=== PATIENT | male | born 1940 | race Caucasian/White ===

== ENCOUNTER → 2016-11-25 | Outpatient (CLI) | payer OTHER ==
[~2016-11-25] MED LIST: ATRINSX NEB; BETH50TA2 PO; BIMA0.01 OPB; CHOL100010 PO; CHOL2000 PO; FLM4 PO; IPRA1AER2 INH; LEVO500T19 PO; LPR100 PO; MISCTAB88 PO; MOME200A INH; NRN600 PO; PRED10TA PO; SNG10 PO; TRAZ50TA35 PO; TYLER650 PO; WARF4TAB43 PO
[2016-11-25 12:13] LABS: HEMATOCRIT 47.3 % (42-52); MEAN CELL VOLUME 94.8 fL (80-100); MEAN CORPUSCULAR HEMOGLOBIN 30.9 pg (25-34); MEAN CORPUSCULAR HGB CONC 32.6 g/dl (32-36); MEAN PLATELET VOLUME 10.4 fL (7.4-10.4); PLATELET COUNT 145 K/uL (130-400); RED BLOOD COUNT 4.99 M/uL (4.7-6.1); WHITE BLOOD COUNT 8.09 K/uL (4.8-10.8)
[2016-11-25 12:18] LABS: URINE APPEARANCE CLEAR (CLEAR); URINE BILIRUBIN NEG (NEG); URINE COLOR YELLOW; URINE NITRITE NEG (NEG); URINE SPECIFIC GRAVITY 1.012 (1.000-1.030); UROBILINOGEN NEG (NEG)
[2016-11-25 12:27] LABS: MANUAL MICROSCOPIC REQUIRED? NO; REVIEW REQ? NO
[2016-11-25 12:34] LABS: ALT/SGPT 25 U/L (12-78); AST/SGOT 17 U/L (15-37); BLOOD UREA NITROGEN 15 mg/dl (7-18); BUN/CREATININE RATIO 7.7 (10-20); CARBON DIOXIDE 33 mmol/L (21-32); CHLORIDE 105 mmol/L (98-107); GLUCOSE 100 mg/dl (70-99); PHOSPHORUS 2.9 mg/dl (2.5-4.9); POTASSIUM 4.2 mmol/L (3.5-5.1); SODIUM 143 mmol/L (136-145)
[2016-11-25 12:54] LABS: URINE PROTIEN/CREAT RATIO 0.2 (0-0.2); URINE TOTAL PROTEIN 23.6 mg/dl (0-11.9)
[2016-11-25 14:40] LABS: CALCIUM 9.2 mg/dl (8.5-10.1)
== END | disposition home or self-care (01) ==
LOC: C.LABBFT 08:53
PROVIDERS: ATTEND Internal Medicine Nephrology
DX: I10 Essential (primary) hypertension (principal); N18.3 Chronic kidney disease, stage 3 (moderate); R60.9 Edema, unspecified; E55.9 Vitamin D deficiency, unspecified; E78.5 Hyperlipidemia, unspecified

== ENCOUNTER → 2016-12-01 | Outpatient (CLI) | payer OTHER ==
--- NOTE | 2016-12-01 14:11 | DIAGNOSTIC IMAGING REPORT ---
TWO VIEW CHEST CLINICAL HISTORY: COPD. History of left lung resection. FINDINGS: PA and lateral chest radiographs are compared to study dated 04/15/2016 and correlated with chest CT dated 09/17/2015. The PA view is degraded by patient rotation. The heart is enlarged and there is atherosclerotic calcification of the thoracic aorta. The pulmonary vasculature is noncongested. Emphysema and chronic interstitial thickening are similar to previous. There is postoperative change and volume loss in the left lung consistent with a history of left sided pulmonary resection. Airspace opacities at the left lung base are similar to previous. The right lung is grossly clear. No pleural effusion is identified. There is no pneumothorax. The skeletal structures are osteopenic. Degenerative change is noted throughout the thoracic spine. Postoperative change is suggested in the left ribs. IMPRESSION: 1. Cardiomegaly and emphysema. 2. There are postoperative changes from left-sided pulmonary resection. 3. Airspace opacities at the left lung base are unchanged from previous. 4. No acute cardiopulmonary abnormality is seen. Electronically signed by: Sanford Loza M.D. 12/01/2016 2:10 PM Dictated Date/Time: 12/01/2016 2:08 PM
== END | disposition home or self-care (01) ==
LOC: C.RAD1850 13:43
PROVIDERS: ATTEND Internal Medicine Nephrology
DX: N18.3 Chronic kidney disease, stage 3 (moderate) (principal); I12.9 Hypertensive chronic kidney disease with stage 1 through stage 4 chronic kidney disease, or unspecified chronic kidney disease; R60.9 Edema, unspecified; I51.7 Cardiomegaly

== ENCOUNTER → 2017-05-26 | Outpatient (CLI) | payer OTHER ==
[~2017-05-26] MED LIST changes: -ATRINSX NEB; -CHOL2000 PO; -LEVO500T19 PO; -PRED10TA PO
[2017-05-26 12:09] LABS: HEMATOCRIT 40.5 % (42-52); MEAN CELL VOLUME 93.5 fL (80-100); MEAN CORPUSCULAR HEMOGLOBIN 30.5 pg (25-34); MEAN CORPUSCULAR HGB CONC 32.6 g/dl (32-36); MEAN PLATELET VOLUME 10.1 fL (7.4-10.4); PLATELET COUNT 149 K/uL (130-400); RED BLOOD COUNT 4.33 M/uL (4.7-6.1); WHITE BLOOD COUNT 8.45 K/uL (4.8-10.8)
[2017-05-26 12:12] LABS: URINE APPEARANCE CLEAR (CLEAR); URINE BILIRUBIN NEG (NEG); URINE COLOR YELLOW; URINE EPITHELIAL CELL AUTO 0-5 /lpf (0-5); URINE NITRITE NEG (NEG); URINE SPECIFIC GRAVITY 1.014 (1.000-1.030); UROBILINOGEN NEG (NEG)
[2017-05-26 12:13] LABS: MANUAL MICROSCOPIC REQUIRED? NO; REVIEW REQ? NO
[2017-05-26 12:18] LABS: BLOOD UREA NITROGEN 14 mg/dl (7-18); BUN/CREATININE RATIO 9.2 (10-20); CALCIUM 9.2 mg/dl (8.5-10.1); CARBON DIOXIDE 33 mmol/L (21-32); CHLORIDE 104 mmol/L (98-107); CHOLESTEROL 148 mg/dl (0-200); CREATININE 1.55 mg/dl (0.60-1.40); GLUCOSE 98 mg/dl (70-99); SODIUM 142 mmol/L (136-145)
[2017-05-26 12:20] LABS: CHOLESTEROL/HDL RATIO 3.5; HDL CHOLESTEROL 42 mg/dl; LDL CHOLESTEROL CALCULATED 84 mg/dl; PHOSPHORUS 2.6 mg/dl (2.5-4.9); TRIGLYCERIDES 110 mg/dl (0-150); VERY LOW DENSITY LIPOPROT CALC 22 mg/dl
[2017-05-26 12:31] LABS: ESTIMATED AVERAGE GLUCOSE 103 mg/dl; HA1C FLAG Normal (Normal)
[2017-05-26 13:20] LABS: URINE PROTIEN/CREAT RATIO 0.2 (0-0.2); URINE TOTAL PROTEIN 21.9 mg/dl (0-11.9)
== END | disposition home or self-care (01) ==
LOC: C.LABBFT 09:55
PROVIDERS: ATTEND Internal Medicine Nephrology
DX: I12.9 Hypertensive chronic kidney disease with stage 1 through stage 4 chronic kidney disease, or unspecified chronic kidney disease (principal); N18.3 Chronic kidney disease, stage 3 (moderate); R60.9 Edema, unspecified; E55.9 Vitamin D deficiency, unspecified; E78.5 Hyperlipidemia, unspecified; R73.01 Impaired fasting glucose

== ENCOUNTER 2017-06-08 17:27 | Inpatient (IN) | payer OTHER ==
[~2017-06-08] VITALS: Ht 182.9 cm; Wt 110.6 kg
[2017-06-08] MEDS ORDERED: ALBUT/IPRATROP 3MG/0.5MG NEB 3 ML VIAL INH STA (18:25)
[2017-06-08] MEDS ORDERED: METHYLPREDNISOLONE 125 MG VIAL IV STA (18:25)
--- NOTE | 2017-06-08 19:04 | DIAGNOSTIC IMAGING REPORT ---
CHEST ONE VIEW PORTABLE CLINICAL HISTORY: 77 years-old Male presenting with EVALUATE RESPIRATORY DISTRESS.DYSPNEA. TECHNIQUE: Portable upright AP view of the chest was obtained. COMPARISON: 12/01/2016. FINDINGS: The patient is BALDWIN rotated. Atherosclerosis of aortic arch. Cardiac silhouette enlarged and largely obscured along the left heart border. Extensive opacification of the left lung suspected allowing for patient rotation. Additionally, focal density projects over the right paratracheal region. No pneumothorax. Osseous structures normal. Upper abdomen normal. IMPRESSION: 1. Limited evaluation secondary to patient rotation and portable AP technique. Further evaluation with chest CT recommended. 2. Cardiomegaly. 3. Extensive left lung opacity likely consolidation with effusion. 4. Right paratracheal density of uncertain etiology. Lymphadenopathy not excluded. Electronically signed by: Brett Graham M.D. 06/08/2017 7:03 PM Dictated Date/Time: 06/08/2017 7:01 PM
[2017-06-08 19:08] LABS: BASO % 0.4 %; BASO ABS # 0.04 K/uL (0-0.2); COMPLETE YES; EOS % 2.7 %; HEMATOCRIT 40.4 % (42-52); IG% 0.2 %; LYMPH % 12.1 %; LYMPH ABS # 1.17 K/uL (1.2-3.4); MEAN CELL VOLUME 93.7 fL (80-100); MEAN CORPUSCULAR HEMOGLOBIN 30.9 pg (25-34); MEAN CORPUSCULAR HGB CONC 32.9 g/dl (32-36); MEAN PLATELET VOLUME 9.6 fL (7.4-10.4); MONO % 5.5 %; NEUT % 79.1 %; PLATELET COUNT 135 K/uL (130-400); RED BLOOD COUNT 4.31 M/uL (4.7-6.1); WHITE BLOOD COUNT 9.63 K/uL (4.8-10.8)
[2017-06-08 19:30] LABS: URINE APPEARANCE CLEAR (CLEAR); URINE BILIRUBIN NEG (NEG); URINE COLOR YELLOW; URINE NITRITE NEG (NEG); URINE SPECIFIC GRAVITY 1.017 (1.000-1.030); UROBILINOGEN NEG (NEG)
[2017-06-08 19:31] LABS: MANUAL MICROSCOPIC REQUIRED? NO; REVIEW REQ? NO
[2017-06-08 19:33] LABS: ALT/SGPT 14 U/L (12-78); AST/SGOT 13 U/L (15-37); BLOOD UREA NITROGEN 8 mg/dl (7-18); CALCIUM 8.4 mg/dl (8.5-10.1); CARBON DIOXIDE 32 mmol/L (21-32); CHLORIDE 101 mmol/L (98-107); GLUCOSE 106 mg/dl (70-99); INR 2.2 (0.9-1.1); PARTIAL THROMBOPLASTIN RATIO 1.5; POTASSIUM 3.6 mmol/L (3.5-5.1); PROTHROMBIN TIME (PATIENT) 24.4 SECONDS (9.0-12.0); SODIUM 137 mmol/L (136-145)
[2017-06-08 19:38] LABS: ALB/GLOB RATIO 0.8 (0.9-2); ALKALINE PHOSPHATASE 60 U/L (45-117); CKMB/CK RATIO 2.1 (0-3.0)
[2017-06-08] MEDS ORDERED: ATRINSX NEB (19:56)
[2017-06-08] MEDS ORDERED: CHOL2000 PO (19:57)
--- NOTE | 2017-06-08 20:49 | DIAGNOSTIC IMAGING REPORT ---
(CHEST) THORAX WITHOUT CLINICAL HISTORY: 77 years-old Male presenting with left sided effusion/mass, abn cxr. TECHNIQUE: Multidetector CT imaging of the chest was performed without the use of intravenous contrast. IV contrast: None. A dose lowering technique was used consistent with the principles of ALARA (as low as reasonably achievable). COMPARISON: Chest x-ray performed earlier the same day an chest CT from 09/17/2015. CT DOSE (mGy.cm): The estimated cumulative dose is 695.59 mGy.cm. FINDINGS: Sash Finisher topogram: Extensive left basilar opacity. On soft tissue windows, bilateral gynecomastia. Normal thyroid. Multiple enlarged mediastinal lymph nodes measuring up to 16 mm in the short axis. These were present on the prior exam and are stable to slightly increased in size. Atherosclerosis of the aorta. Multichamber enlargement of the heart. Coronary artery calcification. No pericardial or pleural effusion. Upper abdomen normal. On lung windows, extensive left lung volume loss stable to slightly increased from prior exam. Groundglass and reticular opacities as well as patchy solid consolidation noted in the left lung primarily in the lingula and basal segments of the left lower lobe. A suture margin may be present at the left lung base. Solid peripheral nodule noted in the superior segment of the left lower lobe measuring 8 mm new from prior. Extensive bronchial wall thickening and debris in the left mainstem bronchus and left lung airways. Only mild bronchial wall thickening noted in the right lung. Minimal patchy groundglass opacity noted in the right lower lobe. Solid 5 mm pulmonary nodule in the right upper lobe (series 4 image 118). Few scattered additional smaller nodules in the right lung. On bone windows, degenerative changes of the spine. IMPRESSION: 1. Interval increase in left lung consolidation primarily in the lingula and basal segments with extensive bronchial wall thickening and debris in the airways of the left lung. This is concerning for chronic aspiration/aspiration pneumonitis. This appearance is less typical for other diagnostic considerations, which include an atypical infection such as mycobacterium avium intracellulare. 2. Scattered nodularity in the lungs bilaterally. This may represent an infectious or inflammatory etiology, however, follow-up per Charlie Society 2017 recommendations below. 3. Stable slight interval increase in mediastinal lymphadenopathy. Although this may be reactive given the presence of inflammation/infection within the lungs, follow-up should be obtained. Please refer to below summary of Fleischner Society 2017 recommendations for follow-up of incidental CT nodules (H Gus et al. Guidelines for management of incidental pulmonary nodules detected on CT images: From the Fleischner Society 2017. Radiology 2017; 284: 228-243.) SOLID NODULES Single nodule; size < 6 mm * Low risk patients: No routine follow-up * High risk patients: Optional CT at 12 months Single nodule; size 6-8 mm * Low risk patients: CT at 6-12 months, then consider CT at 18-24 months * High risk patients: CT at 6-12 months, then at 18-24 months Single nodule; size > 8 mm * Either low or high risk patients: Considered CT at 3 months, PET/CT, or tissue sampling Multiple nodules; size < 6 mm * Low risk patients: No routine follow up * High risk patients: Optional CT at 12 months Multiple nodules; size 6-8 mm * Low risk patients: CT at 3-6 months, then consider CT at 18-24 months * High risk patients: CT at 3-6 months, then at 18-24 months Multiple nodules; size > 8 mm * Low risk patients: CT at 3-6 months, then consider at 18-24 months * High risk patients: CT at 3-6 months, then at 18-24 months Note: These guidelines apply to incidental nodules. These guidelines do not apply to patients younger than 35 years, immunocompromised patients, or patients with cancer. * Low risk patients: Minimal or absent history of smoking and/or other known risk factors * High risk patients: History of smoking, exposure to other carcinogens, emphysema, fibrosis, upper lobe location, family history of lung cancer, etc. * If a nodule up to 8 mm is partly solid or is ground glass, further follow-up is required after 24 months to exclude possible slow growing adenocarcinoma. SUBSOLID NODULES Single ground-glass nodule * Nodule size < 6 mm: No routine follow-up * Nodule size > or = 6 mm: CT at 6-12 months to confirm persistence, then CT every 2 years until 5 years Single part-solid nodule * Nodule size < 6 mm: No routine follow-up * Nodules size > or = 6 mm: CT at 3-6 months to confirm persistence. If unchanged and solid component remains < 6 mm, annual CT should be performed for 5 years Multiple nodules * Nodule size < 6 mm: CT at 3-6 months. If stable, consider CT at 2 and 4 years. * Nodules size > or = 6 mm: CT at 3-6 months. Subsequent management based on the most suspicious nodule(s) Electronically signed by: Brett Graham M.D. 06/08/2017 8:48 PM Dictated Date/Time: 06/08/2017 8:38 PM
[2017-06-08] MEDS ORDERED: PIPERACILLIN/TAZOBACTAM 4.5 GM/100ML D5W IV STA (20:57)
[2017-06-08] MEDS ORDERED: LEVAQUIN 750MG / 150ML D5W IV STA (20:57)
[2017-06-08] MEDS ORDERED: VANCOMYCIN INJ 1,000 MG in SODIUM CHLORIDE 0.9% 250ML 250 ML IV STA (22:27)
[2017-06-08] MEDS ORDERED: ONDANSETRON INJ 2 MG/ML 2 ML VIAL IV PRN ×2 (22:30)
[2017-06-08] MEDS ORDERED: CEFEPIME IV 2,000 MG in DEXTROSE 5% 100ML 100 ML IV SCH (22:30)
[2017-06-08] MEDS ORDERED: ACETAMINOPHEN 325 MG TAB PO PRN (22:30)
[2017-06-08] MEDS ORDERED: IPRATROPIUM BROMIDE NEB SOLN 0.02% 2.5 ML VIAL INH PRN (22:45)
[2017-06-08] MEDS ORDERED: LEVALBUTEROL 1.25MG/0.5ML NEB INH PRN (22:45)
[2017-06-08] MEDS ORDERED: VANCOMYCIN INJ 2,750 MG in SODIUM CHLORIDE 0.9% 500ML 500 ML IV SCH (23:00)
[2017-06-08] MEDS ORDERED: VANCOMYCIN CONSULT ACTIVE PRN (23:15)
[2017-06-08] MEDS ORDERED: CEFEPIME CONSULT ACTIVE PRN ×2 (23:45)
[2017-06-08] MEDS: TRAZODONE HCL 50 MG TAB PO PRN (23:54)
[2017-06-08 23:55] VITALS: BP 164/102; PULSE 108; TEMP 36.4; O2SAT 91; Ht 182.9 cm; Wt 110.6 kg
[2017-06-09] VITALS (10 sets, daily range): BP systolic 158–184; BP diastolic 87–105; PULSE 64–106; TEMP 36.4–36.7; O2SAT 96–97
--- NOTE | 2017-06-09 01:22 | EMERGENCY ROOM VISIT NOTE ---
History Report prepared by Edilia: Toyin Campoverde Under the Supervision of: Dr. Filippo Gibbons M.D. 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 [place] [facility] [place] 1 albuterol nebulizer treatment without relief of dyspnea and cough. Increased home O2 from 2L to 3L. Sent from [facility] [place] at request of primary physician. History of Present Illness The patient is a 77 year old male who presents to the Emergency Room with complaints of constant shortness of breath beginning yesterday. The patient reports having a productive cough with blood tinged sputum beginning 16 hours ago. The [place] [facility] [place] While there, the patient was and given two albuterol nebulizer treatments without any relief. At home, the patient increased his nasal cannula oxygen from 2L to 3L. The patient was sent from [facility] [place] via [place] at request of primary physician. The patient reports blurry vision which has been a ongoing problem that he is following up with a physician for. The patient denies any recent steroid use. The patient states he has felt fatigued and wheezy for the past couple days. The patient has a history of pneumonia. He reports having his flu shot. The patient is on Warfarin for atrial fibrillation. Pt denies LOC, headache, fevers, chills, diaphoresis, neck pain, chest pain, nausea, vomiting, abdominal pain, back pain , melena, hematochezia, urinary symptoms, numbness, weakness, lymphadenopathy, rash, or other complaints. Source of History: patient Onset: yesterday Position: other (global) Quality: other (shortness of breath) Timing: constant Associated Symptoms: + cough, + SOB, + fatigue, No chest pain, No abdominal pain, No back pain, No urinary symptoms Review of Systems See HPI for pertinent positives and negatives. A total of ten systems were reviewed and were otherwise negative. Past Medical & Surgical Medical Problems: (1) ANTICOAGULANTS,LT,CURRENT USE (2) ATRIAL FIBRILLATION (3) Bacterial pneumonia (4) Bacterial pneumonia, unspecified (5) Benign essential hypertension (6) CHRONIC KIDNEY DISEASE, STAGE III (MODERATE) (7) COPD (chronic obstructive pulmonary disease) Family History Diabetes mellitus FHx: kidney disease Heart disease Hypertension Kidney stone Social History Smoking Status: Never Smoker Alcohol Use: none Drug Use: none Marital Status: Housing Status: lives with family Occupation Status: retired Current/Historical Medications Scheduled Bethanechol Chloride (Bethanechol Chloride), 50 MG PO BID Bimatoprost (Lumigan), 1 DROP OPB QPM Cholecalciferol (Vitamin D3), 2,000 UNITS PO DAILY Gabapentin (Gabapentin), 600 MG PO TID Ipratropium Bartelso (Atrovent 0.02% Soln), 1 VIAL NEB TID Ipratropium-Albuterol (Combivent Respimat), 2 PUFFS INH QID Metoprolol Tartrate (Metoprolol Tartrate), 100 MG PO BID Mometasone Furoate-Formoterol (Dulera 200/5 Mcg), 2 PUFFS INH BID Montelukast Sod (Montelukast Sodium), 10 MG PO DAILY Warfarin Sodium (Warfarin Sodium), 2 MG PO DAILY Scheduled PRN Trazodone Hcl (Trazodone), 50 MG PO HS PRN for Sleep Allergies Coded Allergies: No Known Allergies (Unverified , 06/08/17) Physical Exam Vital Signs Date Time Temp Pulse Resp B/P (MAP) Pulse Ox O2 Delivery O2 Flow Rate FiO2 06/08/17 21:59 102 06/08/17 21:46 92 18 174/98 97 Room Air 06/08/17 19:37 Nasal Cannula 2.0 06/08/17 19:37 88 21 165/95 Nasal Cannula 2.0 06/08/17 18:00 Room Air 06/08/17 18:00 100 06/08/17 17:34 36.4 105 20 165/95 97 Nasal Cannula 2.0 06/08/17 17:34 94 Nasal Cannula 2.0 Physical Exam GENERAL: Awake, alert, fatigued and dyspneic-appearing, in no distress HENT: Normocephalic, atraumatic. Oropharynx unremarkable. EYES: Normal conjunctiva. Sclera non-icteric. NECK: Supple. No nuchal rigidity. FROM. No JVD. RESPIRATORY: Expiratory wheezes of right ride CARDIAC: Regular rate, normal rhythm. Extremities warm and well perfused. Pulses equal. ABDOMEN: Soft, non-distended. No tenderness to palpation. No rebound or guarding. No masses. RECTAL: Deferred. MUSCULOSKELETAL: Chest examination reveals no tenderness. The back is symmetrical on inspection without obvious abnormality. There is no CVA tenderness to palpation. No joint edema. LOWER EXTREMITIES: Calves are equal size bilaterally and non-tender. No edema. Chronic venous discoloration of legs. NEURO: Normal sensorium. No sensory or motor deficits noted. SKIN: No rash or jaundice noted. Medical Decision & Procedures ER Provider Diagnostic Interpretation: Radiology results as stated below per my review and radiologist interpretation: CHEST ONE VIEW PORTABLE. FINDINGS: The patient is BALDWIN rotated. Atherosclerosis of aortic arch. Cardiac silhouette enlarged and largely obscured along the left heart border. Extensive opacification of the left lung suspected allowing for patient rotation. Additionally, focal density projects over the right paratracheal region. No pneumothorax. Osseous structures normal. Upper abdomen normal. IMPRESSION: 1. Limited evaluation secondary to patient rotation and portable AP technique. Further evaluation with chest CT recommended. 2. Cardiomegaly. 3. Extensive left lung opacity likely consolidation with effusion. 4. Right paratracheal density of uncertain etiology. Lymphadenopathy not excluded. Electronically signed by: Brett Graham M.D. (CHEST) THORAX WITHOUT FINDINGS: Business Improvement Manager topogram: Extensive left basilar opacity. On soft tissue windows, bilateral gynecomastia. Normal thyroid. Multiple enlarged mediastinal lymph nodes measuring up to 16 mm in the short axis. These were present on the prior exam and are stable to slightly increased in size. Atherosclerosis of the aorta. Multichamber enlargement of the heart. Coronary artery calcification. No pericardial or pleural effusion. Upper abdomen normal. On lung windows, extensive left lung volume loss stable to slightly increased from prior exam. Groundglass and reticular opacities as well as patchy solid consolidation noted in the left lung primarily in the lingula and basal segments of the left lower lobe. A suture margin may be present at the left lung base. Solid peripheral nodule noted in the superior segment of the left lower lobe measuring 8 mm new from prior. Extensive bronchial wall thickening and debris in the left mainstem bronchus and left lung airways. Only mild bronchial wall thickening noted in the right lung. Minimal patchy groundglass opacity noted in the right lower lobe. Solid 5 mm pulmonary nodule in the right upper lobe (series 4 image 118). Few scattered additional smaller nodules in the right lung. On bone windows, degenerative changes of the spine. IMPRESSION: 1. Interval increase in left lung consolidation primarily in the lingula and basal segments with extensive bronchial wall thickening and debris in the airways of the left lung. This is concerning for chronic aspiration/aspiration pneumonitis. This appearance is less typical for other diagnostic considerations, which include an atypical infection such as mycobacterium avium intracellulare. 2. Scattered nodularity in the lungs bilaterally. This may represent an infectious or inflammatory etiology, however, follow-up per Charlie Society 2017 recommendations below. 3. Stable slight interval increase in mediastinal lymphadenopathy. Although this may be reactive given the presence of inflammation/infection within the lungs, follow-up should be obtained. Please refer to below summary of Fleischner Society 2017 recommendations for follow-up of incidental CT nodules (H Gus et al. Guidelines for management of incidental pulmonary nodules detected on CT images: From the Fleischner Society 2017. Radiology 2017; 284: 228-243.) SOLID NODULES Single nodule; size < 6 mm * Low risk patients: No routine follow-up * High risk patients: Optional CT at 12 months Single nodule; size 6-8 mm * Low risk patients: CT at 6-12 months, then consider CT at 18-24 months * High risk patients: CT at 6-12 months, then at 18-24 months Single nodule; size > 8 mm * Either low or high risk patients: Considered CT at 3 months, PET/CT, or tissue sampling Multiple nodules; size < 6 mm * Low risk patients: No routine follow up * High risk patients: Optional CT at 12 months Multiple nodules; size 6-8 mm * Low risk patients: CT at 3-6 months, then consider CT at 18-24 months * High risk patients: CT at 3-6 months, then at 18-24 months Multiple nodules; size > 8 mm * Low risk patients: CT at 3-6 months, then consider at 18-24 months * High risk patients: CT at 3-6 months, then at 18-24 months Note: These guidelines apply to incidental nodules. These guidelines do not apply to patients younger than 35 years, immunocompromised patients, or patients with cancer. * Low risk patients: Minimal or absent history of smoking and/or other known risk factors * High risk patients: History of smoking, exposure to other carcinogens, emphysema, fibrosis, upper lobe location, family history of lung cancer, etc. * If a nodule up to 8 mm is partly solid or is ground glass, further follow-up is required after 24 months to exclude possible slow growing adenocarcinoma. SUBSOLID NODULES Single ground-glass nodule * Nodule size < 6 mm: No routine follow-up * Nodule size > or = 6 mm: CT at 6-12 months to confirm persistence, then CT every 2 years until 5 years Single part-solid nodule * Nodule size < 6 mm: No routine follow-up * Nodules size > or = 6 mm: CT at 3-6 months to confirm persistence. If unchanged and solid component remains < 6 mm, annual CT should be performed for 5 years Multiple nodules * Nodule size < 6 mm: CT at 3-6 months. If stable, consider CT at 2 and 4 years. * Nodules size > or = 6 mm: CT at 3-6 months. Subsequent management based on the most suspicious nodule(s) Electronically signed by: Brett Graham M.D. Laboratory Results 06/08/17 18:51 Red Blood Count 4.31, Mean Corpuscular Volume 93.7, Mean Corpuscular Hemoglobin 30.9, Mean Corpuscular Hemoglobin Concent 32.9, Mean Platelet Volume 9.6, Neutrophils (%) (Auto) 79.1, Lymphocytes (%) (Auto) 12.1, Monocytes (%) (Auto) 5.5, Eosinophils (%) (Auto) 2.7, Basophils (%) (Auto) 0.4, Neutrophils # (Auto) 7.61, Lymphocytes # (Auto) 1.17, Monocytes # (Auto) 0.53, Eosinophils # (Auto) 0.26, Basophils # (Auto) 0.04 06/08/17 18:51 Test 06/08/17 18:51 06/08/17 19:00 White Blood Count 9.63 K/uL (4.8-10.8) Red Blood Count 4.31 M/uL (4.7-6.1) Hemoglobin 13.3 g/dL (14.0-18.0) Hematocrit 40.4 % (42-52) Mean Corpuscular Volume 93.7 fL (80-100) Mean Corpuscular Hemoglobin 30.9 pg (25-34) Mean Corpuscular Hemoglobin Concent 32.9 g/dl (32-36) Platelet Count 135 K/uL (130-400) Mean Platelet Volume 9.6 fL (7.4-10.4) Neutrophils (%) (Auto) 79.1 % Lymphocytes (%) (Auto) 12.1 % Monocytes (%) (Auto) 5.5 % Eosinophils (%) (Auto) 2.7 % Basophils (%) (Auto) 0.4 % Neutrophils # (Auto) 7.61 K/uL (1.4-6.5) Lymphocytes # (Auto) 1.17 K/uL (1.2-3.4) Monocytes # (Auto) 0.53 K/uL (0.11-0.59) Eosinophils # (Auto) 0.26 K/uL (0-0.5) Basophils # (Auto) 0.04 K/uL (0-0.2) RDW Standard Deviation 50.9 fL (36.4-46.3) RDW Coefficient of Variation 14.8 % (11.5-14.5) Immature Granulocyte % (Auto) 0.2 % Immature Granulocyte # (Auto) 0.02 K/uL (0.00-0.02) Prothrombin Time 24.4 SECONDS (9.0-12.0) Prothromb Time International Ratio 2.2 (0.9-1.1) Activated Partial Thromboplast Time 38.5 SECONDS (21.0-31.0) Partial Thromboplastin Ratio 1.5 Anion Gap 4.0 mmol/L (3-11) Est Creatinine Clear Calc Drug Dose 56.0 ml/min Estimated GFR () 55.0 Estimated GFR (Non- 47.5 BUN/Creatinine Ratio 6.0 (10-20) Calcium Level 8.4 mg/dl (8.5-10.1) Total Bilirubin 1.0 mg/dl (0.2-1) Aspartate Amino Transf (AST/SGOT) 13 U/L (15-37) Alanine Aminotransferase (ALT/SGPT) 14 U/L (12-78) Alkaline Phosphatase 60 U/L (45-117) Total Creatine Kinase 43 U/L (39-308) Creatine Kinase MB 0.9 ng/ml (0.5-3.6) Creatine Kinase MB Ratio 2.1 (0-3.0) Troponin I < 0.015 ng/ml (0-0.045) Pro-B-Type Natriuretic Peptide 3926 pg/ml (0-1800) Total Protein 6.9 gm/dl (6.4-8.2) Albumin 3.1 gm/dl (3.4-5.0) Globulin 3.8 gm/dl (2.5-4.0) Albumin/Globulin Ratio 0.8 (0.9-2) Urine Color YELLOW Urine Appearance CLEAR (CLEAR) Urine pH 6.0 (4.5-7.5) Urine Specific [place] 1.017 (1.000-1.030) Urine Protein 1+ (NEG) Urine Glucose (UA) NEG (NEG) Urine Ketones TRACE (NEG) Urine Occult Blood NEG (NEG) Urine Nitrite NEG (NEG) Urine Bilirubin NEG (NEG) Urine Urobilinogen NEG (NEG) Urine Leukocyte Esterase NEG (NEG) Urine WBC (Auto) 1-5 /hpf (0-5) Urine RBC (Auto) 0-4 /hpf (0-4) Urine Hyaline Casts (Auto) 1-5 /lpf (0-5) Urine Epithelial Cells (Auto) 5-10 /lpf (0-5) Urine Bacteria (Auto) NEG (NEG) Laboratory results reviewed by me Medications Administered Medications (Trade) Dose Ordered Sig/Prem Route Start Time Stop Time Status Last Admin Dose Admin Methylprednisolone Sodium Succinate (Solu-Medrol IV) 125 mg NOW STAT IV 06/08/17 18:25 06/08/17 18:26 DC 06/08/17 19:45 125 MG Albuterol/ Ipratropium (Duoneb) 3 ml NOW STAT INH 06/08/17 18:25 06/08/17 18:26 DC 06/08/17 19:37 3 ML Piperacillin Sod/ Tazobactam Sod (Zosyn Iv) 4.5 gm NOW STAT IV 06/08/17 20:57 06/08/17 20:59 DC 06/08/17 21:41 4.5 GM Levofloxacin (Levaquin / D5W) 750 mg NOW STAT IV 06/08/17 20:57 06/08/17 20:59 DC 06/08/17 21:41 750 MG ECG Indication: SOB/dyspnea Rate (beats per minute): 94 Rhythm: atrial fibrillation Findings: RBBB (incomplete), no acute ischemic change, no ectopy ED Course 1817: The patient was evaluated in room B3A. A complete history and physical exam was performed. 5: Ordered DuoNeb 3 ml INH, Solu-Medrol IV 125 mg IV. 1946: I updated the patient on his chest X-ray results. 2056: Ordered Levofloxacin 750 mg IV, Zosyn IV 4.5 gm IV. 2058: I updated the patient on his CT results. 2104: Discussed the patient's case with Dr. Maddox. The patient will be evaluated for further treatment and disposition. Medical Decision Triage Nursing notes reviewed. The patient's presentation and history were concerning for sob. Etiologies such as pneumonia, COPD, reactive airway disease, CHF, cardiac ischemia, pulmonary embolism, pneumothorax, musculoskeletal, infections, gastrointestinal, as well as others were entertained. The patient was evaluated. He was wheezing on examination which was worse on the right side. The patient was given a nebulizer treatment as well as Solu- Medrol. Chest x-ray was performed and was abnormal as above. The patient had a mild anemia on CBC but no leukocytosis. Chemistry panel, LFTs, troponin and urinalysis were unremarkable. BNP was elevated but was just slightly more than prior. Radiology recommended CT imaging of the chest and this was performed. He has consolidation, exploding, and volume loss on the left side. This is concerning. Radiology noted the possibility of aspiration given the CT appearance. The patient was administered Zosyn and Levaquin for antibiotic coverage due to the consolidation and CT findings. He was reassessed and was stable. Consultation was with internal medicine. The patient was evaluated in the Emergency Room for further management. Medication Reconcilliation Current Medication List: was personally reviewed by me Blood Pressure Screening Patient's blood pressure: Elevated blood pressure Blood pressure disposition: Referred to PCP (evaluated by hospitalist ) Consults Time Called: 2104 Consulting Physician: Dr. Maddox Returned Call: 2104 Discussed the patient's case. The patient will be evaluated for further treatment and disposition. Impression Primary Impression: SOB (shortness of breath) Additional Impressions: Pneumonia involving left lung Wheezing Scribe Attestation The scribe's documentation has been prepared under my direction and personally reviewed by me in its entirety. I confirm that the note above accurately reflects all work, treatment, procedures, and medical decision making performed by me. Departure Information Dispostion Being Evaluated By Hospitalist Referrals Luis Colmenares M.D. (PCP) Patient Instructions My [facility] Health Problem Qualifiers
[2017-06-09] MEDS: IPRATROPIUM BROMIDE NEB SOLN 0.02% 2.5 ML VIAL INH SCH ×4 (01:45→19:14)
[2017-06-09] MEDS: LEVALBUTEROL 1.25MG/0.5ML NEB INH SCH ×4 (01:45→19:14)
--- NOTE | 2017-06-09 02:35 | History and Physical ---
History & Physical Date & Time of Service: Jun 09, 2017 at 02:21. The patient was seen and examined on 06/08/2017. Chief Complaint: Bacterial Pneumonia, Unsp. Copd Exacerbatoin Primary Care Physician: Luis Colmenares M.D. History of Present Illness Source: patient, hospital records The patient is a 77-year-old male who is referred to the emergency department by his PCP today for worsening shortness of breath, productive cough with blood tinged sputum, fatigue and wheezing that began yesterday, and did not improve with 2 nebulizer treatments at that office today. He is usually on 2 L of oxygen at home, and he had increased it to 3 L without significant improvement symptoms. He has a previous history of being admitted for pneumonia in 2016. He did get his flu shot this year. He has not had any recent travels or known sick exposures. Past Medical/Surgical History Medical Problems: (1) ANTICOAGULANTS,LT,CURRENT USE Status: Chronic (2) ATRIAL FIBRILLATION Status: Chronic (3) Bacterial pneumonia Status: Resolved (4) Bacterial pneumonia, unspecified Status: Resolved (5) Benign essential hypertension Status: Chronic (6) CHRONIC KIDNEY DISEASE, STAGE III (MODERATE) Status: Chronic (7) COPD (chronic obstructive pulmonary disease) Status: Chronic Family History Diabetes mellitus FHx: kidney disease Heart disease Hypertension Kidney stone Social History Smoking Status: Never Smoker Smokeless Tobacco Use: No Drug Use: none Marital Status: Housing status: lives with family Occupational Status: retired Immunizations History of Influenza Vaccine: Unknown Influenza Vaccine Date: Apr 22, 2011 History of Tetanus Vaccine?: Unknown History of Pneumococcal: Unknown Pneumococcal Date: Jul 22, 2007 History of Hepatitis B Vaccine: Unknown Multi-Drug Resistant Organisms History of MDRO: No Allergies Coded Allergies: No Known Allergies (Unverified , 06/08/17) Home Medications Scheduled Bethanechol Chloride (Bethanechol Chloride), 50 MG PO BID Bimatoprost (Lumigan), 1 DROP OPB QPM Cholecalciferol (Vitamin D3), 2,000 UNITS PO DAILY Gabapentin (Gabapentin), 600 MG PO TID Ipratropium [place] (Atrovent 0.02% Soln), 1 VIAL NEB TID Ipratropium-Albuterol (Combivent Respimat), 2 PUFFS INH QID Metoprolol Tartrate (Metoprolol Tartrate), 100 MG PO BID Mometasone Furoate-Formoterol (Dulera 200/5 Mcg), 2 PUFFS INH BID Montelukast Sod (Montelukast Sodium), 10 MG PO DAILY Warfarin Sodium (Warfarin Sodium), 2 MG PO DAILY Scheduled PRN Trazodone Hcl (Trazodone), 50 MG PO HS PRN for Sleep Review of Systems The patient denies chest pain, palpitations, lower extremity swelling, sore throat, fevers, chills, sweats, weight change. nausea, vomiting, diarrhea or constipation, abdominal pain, pelvic pain, blood in urine or stool, dysuria, urinary frequency or urgency, lightheadedness, dizziness, headache, loss of consciousness, rash, abnormal bruising or bleeding, imbalance, focal weakness, numbness or tingling in arms or legs, generalized arthralgias or myalgias, back or neck pain, or night sweats. The review of systems is otherwise negative other than for that already noted above, and at least 10 systems have been reviewed. Physical Exam Vital Signs Date Time Temp Pulse Resp B/P (MAP) Pulse Ox O2 Delivery O2 Flow Rate FiO2 06/09/17 01:49 92 14 96 Nasal Cannula 2.0 06/08/17 23:55 36.4 108 16 164/102 91 Nasal Cannula 2.0 06/08/17 23:06 90 22 95 Nasal Cannula 2.0 06/08/17 21:59 102 06/08/17 21:46 92 18 174/98 97 Room Air 06/08/17 19:37 Nasal Cannula 2.0 06/08/17 19:37 88 21 165/95 Nasal Cannula 2.0 06/08/17 18:00 Room Air 06/08/17 18:00 100 06/08/17 17:34 36.4 105 20 165/95 97 Nasal Cannula 2.0 06/08/17 17:34 94 Nasal Cannula 2.0 The patient is awake, alert and oriented 3, normocephalic and atraumatic, lying in bed and in no acute distress. HEENT--PERRL, EOMI, mucous membranes and oropharynx dry. Neck--supple, no JVD or bruits, thyroid normal, trachea midline, no adenopathy. Heart--normal S1 and S2, no extra beats, no murmurs, rubs or gallops. Lungs--coarse breath sounds bilaterally, worse on left, no respiratory distress , no accessory muscle use. Abdomen--normal bowel sounds and soft, nontender and nondistended, no hernias or masses, no organomegaly. Extremities--no cyanosis, clubbing or edema. There are good distal pulses b/l. Dermatologic--normal skin turgor, normal color, warm and dry, no abnormal lymph nodes, no rash. Neurologic--cranial nerves II through XII grossly intact. Rheumatologic--normal range of motion. Psychiatric--normal affect. Diagnostics Laboratory Results Results Past 24 Hours Test 06/08/17 18:51 06/08/17 19:00 Range/Units White Blood Count 9.63 4.8-10.8 K/uL Red Blood Count 4.31 4.7-6.1 M/uL Hemoglobin 13.3 14.0-18.0 g/dL Hematocrit 40.4 42-52 % Mean Corpuscular Volume 93.7 80-100 fL Mean Corpuscular Hemoglobin 30.9 25-34 pg Mean Corpuscular Hemoglobin Concent 32.9 32-36 g/dl Platelet Count 135 130-400 K/uL Mean Platelet Volume 9.6 7.4-10.4 fL Neutrophils (%) (Auto) 79.1 % Lymphocytes (%) (Auto) 12.1 % Monocytes (%) (Auto) 5.5 % Eosinophils (%) (Auto) 2.7 % Basophils (%) (Auto) 0.4 % Neutrophils # (Auto) 7.61 1.4-6.5 K/uL Lymphocytes # (Auto) 1.17 1.2-3.4 K/uL Monocytes # (Auto) 0.53 0.11-0.59 K/uL Eosinophils # (Auto) 0.26 0-0.5 K/uL Basophils # (Auto) 0.04 0-0.2 K/uL RDW Standard Deviation 50.9 36.4-46.3 fL RDW Coefficient of Variation 14.8 11.5-14.5 % Immature Granulocyte % (Auto) 0.2 % Immature Granulocyte # (Auto) 0.02 0.00-0.02 K/uL Prothrombin Time 24.4 9.0-12.0 SECONDS Prothromb Time International Ratio 2.2 0.9-1.1 Activated Partial Thromboplast Time 38.5 21.0-31.0 SECONDS Partial Thromboplastin Ratio 1.5 Sodium Level 137 136-145 mmol/L Potassium Level 3.6 3.5-5.1 mmol/L Chloride Level 101 98-107 mmol/L Carbon Dioxide Level 32 21-32 mmol/L Anion Gap 4.0 3-11 mmol/L Blood Urea Nitrogen 8 7-18 mg/dl Creatinine 1.40 0.60-1.40 mg/dl Est Creatinine Clear Calc Drug Dose 56.0 ml/min Estimated GFR () 55.0 Estimated GFR (Non- 47.5 BUN/Creatinine Ratio 6.0 10-20 Random Glucose 106 70-99 mg/dl Calcium Level 8.4 8.5-10.1 mg/dl Total Bilirubin 1.0 0.2-1 mg/dl Aspartate Amino Transf (AST/SGOT) 13 15-37 U/L Alanine Aminotransferase (ALT/SGPT) 14 12-78 U/L Alkaline Phosphatase 60 45-117 U/L Total Creatine Kinase 43 39-308 U/L Creatine Kinase MB 0.9 0.5-3.6 ng/ml Creatine Kinase MB Ratio 2.1 0-3.0 Troponin I < 0.015 0-0.045 ng/ml Pro-B-Type Natriuretic Peptide 3926 0-1800 pg/ml Total Protein 6.9 6.4-8.2 gm/dl Albumin 3.1 3.4-5.0 gm/dl Globulin 3.8 2.5-4.0 gm/dl Albumin/Globulin Ratio 0.8 0.9-2 Urine Color YELLOW Urine Appearance CLEAR CLEAR Urine pH 6.0 4.5-7.5 Urine Specific [place] 1.017 1.000-1.030 Urine Protein 1+ NEG Urine Glucose (UA) NEG NEG Urine Ketones TRACE NEG Urine Occult Blood NEG NEG Urine Nitrite NEG NEG Urine Bilirubin NEG NEG Urine Urobilinogen NEG NEG Urine Leukocyte Esterase NEG NEG Urine WBC (Auto) 1-5 0-5 /hpf Urine RBC (Auto) 0-4 0-4 /hpf Urine Hyaline Casts (Auto) 1-5 0-5 /lpf Urine Epithelial Cells (Auto) 5-10 0-5 /lpf Urine Bacteria (Auto) NEG NEG Microbiology Results 06/08/17 Blood Culture, Received Pending 06/08/17 Blood Culture, Received Pending Diagnostic Radiology Patient Name: FATOUMATA CASTELLANOS Unit Number: [id number] Dictated: 06/08/171900 Transcribed: 06/08/171900 PBS Printed Date/Time: [~ rep prt dt]/[~ rep prt tm] [~ rep ct labl] - [~ rep ct ivnm] [facility] [place] [address] Dictated: 06/08/171900 Transcribed: 06/08/171900 PBS Printed Date/Time: [~ rep prt dt]/[~ rep prt tm] [~ rep ct labl] - [~ rep ct ivnm] CHEST ONE VIEW PORTABLE CLINICAL HISTORY: 77 years-old Male presenting with EVALUATE RESPIRATORY DISTRESS.DYSPNEA. TECHNIQUE: Portable upright AP view of the chest was obtained. COMPARISON: 12/01/2016. FINDINGS: The patient is BALDWIN rotated. Atherosclerosis of aortic arch. Cardiac silhouette enlarged and largely obscured along the left heart border. Extensive opacification of the left lung suspected allowing for patient rotation. Additionally, focal density projects over the right paratracheal region. No pneumothorax. Osseous structures normal. Upper abdomen normal. IMPRESSION: 1. Limited evaluation secondary to patient rotation and portable AP technique. Further evaluation with chest CT recommended. 2. Cardiomegaly. 3. Extensive left lung opacity likely consolidation with effusion. 4. Right paratracheal density of uncertain etiology. Lymphadenopathy not excluded. Electronically signed by: Brett Graham M.D. 06/08/2017 7:03 PM Dictated Date/Time: 06/08/2017 7:01 PM The status of this report is Signed. Draft = Not yet reviewed or approved by Radiologist. Signed = Reviewed and approved by Radiologist. <AttendingPhy></AttendingPhy> <FamilyPhy>Luis Colmenares M.D.</FamilyPhy > <PrimaryPhy>Luis Colmenares M.D.</PrimaryPhy> <UnitNumber>[id number]</ UnitNumber> <VisitNumber>[id number]</VisitNumber> <PatientName>FATOUMATA CASTELLANOS </PatientName> <DateOfBirth>1940</DateOfBirth> <Location>C.EDB</Location> <ServiceDate>06/08/17</ServiceDate> <MNE>ESINDI</MNE> <OrderingPhy>Filippo Gibbons MD</OrderingPhy> <OrderingPhyMNE>f rep ord dr elliott</OrderingPhyMNE> < DictatingPhyMNE>f rep dict dr elliott</DictatingPhyMNE> <CCListMNE>f rep ct mne</ CCListMNE> <AdmittingPhyMNE>f pt admit dr elliott</AdmittingPhyMNE> <AttendingPhyMNE >f pt attend dr elliott</AttendingPhyMNE> <ConsultingPhyMNE>f pt consult dr elliott</ConsultingPhyMNE> <FamilyPhyMNE>f pt fam dr elliott</FamilyPhyMNE> <OtherPhyMNE>f pt other dr elliott</OtherPhyMNE> < PrimaryPhyMNE>f pt prim care dr elliott</PrimaryPhyMNE> <ReferringPhyMNE>f pt referring dr elliott</ReferringPhyMNE> Patient Name: FATOUMATA CASTELLANOS Unit Number: [id number] Dictated: 06/08/172037 Transcribed: 06/08/172037 PBS Printed Date/Time: [~ rep prt dt]/[~ rep prt tm] [~ rep ct labl] - [~ rep ct ivnm] [facility] Radiology Department [place] [id number] Dictated: 06/08/172037 Transcribed: 06/08/172037 PBS Printed Date/Time: [~ rep prt dt]/[~ rep prt tm] [~ rep ct labl] - [~ rep ct ivnm] (CHEST) THORAX WITHOUT CLINICAL HISTORY: 77 years-old Male presenting with left sided effusion/mass, abn cxr. TECHNIQUE: Multidetector CT imaging of the chest was performed without the use of intravenous contrast. IV contrast: None. A dose lowering technique was used consistent with the principles of ALARA (as low as reasonably achievable). COMPARISON: Chest x-ray performed earlier the same day an chest CT from 09/17/2015. CT DOSE (mGy.cm): The estimated cumulative dose is 695.59 mGy.cm. FINDINGS: Drywall Finisher topogram: Extensive left basilar opacity. On soft tissue windows, bilateral gynecomastia. Normal thyroid. Multiple enlarged mediastinal lymph nodes measuring up to 16 mm in the short axis. These were present on the prior exam and are stable to slightly increased in size. Atherosclerosis of the aorta. Multichamber enlargement of the heart. Coronary artery calcification. No pericardial or pleural effusion. Upper abdomen normal. On lung windows, extensive left lung volume loss stable to slightly increased from prior exam. Groundglass and reticular opacities as well as patchy solid consolidation noted in the left lung primarily in the lingula and basal segments of the left lower lobe. A suture margin may be present at the left lung base. Solid peripheral nodule noted in the superior segment of the left lower lobe measuring 8 mm new from prior. Extensive bronchial wall thickening and debris in the left mainstem bronchus and left lung airways. Only mild bronchial wall thickening noted in the right lung. Minimal patchy groundglass opacity noted in the right lower lobe. Solid 5 mm pulmonary nodule in the right upper lobe (series 4 image 118). Few scattered additional smaller nodules in the right lung. On bone windows, degenerative changes of the spine. IMPRESSION: 1. Interval increase in left lung consolidation primarily in the lingula and basal segments with extensive bronchial wall thickening and debris in the airways of the left lung. This is concerning for chronic aspiration/aspiration pneumonitis. This appearance is less typical for other diagnostic considerations, which include an atypical infection such as mycobacterium avium intracellulare. 2. Scattered nodularity in the lungs bilaterally. This may represent an infectious or inflammatory etiology, however, follow-up per Charlie Society 2017 recommendations below. 3. Stable slight interval increase in mediastinal lymphadenopathy. Although this may be reactive given the presence of inflammation/infection within the lungs, follow-up should be obtained. Please refer to below summary of Fleischner Society 2017 recommendations for follow-up of incidental CT nodules (Dale Weber et al. Guidelines for management of incidental pulmonary nodules detected on CT images: From the Fleischner Society 2017. Radiology 2017; 284: 228-243.) SOLID NODULES Single nodule; size < 6 mm * Low risk patients: No routine follow-up * High risk patients: Optional CT at 12 months Single nodule; size 6-8 mm * Low risk patients: CT at 6-12 months, then consider CT at 18-24 months * High risk patients: CT at 6-12 months, then at 18-24 months Single nodule; size > 8 mm * Either low or high risk patients: Considered CT at 3 months, PET/CT, or tissue sampling Multiple nodules; size < 6 mm * Low risk patients: No routine follow up * High risk patients: Optional CT at 12 months Multiple nodules; size 6-8 mm * Low risk patients: CT at 3-6 months, then consider CT at 18-24 months * High risk patients: CT at 3-6 months, then at 18-24 months Multiple nodules; size > 8 mm * Low risk patients: CT at 3-6 months, then consider at 18-24 months * High risk patients: CT at 3-6 months, then at 18-24 months Note: These guidelines apply to incidental nodules. These guidelines do not apply to patients younger than 35 years, immunocompromised patients, or patients with cancer. * Low risk patients: Minimal or absent history of smoking and/or other known risk factors * High risk patients: History of smoking, exposure to other carcinogens, emphysema, fibrosis, upper lobe location, family history of lung cancer, etc. * If a nodule up to 8 mm is partly solid or is ground glass, further follow-up is required after 24 months to exclude possible slow growing adenocarcinoma. SUBSOLID NODULES Single ground-glass nodule * Nodule size < 6 mm: No routine follow-up * Nodule size > or = 6 mm: CT at 6-12 months to confirm persistence, then CT every 2 years until 5 years Single part-solid nodule * Nodule size < 6 mm: No routine follow-up * Nodules size > or = 6 mm: CT at 3-6 months to confirm persistence. If unchanged and solid component remains < 6 mm, annual CT should be performed for 5 years Multiple nodules * Nodule size < 6 mm: CT at 3-6 months. If stable, consider CT at 2 and 4 years. * Nodules size > or = 6 mm: CT at 3-6 months. Subsequent management based on the most suspicious nodule(s) Electronically signed by: Brett Graham M.D. 06/08/2017 8:48 PM Dictated Date/Time: 06/08/2017 8:38 PM The status of this report is Signed. Draft = Not yet reviewed or approved by Radiologist. Signed = Reviewed and approved by Radiologist. <AttendingPhy></AttendingPhy> <FamilyPhy>Luis Colmenares M.D.</FamilyPhy > <PrimaryPhy>Luis Colmenares M.D.</PrimaryPhy> <UnitNumber>[id number]</ UnitNumber> <VisitNumber>[id number]</VisitNumber> <PatientName>FATOUMATA CASTELLANOS </PatientName> <DateOfBirth>1940</DateOfBirth> <Location>C.EDB</Location> <ServiceDate>06/08/17</ServiceDate> <MNE>ESINDI</MNE> <OrderingPhy>Filippo Gibbons MD</OrderingPhy> <OrderingPhyMNE>f rep ord dr elliott</OrderingPhyMNE> < DictatingPhyMNE>f rep dict dr elliott</DictatingPhyMNE> <CCListMNE>f rep ct mne</ CCListMNE> <AdmittingPhyMNE>f pt admit dr elliott</AdmittingPhyMNE> <AttendingPhyMNE >f pt attend dr elliott</AttendingPhyMNE> <ConsultingPhyMNE>f pt consult dr elliott</ConsultingPhyMNE> <FamilyPhyMNE>f pt fam dr elliott</FamilyPhyMNE> <OtherPhyMNE>f pt other dr elliott</OtherPhyMNE> < PrimaryPhyMNE>f pt prim care dr elliott</PrimaryPhyMNE> <ReferringPhyMNE>f pt referring dr elliott</ReferringPhyMNE> EKG EKG shows atrial fibrillation at 94 bpm, incomplete right bundle branch block, no acute ST-T changes Impression Assessment and Plan Lingular and left lower lobe pneumonia/bilateral nodules, mediastinal lymphadenopathy-- Admit to the telemetry unit for close oxygen monitoring. Place on vancomycin IV, cefepime IV and levofloxacin IV. Guaifenesin extended release 600 mg by mouth twice a day Xopenex with Atrovent nebulizer every 6 hours while awake and every 2 hours when necessary Solu-Medrol 30 mg IV every 8 hours Nasal cannula 3 L oxygen titrated to keep pulse ox greater than or equal to 92%. Hold Dulera. 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 Padilla. Atrial fibrillation/hypertension/chronic anticoagulation-- Continue metoprolol tartrate 100 mg by mouth twice a day. Warfarin 2 mg by mouth daily with daily PT/INR. Will need to be held and or possibly reversed if bronchoscopy is to be performed. Peripheral neuropathy-- Continue gabapentin 600 mg by mouth 3 times a day. Glaucoma-- Continue Lumigan Insomnia-- Continue trazodone when necessary Level of Care Telemetry Advanced Directives Existing Advance Directive: No Existing Living Will: No Existing Power of Backend Developer: No Resuscitation Status FULL RESUSCITATION VTE Prophylaxis VTE Risk Assessment Done? Y/N: Yes Risk Level: Moderate Given or contraindicated: Warfarin (Coumadin)
[2017-06-09] MEDS ORDERED: LEVALBUTEROL/IPRATROPIUM NEB INH SCH (03:00)
[2017-06-09] MEDS: METHYLPREDNISOLONE IV 30 MG in SYRINGE 0 ML IV SCH ×3 (04:51→20:35)
[2017-06-09 05:47] LABS: BASO % 0.3 %; BASO ABS # 0.02 K/uL (0-0.2); COMPLETE YES; HEMATOCRIT 41.2 % (42-52); IG% 0.3 %; LYMPH % 9.5 %; LYMPH ABS # 0.63 K/uL (1.2-3.4); MEAN CELL VOLUME 92.6 fL (80-100); MEAN CORPUSCULAR HEMOGLOBIN 30.8 pg (25-34); MEAN CORPUSCULAR HGB CONC 33.3 g/dl (32-36); MEAN PLATELET VOLUME 10.4 fL (7.4-10.4); MONO % 0.8 %; NEUT % 89.1 %; PLATELET COUNT 139 K/uL (130-400); RED BLOOD COUNT 4.45 M/uL (4.7-6.1); WHITE BLOOD COUNT 6.65 K/uL (4.8-10.8)
[2017-06-09 05:59] LABS: INR 2.6 (0.9-1.1); PARTIAL THROMBOPLASTIN RATIO 1.6; PROTHROMBIN TIME (PATIENT) 29.4 SECONDS (9.0-12.0)
[2017-06-09 06:36] LABS: CALCIUM 8.7 mg/dl (8.5-10.1); CREATININE 1.57 mg/dl (0.60-1.40); MAGNESIUM 1.9 mg/dl (1.8-2.4); POTASSIUM 3.9 mmol/L (3.5-5.1)
[2017-06-09] MEDS: BUDESONIDE 0.5 MG/2 ML VIAL (PULMICORT) INH SCH ×2 (07:14→19:14)
[2017-06-09] MEDS: BETHANECHOL CHL 25 MG TAB PO SCH ×2 (07:55→20:37)
[2017-06-09] MEDS: GUAIFENESIN 200 MG TAB PO SCH ×2 (07:55→20:36)
[2017-06-09] MEDS: MONTELUKAST SOD 10 MG TAB PO SCH (07:55)
[2017-06-09] MEDS: GABAPENTIN 600 MG TAB PO SCH ×3 (07:56→20:36)
[2017-06-09] MEDS: METOPROLOL TARTRATE 100 MG TAB PO SCH ×2 (07:56→20:38)
[2017-06-09] MEDS: CHOLECALCIFEROL 1000 INTER.UNIT TAB PO SCH (07:57)
--- NOTE | 2017-06-09 08:44 | Clinical Documentation Query ---
QUERY 1 OF [address] WOOTEN, In your clinical opinion is this patient being managed for: (x ) Possible aspiration pneumonia ( ) Not Agree ( ) Other explanation of clinical findings (Please Explain) ( ) Unable to determine (Please Define) ( ) Need to Discuss The medical record reflects the following clinical findings, treatment, and risk factors. Clinical Indicators:77 yo male presenting with constant dyspnea. CXR indicates L lung consolidation concerning for chronic aspiration/aspiration pneumonitis. Treatment:tele, vancomycin IV, cefepime IV and levofloxacin IV, O2 support, nebs, pulmonary consult Risk Factors: age, COPD QUERY 2 OF 3 In your clinical opinion is this patient being managed for: ( x ) Chronic respiratory failure ( ) Not Agree ( ) Other explanation of clinical findings (Please Explain) ( ) Unable to determine (Please Define) ( ) Need to Discuss The medical record reflects the following clinical findings, treatment, and risk factors. Clinical Indicators: Pt noted to wear chronic home O2 therapy. Treatment: Chronic treatment includes: home O2 therapy, atrovent nebs, combivent, dulera, and singulair Risk Factors: COPD QUERY 3 OF 3 In your clinical opinion is this patient being managed for: ( x ) COPD exacerbation ( ) Not Agree ( ) Other explanation of clinical findings (Please Explain) ( ) Unable to determine (Please Define) ( ) Need to Discuss The medical record reflects the following clinical findings, treatment, and risk factors. Clinical Indicators:Documentation reflects pt with wheezing for the past several days, needing increased O2 support at home. Given albuterol nebs at PCP's office without improvement. Treatment: O2 support, IV solumedrol, pulmonary consult, nebs, IV vancomycin, IV cefepime, IV levaquin, IV zosyn Risk Factors: COPD, pneumonia/aspiration pneumonia Please clarify and document your clinical opinion in the progress notes and discharge summary. Terms such as "probable", "suspected", "likely", "questionable", "possible", or "still to be ruled out" are acceptable. IF IN AGREEMENT, YOU MUST DOCUMENT ABOVE DIAGNOSTIC STATEMENT IN DAILY PROGRESS NOTES AND DISCHARGE SUMMARY. This document is not part of the patient's record. Thank You, Nette Amado RN [phone]
--- NOTE | 2017-06-09 08:54 | Hospitalist Progress Note ---
Hospitalist Progress Note Date of Service Jun 09, 2017. Subjective Pt evaluation today including: conversation w/ patient, physical exam, chart review, lab review, review of studies Pain: None PO Intake: Good Voiding: no voiding problems The patient was seen and examined this morning. Pt reports doing better today compared to yesterday. He is coughing with white-yellow mucous and has a culture cup at bedside. Pt notes he is able to ambulate slowly without feeling short of breath, but that if he hurries he is quickly winded. Pt admits to hemoptysis yesterday morning with pink tinged sputum, denies dark or bright red blood in sputum. Pt denies any chest pain or tightness, fever, sweats or chills. He typically wears 2 L O2 at baseline but was requiring 3 L last evening. Pt spoke with Dr. Padilla this am, and reports bronchoscopy was a possibility. He has outpatient scheduled PFTs in 3 weeks. ROS: 6 point ROS reviewed and otherwise negative. Objective Vital Signs Date Time Temp Pulse Resp B/P (MAP) Pulse Ox O2 Delivery O2 Flow Rate FiO2 06/09/17 07:26 36.7 97 20 162/105 (124) 96 Nasal Cannula 2.0 06/09/17 07:14 64 14 96 Nasal Cannula 2.0 06/09/17 04:00 Nasal Cannula 2.0 06/09/17 01:49 92 14 96 Nasal Cannula 2.0 06/08/17 23:55 36.4 108 16 164/102 91 Nasal Cannula 2.0 06/08/17 23:06 90 22 95 Nasal Cannula 2.0 06/08/17 21:59 102 06/08/17 21:46 92 18 174/98 97 Room Air 06/08/17 19:37 Nasal Cannula 2.0 06/08/17 19:37 88 21 165/95 Nasal Cannula 2.0 06/08/17 18:00 Room Air 06/08/17 18:00 100 06/08/17 17:34 36.4 105 20 165/95 97 Nasal Cannula 2.0 06/08/17 17:34 94 Nasal Cannula 2.0 Physical Exam General Appearance: WD/WN, no apparent distress, + obese Eyes: PERRL, EOMI ENT: hearing grossly normal, pharynx normal Neck: supple, no JVD Respiratory/Chest: chest non-tender, no accessory muscle use, + pertinent finding (on RA initially, and placed NC on 2 L during exam, +inspiratory and expiratory wheeze prominent in the CARI. No crackles or rales.) Cardiovascular: regular rate, rhythm, no murmur Abdomen: normal bowel sounds, non tender, soft Extremities: non-tender, no pedal edema Neurologic/Psychiatric: alert, oriented x 3 Skin: normal color, warm/dry Laboratory Results Last 24 Hours Test 06/08/17 18:51 06/08/17 19:00 06/09/17 05:19 White Blood Count 9.63 K/uL 6.65 K/uL Red Blood Count 4.31 M/uL 4.45 M/uL Hemoglobin 13.3 g/dL 13.7 g/dL Hematocrit 40.4 % 41.2 % Mean Corpuscular Volume 93.7 fL 92.6 fL Mean Corpuscular Hemoglobin 30.9 pg 30.8 pg Mean Corpuscular Hemoglobin Concent 32.9 g/dl 33.3 g/dl Platelet Count 135 K/uL 139 K/uL Mean Platelet Volume 9.6 fL 10.4 fL Neutrophils (%) (Auto) 79.1 % 89.1 % Lymphocytes (%) (Auto) 12.1 % 9.5 % Monocytes (%) (Auto) 5.5 % 0.8 % Eosinophils (%) (Auto) 2.7 % 0.0 % Basophils (%) (Auto) 0.4 % 0.3 % Neutrophils # (Auto) 7.61 K/uL 5.93 K/uL Lymphocytes # (Auto) 1.17 K/uL 0.63 K/uL Monocytes # (Auto) 0.53 K/uL 0.05 K/uL Eosinophils # (Auto) 0.26 K/uL 0.00 K/uL Basophils # (Auto) 0.04 K/uL 0.02 K/uL RDW Standard Deviation 50.9 fL 49.2 fL RDW Coefficient of Variation 14.8 % 14.5 % Immature Granulocyte % (Auto) 0.2 % 0.3 % Immature Granulocyte # (Auto) 0.02 K/uL 0.02 K/uL Prothrombin Time 24.4 SECONDS 29.4 SECONDS Prothromb Time International Ratio 2.2 2.6 Activated Partial Thromboplast Time 38.5 SECONDS 41.1 SECONDS Partial Thromboplastin Ratio 1.5 1.6 Sodium Level 137 mmol/L 137 mmol/L Potassium Level 3.6 mmol/L 3.9 mmol/L Chloride Level 101 mmol/L 102 mmol/L Carbon Dioxide Level 32 mmol/L 30 mmol/L Anion Gap 4.0 mmol/L 5.0 mmol/L Blood Urea Nitrogen 8 mg/dl 9 mg/dl Creatinine 1.40 mg/dl 1.57 mg/dl Est Creatinine Clear Calc Drug Dose 56.0 ml/min 49.0 ml/min Estimated GFR () 55.0 47.9 Estimated GFR (Non- 47.5 41.3 BUN/Creatinine Ratio 6.0 6.0 Random Glucose 106 mg/dl 189 mg/dl Calcium Level 8.4 mg/dl 8.7 mg/dl Total Bilirubin 1.0 mg/dl Aspartate Amino Transf (AST/SGOT) 13 U/L Alanine Aminotransferase (ALT/SGPT) 14 U/L Alkaline Phosphatase 60 U/L Total Creatine Kinase 43 U/L Creatine Kinase MB 0.9 ng/ml Creatine Kinase MB Ratio 2.1 Troponin I < 0.015 ng/ml Pro-B-Type Natriuretic Peptide 3926 pg/ml Total Protein 6.9 gm/dl Albumin 3.1 gm/dl Globulin 3.8 gm/dl Albumin/Globulin Ratio 0.8 Urine Color YELLOW Urine Appearance CLEAR Urine pH 6.0 Urine Specific [place] 1.017 Urine Protein 1+ Urine Glucose (UA) NEG Urine Ketones TRACE Urine Occult Blood NEG Urine Nitrite NEG Urine Bilirubin NEG Urine Urobilinogen NEG Urine Leukocyte Esterase NEG Urine WBC (Auto) 1-5 /hpf Urine RBC (Auto) 0-4 /hpf Urine Hyaline Casts (Auto) 1-5 /lpf Urine Epithelial Cells (Auto) 5-10 /lpf Urine Bacteria (Auto) NEG Magnesium Level 1.9 mg/dl Chemistry Specimen Hemolysis Assessment and Plan This is a77 yo M with PMHx of Lingular and left lower lobe pneumonia/bilateral nodules, mediastinal lymphadenopathy, hemoptysis Chronic respiratory failure exacerbated in the setting of pneumonia COPD - Place on vancomycin IV, cefepime IV and levofloxacin IV - continue for now - Guaifenesin extended release 600 mg PO BID - collect sputum culture - Xopenex with Atrovent nebulizer Q6H while awake and Q2H prn - Solu-Medrol 30 mg IV every 8 hours - Nasal cannula 3 L oxygen titrated to keep pulse ox greater than or equal to 92 %. - Wears 2 L at baseline. - Hold Dulera. - Continue montelukast - Pulmonology consulted - follows with Dr. Padilla. Possible needs for bronchoscopy - will await pulm recs - appreciate Has outpatient PFTs in 3 weeks. Atrial fibrillation/hypertension/chronic anticoagulation-- - Continue metoprolol tartrate 100 mg PO BID - INR therapeutic at 2.6 - Warfarin 2 mg by mouth daily, follow PT/INR. - Will need to hold anticoagulation or possibly reversed if bronchoscopy is to be performed. HTN - BP elevated in the 160s systolically - Continue metoprolol as above, consider IV hydralazine or lopressor if is not better controlled throughout the day. Peripheral neuropathy - Continue gabapentin 600 mg by mouth 3 times a day. Glaucoma - Continue Lumigan Insomnia - Continue trazodone when necessary DVT ppx: coumadin CODE STATUS: FULL CODE Disposition: From home, possible discharge in 1-2 days pending pulmonology recs and possible needs for bronchoscopy.
--- NOTE | 2017-06-09 09:18 | Pharmacy Progress Note ---
Pharmacy Abx Initial Consult Date of Service Jun 09, 2017. Pharmacy Dosing Scope Date of Consult: 06/08/17 Consultation requested by: Dr. Winchester [facility] is consulted to initiate IV VANCOMYCIN and CEFEPIME therapy, order appropriate labs and adjust drug dose/frequency. Subjective The patient is a 77 year old male admitted on Jun 08, 2017 at 22:24 for SOB, cough and wheezing. Objective Height (Feet): 6 Height (Inches): 0.00 Weight (Kilograms): 110.600 Vital Signs (Past 12Hrs) Vital Signs Past 12 Hours Date Time Temp Pulse Resp B/P (MAP) Pulse Ox O2 Delivery O2 Flow Rate FiO2 06/09/17 08:30 Nasal Cannula 2.0 06/09/17 07:26 36.7 97 20 162/105 (124) 96 Nasal Cannula 2.0 06/09/17 07:14 64 14 96 Nasal Cannula 2.0 06/09/17 04:00 Nasal Cannula 2.0 06/09/17 01:49 92 14 96 Nasal Cannula 2.0 06/08/17 23:55 36.4 108 16 164/102 91 Nasal Cannula 2.0 06/08/17 23:06 90 22 95 Nasal Cannula 2.0 06/08/17 21:59 102 06/08/17 21:46 92 18 174/98 97 Room Air Lab Results (24Hrs) Laboratory Tests (24 Hours) Test 06/08/17 18:51 06/09/17 05:19 Total Creatine Kinase 43 U/L (39-308) White Blood Count 6.65 K/uL (4.8-10.8) Red Blood Count 4.45 M/uL (4.7-6.1) L Hemoglobin 13.7 g/dL (14.0-18.0) L Hematocrit 41.2 % (42-52) L Mean Corpuscular Volume 92.6 fL (80-100) Mean Corpuscular Hemoglobin 30.8 pg (25-34) Mean Corpuscular Hemoglobin Concent 33.3 g/dl (32-36) Platelet Count 139 K/uL (130-400) Mean Platelet Volume 10.4 fL (7.4-10.4) Neutrophils (%) (Auto) 89.1 % Lymphocytes (%) (Auto) 9.5 % Monocytes (%) (Auto) 0.8 % Eosinophils (%) (Auto) 0.0 % Basophils (%) (Auto) 0.3 % Neutrophils # (Auto) 5.93 K/uL (1.4-6.5) Lymphocytes # (Auto) 0.63 K/uL (1.2-3.4) L Monocytes # (Auto) 0.05 K/uL (0.11-0.59) L Eosinophils # (Auto) 0.00 K/uL (0-0.5) Basophils # (Auto) 0.02 K/uL (0-0.2) Micro Results Date/Time Source Procedure Growth Status 06/08/17 21:56 Blood Blood Culture Pending Received 06/08/17 21:51 Blood Blood Culture Pending Received Assessment & Plan Assessment * 77 year old male admitted with LLL pneumonia * CT chest read as increased L lung consolidation w/ bronchial wall thickening, concerning for chronic aspiration / aspiration pneumonitis, however a consideration for HOLLI also suggested. Scatter nodularity bilateral possibly secondary to infxn vs inflammation. * Blood cx's pending; no serology ordered; no procalcitonin ordered; no MRSA nasal swab ordered * Afebrile and no leukocytosis noted * No clear risk factors for resistant organisms Plan Vancomycin IV * Loading dose: 2750 mg (~25 mg/kg) given last evening * Maintenance dose: 1500 mg IV (13.6 mg/kg) every 18 hours * Goal trough level for pulmonary infxn : 15 to 20 mcg/mL * Trough level ordered for 06/11/17 w/ 3rd maintenance dose * p'kinetic estimates: Vd 0.65L/kg; half-life ~ 15 hours Cefepime * continue 2gm IV Q 12 hrs as this is the max dose recommended for eCrCl 30-60cc /min; patient's eCrCl falls within this range Pharmacy will continue to follow and will adjust dose/frequency as necessary. Thank you.
[2017-06-09] MEDS: CEFEPIME IV 2,000 MG in SYRINGE 7.5 ML IV SCH ×3 (11:46→23:36)
[2017-06-09] MEDS ORDERED: HydrALAZINE HCL 20 MG/ML VIAL IV. PRN (12:00)
--- NOTE | 2017-06-09 12:50 | Clinical Documentation Query ---
JENIFER 1 OF 3 CLINICAL DOCUMENTATION QUERY Ms. KHALIL, In your clinical opinion is this patient being managed for: ( ) Possible aspiration pneumonia ( ) Not Agree (x ) Other explanation of clinical findings (Please Explain) - Mucous plugging causing pneumonia ( ) Unable to determine (Please Define) ( ) Need to Discuss The medical record reflects the following clinical findings, treatment, and risk factors. Clinical Indicators:77 yo male presenting with constant dyspnea. CXR indicates L lung consolidation concerning for chronic aspiration/aspiration pneumonitis. Treatment:tele, vancomycin IV, cefepime IV and levofloxacin IV, O2 support, nebs, pulmonary consult Risk Factors: age, COPD QUERY 2 OF 3 In your clinical opinion is this patient being managed for: (x ) Chronic respiratory failure ( ) Not Agree ( ) Other explanation of clinical findings (Please Explain) ( ) Unable to determine (Please Define) ( ) Need to Discuss The medical record reflects the following clinical findings, treatment, and risk factors. Clinical Indicators: Pt noted to wear chronic home O2 therapy. Treatment: Chronic treatment includes: home O2 therapy, atrovent nebs, combivent, dulera, and singulair Risk Factors: COPD QUERY 3 OF 3 In your clinical opinion is this patient being managed for: ( ) COPD exacerbation ( x ) Not Agree - see above ( ) Other explanation of clinical findings (Please Explain) ( ) Unable to determine (Please Define) ( ) Need to Discuss The medical record reflects the following clinical findings, treatment, and risk factors. Clinical Indicators:Documentation reflects pt with wheezing for the past several days, needing increased O2 support at home. Given albuterol nebs at PCP's office without improvement. Treatment: O2 support, IV solumedrol, pulmonary consult, nebs, IV vancomycin, IV cefepime, IV levaquin, IV zosyn Risk Factors: COPD, pneumonia/aspiration pneumonia Please clarify and document your clinical opinion in the progress notes and discharge summary. Terms such as "probable", "suspected", "likely", "questionable", "possible", or "still to be ruled out" are acceptable. IF IN AGREEMENT, YOU MUST DOCUMENT ABOVE DIAGNOSTIC STATEMENT IN DAILY PROGRESS NOTES AND DISCHARGE SUMMARY. This document is not part of the patient's record. Thank You, Nette Amado RN [phone]
--- NOTE | 2017-06-09 14:09 | PULMONARY CONSULTATION ---
DATE OF CONSULTATION: 06/09/2017 TIME: 10:20 a.m. REPORT OF CONSULTATION: The patient was seen in room 278, bed 2. He is a pleasant 77-year-old male who was admitted yesterday. The patient had been feeling reasonably well on June 07. He was planning on going hunting on the morning of the . He awakened and did not feel good. He states he was very short of breath. He was fatigued more than normal. He noticed increased wheezing. He coughed up some sputum that he thought was blood tinged. He states it actually was pinkish in color. He was coughing more than normal. He did have some sweating at night. He states he has had some night sweats for a year or two a couple of times per week. The patient told me that he has lost about 30 pounds in a year. However, I went through the outpatient visits and he has lost about 4 pounds compared with 1 year ago. However, he has lost 27 pounds compared with 3 years ago. Thus, it has been more gradual. Pertinent history is that in approximately 1979, he had surgery for removal of a lesion in the left lower lobe that turned out to be benign. He thinks they did not take the entire lobe out but he was not sure. This was done at [facility]. He has had some chronic volume loss in the left lung over the last several years. He has had recurring bouts of pneumonia in the left lung. One occurred in 2013, one in 2014, and once in 2015. The patient carries a history of asthma or COPD, although his pulmonary functions which were last done in 2013 looked to be restrictive in nature. He did have a decreased diffusion capacity at that time of 46%. 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 He was never diagnosed with asbestosis definitively, however. He is feeling much better today. He is less short of breath. He states that he has phlegm which is coming up, but he swallows it instead of spitting it out. He has not noticed any more hemoptysis. It should be noted that he is on warfarin, which certainly could contribute to hemoptysis. In addition to the above-mentioned pulmonary problems in the past, he does have a history of several lung nodules. He also has had mediastinal adenopathy in the past. PAST SURGICAL HISTORY: 1. Left lung resection as noted. 2. TUR of the prostate. PAST MEDICAL HISTORY: 1. Atrial fibrillation. 2. Hypertension. 3. Hyperlipidemia. 4. Chronic kidney disease stage III. 5. BPH. 6. Glaucoma 7. Basal cell carcinoma. SOCIAL HISTORY: Tobacco never. ETOH -- heavy in the past but none for 20 years. ALLERGIES: CIPRO WHICH CAUSES NAUSEA. FAMILY HISTORY: Mother at age 72 of [place]. Father age 92 and in a motor vehicle accident. Sister of CVA. MEDICATIONS: At home: 1. Bethanechol 50 mg b.i.d. 2. Lumigan ophthalmic solution. 3. Vitamin D3. 4. Gabapentin 600 mg t.i.d. 5. Combivent Respimat which he typically takes 1 puff 3 times per day. 6. Nebulizer solutions including ipratropium, levalbuterol, and budesonide. He does not take these regularly. 7. Dulera 200/5 two puffs b.i.d. 8. Montelukast 10 mg daily. 9. Trazodone 50 mg at bedtime p.r.n. 10. Coumadin, most recently 2 mg daily. REVIEW OF SYSTEMS: Negative except for the above-mentioned complaints. Ten systems were reviewed. PHYSICAL EXAMINATION: GENERAL: The patient is a 77-year-old male who is very pleasant. He was cooperative, alert and oriented. He was in no distress. VITAL SIGNS: Temperature is 36.7. HEENT: The patient's eyes are very sensitive to light. It was difficult to evaluate. 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 Mouth exam was unremarkable. NECK: Palpation of the neck reveals no lymph nodes. HEART: Cardiac rate is 98 per minute. The rhythm is irregular and consistent with atrial fibrillation. Blood pressure is 162/105. LUNGS: Auscultation of the lung contreras revealed severely diminished breath sounds on the left compared with the right. There were rales heard predominantly on the left side. The aeration overall was poor though. Saturation was 96% on 2 liters. ABDOMEN: Soft. Bowel sounds were present. There was no tenderness to palpation or definite mass. EXTREMITIES: Showed varicose veins in the lower extremities. There was no cyanosis, clubbing or edema. The patient's chest x-ray was a portable view and the patient was rotated. There was extensive opacification of the left side of the chest. This reflected a change from prior, but was a poor quality x-ray. He then had a CAT scan of the chest done. This showed left lung consolidation in the lingula and in the apparent basal segments of the lower lobe. There was bronchial wall thickening. The possibility of aspiration could not be excluded. The patient did admit that he has some degree of dysphagia. He has scattered nodules in the lungs bilaterally. Over the course of time, I do not think there has been dramatic change. There was one reported in the left lower lobe that reportedly was new, but from prior reports it may have been present previously. He has mediastinal adenopathy and this has increased somewhat. LABORATORY DATA: White count was 9.63. Hemoglobin 13.3. Platelets 135,000. He does have a prior history of decreased platelet counts. INR was 2.2. PTT was 38.5. Urinalysis showed +1 protein. There was only 1-5 WBCs. Electrolytes show sodium 137, potassium 3.6, chloride 101, bicarb 32. BUN was 8 with a creatinine of 1.4 yesterday. Today, the creatinine is up to 1.57. Calcium is 8.4. Liver functions were normal. BNP was 3926. Blood cultures are pending. IMPRESSION: 1. Left lung pneumonia. 2. Significant atelectasis and volume loss, left lung. 3. Mediastinal adenopathy. 4. Multiple lung nodules. 5. Asthma/chronic obstructive pulmonary disease by history. 6. Asbestos exposure. 7. Elevated BNP. 8. Small amount of hemoptysis. 9. Dysphagia. COMMENTS AND RECOMMENDATIONS: The patient has a severely abnormal CAT scan. There is poor aeration. This could be a combination of factors related to his prior surgery as well as having significant mucus. I cannot entirely exclude aspiration. He has had some dysphagia. On occasion he will feel that his food sticks and it is usually higher up. He has never had endoscopy for that. He does feel much better today. He does have a history of recurring pneumonia in the left lung. I spoke to him about the possible need for bronchoscopy. He indicated he does not want to do anything like that at present. He already has a followup appointment to see me in 3 weeks and he would like to wait and just see how everything unfolds. He also mentioned that he had previously had a complication with sedation for a proposed shoulder surgery. He cannot recall when that was, but they gave him something and he had an untoward effect from either sedation or anesthesia. He was not sure what he had received. They had to cancel the procedure and never followed through. The patient does have a history of chronic kidney disease. He does follow with nephrology. In light of this, I am concerned about giving him the vancomycin. We are treating him as either aspiration or community acquired pneumonia. Either way, I think we likely do not need the vancomycin at present but would continue with the levofloxacin and cefepime. They should ideally have less effect on his kidneys. I would like to collect some sputums. We will start incentive spirometry and a flutter valve. As he improves, would give consideration to doing a barium swallow study. Alternatively, he could have a speech swallow evaluation. Would continue the steroids for now. When the patient is home, I would encourage him to use his nebulizer treatments. He prefers to use the inhalers if he can get them paid for because of the time factor. Thank you for asking me to assist in his care.
[2017-06-09] MEDS: WARFARIN SOD 2 MG TAB PO SCH (15:52)
[2017-06-09] MEDS ORDERED: VANCOMYCIN INJ 1,500 MG in SODIUM CHLORIDE 0.9% 500ML 500 ML IV SCH (18:00)
[2017-06-09] MEDS: LEVOFLOXACIN / D5W 500 MG in PREMIXED IN D5W 100 ML IV SCH (20:35)
[2017-06-09] MEDS: BIMATOPROST 0.01% OP SOLN 2.5 ML BTL OPB SCH (20:36)
[2017-06-09] MEDS: TRAZODONE HCL 50 MG TAB PO PRN (22:19)
[2017-06-10] VITALS (12 sets, daily range): BP systolic 145–197; BP diastolic 66–95; PULSE 67–106; TEMP 36.4–36.6; O2SAT 94–98
[2017-06-10] MEDS: LEVALBUTEROL 1.25MG/0.5ML NEB INH SCH ×4 (01:30→19:33)
[2017-06-10] MEDS: IPRATROPIUM BROMIDE NEB SOLN 0.02% 2.5 ML VIAL INH SCH ×4 (01:30→19:33)
[2017-06-10] MEDS: METHYLPREDNISOLONE IV 30 MG in SYRINGE 0 ML IV SCH ×3 (05:14→23:30)
[2017-06-10 05:46] LABS: COMPLETE YES; HEMATOCRIT 38.4 % (42-52); IG% 0.2 %; LYMPH % 6.5 %; LYMPH ABS # 0.93 K/uL (1.2-3.4); MEAN CELL VOLUME 93.2 fL (80-100); MEAN CORPUSCULAR HEMOGLOBIN 31.1 pg (25-34); MEAN CORPUSCULAR HGB CONC 33.3 g/dl (32-36); MEAN PLATELET VOLUME 10.2 fL (7.4-10.4); MONO % 3.1 %; NEUT % 90.2 %; PLATELET COUNT 144 K/uL (130-400); RED BLOOD COUNT 4.12 M/uL (4.7-6.1); WHITE BLOOD COUNT 14.28 K/uL (4.8-10.8)
[2017-06-10 05:50] LABS: INR 2.7 (0.9-1.1); PARTIAL THROMBOPLASTIN RATIO 1.5; PROTHROMBIN TIME (PATIENT) 29.7 SECONDS (9.0-12.0)
[2017-06-10 06:13] LABS: BUN/CREATININE RATIO 11.8 (10-20); CREATININE 1.58 mg/dl (0.60-1.40); MAGNESIUM 2.1 mg/dl (1.8-2.4); POTASSIUM 4.4 mmol/L (3.5-5.1)
[2017-06-10] MEDS: BUDESONIDE 0.5 MG/2 ML VIAL (PULMICORT) INH SCH ×2 (07:05→19:33)
[2017-06-10] MEDS: GABAPENTIN 600 MG TAB PO SCH ×3 (07:38→20:10)
[2017-06-10] MEDS: METOPROLOL TARTRATE 100 MG TAB PO SCH ×2 (07:38→20:10)
[2017-06-10] MEDS: BETHANECHOL CHL 25 MG TAB PO SCH ×2 (07:38→20:08)
[2017-06-10] MEDS: GUAIFENESIN 200 MG TAB PO SCH ×2 (07:38→20:10)
[2017-06-10] MEDS: CHOLECALCIFEROL 1000 INTER.UNIT TAB PO SCH (07:38)
[2017-06-10] MEDS: MONTELUKAST SOD 10 MG TAB PO SCH (07:38)
--- NOTE | 2017-06-10 10:21 | PULMONARY PROGRESS NOTE ---
DATE: 06/10/2017 TIME: 09:40 a.m. SUBJECTIVE: The patient indicates he is feeling better. He feels he is not wheezing as much as before. He has expectorated some phlegm. He states they were able to get a specimen. He has been actively working on his incentive spirometry. He states he can get up between 1000 and 1200 mL. He is complaining of some constipation. He states he takes stool softeners at home. He does complain of chronic insomnia. Apparently, he takes trazodone and melatonin at night. The melatonin is not ordered here at present according to the patient. He did tell me that he usually sleeps at home from about 10:00 p.m. until 10:00 a.m. He insists he does this because his sleeps this long period of time and he tries to match his sleep with hers. He denies daytime sleepiness. OBJECTIVE: GENERAL: The patient is comfortable at rest. VITAL SIGNS: Temperature is 36.4. Heart rate was 75 per minute. The rhythm was irregular. He does have a history of atrial fibrillation. Blood pressure was elevated early this morning at 197/74. Repeat at 09:19 a.m. was 159/74. ENT: Unchanged from prior. CHEST: Auscultation of the lung contreras again reveals diminished breath sounds on the left compared with the right. Also, he has rales in the left chest. Oxygen saturation is 94% on 2 liters. EXTREMITIES: Showed varicose veins, but no edema. IMPRESSIONS: 1. Left lung pneumonia. 2. Significant atelectasis and volume loss of the left lung. 3. Mediastinal adenopathy. 4. Multiple lung nodules. 5. Asthma/chronic obstructive pulmonary disease by history. 6. Small amount of possible hemoptysis. 7. Asbestos exposure by history. 8. Elevated BNP. 9. Dysphagia. COMMENTS AND RECOMMENDATIONS: The patient states he feels clinically better. I would change his steroids to oral. I believe the patient should have a barium swallow to evaluate his esophagus. He is requesting a stool softener. I will order melatonin for him. If he continues to improve, he may be able to be discharged tomorrow. He is anxious to get home to his , who has some health issues. Perhaps a physical therapy evaluation would be appropriate to get him ambulating in the ngo and so forth.
[2017-06-10] MEDS: CEFEPIME IV 2,000 MG in SYRINGE 7.5 ML IV SCH (11:36)
--- NOTE | 2017-06-10 12:58 | DIAGNOSTIC IMAGING REPORT ---
(BARIUM SWALLOW) ESOPHAGUS CLINICAL HISTORY: DYSPHAGIAdysphagia COMPARISON STUDY: 99 FLUOROSCOPY TIME: 0.7 minutes. FINDINGS: Patient initiated swallowing function well. There is evidence for side aspiration. There is no significant cough reflex. Remainder the esophagus is normal in course and caliber. IMPRESSION: Aspiration within thin liquids. No evidence for a significant cough reflex. The above report was generated using voice recognition software. It may contain grammatical, syntax or spelling errors. Electronically signed by: Alverto Mar M.D. 06/10/2017 12:56 PM Dictated Date/Time: 06/10/2017 12:56 PM
[2017-06-10] MEDS ORDERED: POLYETHYLENE (MIRALAX) 17 GM PACK PO PRN (13:00)
--- NOTE | 2017-06-10 13:16 | Hospitalist Progress Note ---
Hospitalist Progress Note Date of Service Jun 10, 2017. Subjective Pt evaluation today including: conversation w/ patient, physical exam, chart review, lab review, review of studies Pain: None PO Intake: NPO for barium swallow The patient was seen and examined this morning. Pt reports feeling well today and report breathing is improved. His cough is minimal and producing white- grayish mucous. He denies any hemoptysis or pink tinged mucous. He denies any shortness of breath with KUO and has been ambulating in the room without any difficult about his room to the bathroom. His oxygen tubing doesnt reach into the sink, so he has actually taken it off both days to wash up, and feels no different. He denies any fever, chills or sweats. He denies any chest pain, chest tightness. No abdominal pain, n/v/d. Pt reports last BM was thursday and is requesting stool softeners and mirilax as he typically uses this at home. ROS: Reviewed as per HPI and otherwise negative. Objective Vital Signs Date Time Temp Pulse Resp B/P (MAP) Pulse Ox O2 Delivery O2 Flow Rate FiO2 06/10/17 12:02 36.4 67 20 169/86 (113) 94 Nasal Cannula 2.0 06/10/17 09:19 75 159/74 (102) 06/10/17 08:00 Nasal Cannula 2.0 06/10/17 07:28 36.4 98 18 197/74 (115) 94 Nasal Cannula 2.0 06/10/17 07:05 90 14 96 Nasal Cannula 2.0 06/10/17 04:00 102 156/78 (104) 06/10/17 01:30 94 14 96 Nasal Cannula 2.0 06/10/17 00:00 Nasal Cannula 2.0 06/09/17 23:54 36.4 106 22 158/89 (112) 96 2.0 06/09/17 19:26 36.6 94 20 169/90 (116) 97 06/09/17 19:14 104 14 96 Nasal Cannula 2.0 06/09/17 16:00 Nasal Cannula 2.0 06/09/17 14:54 36.6 106 20 173/90 (117) 96 Nasal Cannula 2.0 06/09/17 14:29 100 14 96 Nasal Cannula 2.0 06/09/17 13:30 96 170/87 (114) Physical Exam Notes: General Appearance: WD/WN, no apparent distress, + obese Eyes: PERRL, EOMI, no icterus ENT: hearing grossly normal, pharynx normal, MMM Neck: supple, no JVD Respiratory/Chest: chest non-tender, no accessory muscle use, + pertinent finding (on 2 L during exam, +inspiratory and expiratory wheeze prominent in the left lobes. No crackles or rales.) Cardiovascular: regular rate, rhythm, no murmur Abdomen: normal bowel sounds, non tender, soft, + slightly distended Extremities: non-tender, no pedal edema, + chronic venous stasis changes Neurologic/Psychiatric: alert, oriented x 3, mood normal Skin: normal color, warm/dry Laboratory Results Last 24 Hours Test 06/10/17 05:23 White Blood Count 14.28 K/uL Red Blood Count 4.12 M/uL Hemoglobin 12.8 g/dL Hematocrit 38.4 % Mean Corpuscular Volume 93.2 fL Mean Corpuscular Hemoglobin 31.1 pg Mean Corpuscular Hemoglobin Concent 33.3 g/dl Platelet Count 144 K/uL Mean Platelet Volume 10.2 fL Neutrophils (%) (Auto) 90.2 % Lymphocytes (%) (Auto) 6.5 % Monocytes (%) (Auto) 3.1 % Eosinophils (%) (Auto) 0.0 % Basophils (%) (Auto) 0.0 % Neutrophils # (Auto) 12.88 K/uL Lymphocytes # (Auto) 0.93 K/uL Monocytes # (Auto) 0.44 K/uL Eosinophils # (Auto) 0.00 K/uL Basophils # (Auto) 0.00 K/uL RDW Standard Deviation 50.9 fL RDW Coefficient of Variation 15.0 % Immature Granulocyte % (Auto) 0.2 % Immature Granulocyte # (Auto) 0.03 K/uL Prothrombin Time 29.7 SECONDS Prothromb Time International Ratio 2.7 Activated Partial Thromboplast Time 39.0 SECONDS Partial Thromboplastin Ratio 1.5 Sodium Level 138 mmol/L Potassium Level 4.4 mmol/L Chloride Level 105 mmol/L Carbon Dioxide Level 32 mmol/L Anion Gap 1.0 mmol/L Blood Urea Nitrogen 19 mg/dl Creatinine 1.58 mg/dl Est Creatinine Clear Calc Drug Dose 48.7 ml/min Estimated GFR () 47.5 Estimated GFR (Non- 41.0 BUN/Creatinine Ratio 11.8 Random Glucose 145 mg/dl Calcium Level 9.0 mg/dl Magnesium Level 2.1 mg/dl Assessment and Plan This is a77 yo M with PMHx of Lingular and left lower lobe pneumonia/bilateral nodules, mediastinal lymphadenopathy, hemoptysis Chronic respiratory failure exacerbated in the setting of pneumonia, possible aspiration pneumonia COPD - Continue cefepime IV and levofloxacin IV- will stop vancomycin. - Guaifenesin extended release 600 mg PO BID - collect sputum culture - in process - Xopenex with Atrovent nebulizer Q6H while awake and Q2H prn - Solu-Medrol 30 mg IV Q12 H today and transition to oral prednisone tomorrow - Nasal cannula 3 L oxygen titrated to keep pulse ox greater than or equal to 92 %. - Wears 2 L at baseline. - Hold Dulera. - Continue montelukast - Pulmonology consulted - follows with Dr. Padilla. - Ordered a barium swallow study for possibly dysphagia today at 12:30p. Will await results. - Possible needs for bronchoscopy - pt does NOT want this study, he would prefer to follow up as an outpatient in [address] Padilla and have his routinely scheduled PFTs. Pulm agrees and does not see need for emergent bronch. Atrial fibrillation/hypertension/chronic anticoagulation - Continue metoprolol tartrate 100 mg PO BID - INR therapeutic at 2.6 - Warfarin 2 mg by mouth daily, follow PT/INR. HTN - BPin 150s today after morning medications - Continue metoprolol as above, consider IV hydralazine or lopressor if is not better controlled throughout the day. Peripheral neuropathy - Continue gabapentin 600 mg by mouth 3 times a day. Glaucoma - Continue Lumigan Insomnia - Continue trazodone when necessary DVT ppx: coumadin CODE STATUS: FULL CODE Disposition: From home, possible discharge in 1 day pending barium swallow
[2017-06-10] MEDS ORDERED: BISACODYL 5 MG TABEC PO PRN (14:00)
[2017-06-10] MEDS: WARFARIN SOD 2 MG TAB PO SCH (15:34)
[2017-06-10] MEDS: LEVOFLOXACIN / D5W 500 MG in PREMIXED IN D5W 100 ML IV SCH (20:08)
[2017-06-10] MEDS: BIMATOPROST 0.01% OP SOLN 2.5 ML BTL OPB SCH (20:08)
[2017-06-10] MEDS: TRAZODONE HCL 50 MG TAB PO PRN (21:55)
[2017-06-11] MEDS: IPRATROPIUM BROMIDE NEB SOLN 0.02% 2.5 ML VIAL INH SCH ×3 (03:00→14:37)
[2017-06-11] MEDS: LEVALBUTEROL 1.25MG/0.5ML NEB INH SCH ×3 (03:00→14:37)
[2017-06-11] MEDS ORDERED: VANCOMYCIN TROUGH ONE (05:30)
[2017-06-11 07:12] LABS: BASO % 0.1 %; BASO ABS # 0.01 K/uL (0-0.2); COMPLETE YES; HEMATOCRIT 39.1 % (42-52); IG% 0.5 %; LYMPH % 7.1 %; LYMPH ABS # 0.88 K/uL (1.2-3.4); MEAN CELL VOLUME 93.5 fL (80-100); MEAN CORPUSCULAR HEMOGLOBIN 31.1 pg (25-34); MEAN CORPUSCULAR HGB CONC 33.2 g/dl (32-36); MEAN PLATELET VOLUME 9.9 fL (7.4-10.4); MONO % 2.8 %; NEUT % 89.5 %; PLATELET COUNT 146 K/uL (130-400); RED BLOOD COUNT 4.18 M/uL (4.7-6.1); WHITE BLOOD COUNT 12.36 K/uL (4.8-10.8)
[2017-06-11 07:17] LABS: INR 2.8 (0.9-1.1); PARTIAL THROMBOPLASTIN RATIO 1.4; PROTHROMBIN TIME (PATIENT) 31.4 SECONDS (9.0-12.0)
[2017-06-11] MEDS: BUDESONIDE 0.5 MG/2 ML VIAL (PULMICORT) INH SCH (07:28)
[2017-06-11 07:29] VITALS: PULSE 72; O2SAT 98
[2017-06-11 07:43] LABS: BUN/CREATININE RATIO 14.3 (10-20); CALCIUM 9.2 mg/dl (8.5-10.1); CREATININE 1.48 mg/dl (0.60-1.40); MAGNESIUM 2.2 mg/dl (1.8-2.4); POTASSIUM 4.3 mmol/L (3.5-5.1)
[2017-06-11 08:15] VITALS: BP 164/82; PULSE 78; TEMP 36.5; O2SAT 93
[2017-06-11] MEDS: GUAIFENESIN 200 MG TAB PO SCH (09:42)
[2017-06-11] MEDS: CHOLECALCIFEROL 1000 INTER.UNIT TAB PO SCH (09:42)
[2017-06-11] MEDS: MONTELUKAST SOD 10 MG TAB PO SCH (09:42)
[2017-06-11] MEDS: GABAPENTIN 600 MG TAB PO SCH ×2 (09:42→14:32)
[2017-06-11] MEDS: BETHANECHOL CHL 25 MG TAB PO SCH (09:43)
[2017-06-11] MEDS: METOPROLOL TARTRATE 100 MG TAB PO SCH (10:17)
--- NOTE | 2017-06-11 13:02 | PROGRESS NOTE ---
DATE: 06/11/2017 PULMONARY PROGRESS NOTE PROBLEM LIST: Includes: Left-sided pneumonia, significant atelectasis and volume loss in the left lung, mediastinal adenopathy, multiple lung nodules. SUBJECTIVE: The patient is a 77-year-old male who was admitted for increased shortness of breath and possible pneumonia. The patient was treated with antibiotics in the form of vancomycin, cefepime and Levaquin. The patient, when I saw him today, he is feeling much better, steroids have been cut down, his procalcitonin was unremarkable. Reports today that he feels like his breathing is back to his baseline, did have a little bit of cough last night with some white mucus produced, but otherwise cough is better than normal. He has not had any wheezing. He has not had any chest heaviness or tightness. He is not moving around in his room and has not had any difficulty. He is using oxygen which he states that he uses at home. He feels that he is ready to go home. Would like to go home today if possible. He did have a video swallow yesterday. The video swallow did show aspiration with thin liquids. Speech therapy is now seeing the patient. Denies any other concerns or problems at this time. No chest pain, no palpitations, no fever or chills that he is aware of. No GI disturbances, no nausea or vomiting, no difficulty with his bowels. No difficulty with his voiding. No swelling in his extremities. OBJECTIVE: GENERAL: The patient is a 77-year-old male sitting at bedside, in no acute distress, no respiratory distress. Able to complete sentences without any difficulty. He is alert and oriented x3. Mood is good. Affect is good. VITAL SIGNS: Temperature 36.5, pulse 78, respirations 20, blood pressure is 164/82, pulse ox 93-98% on 2 liters. HEENT: Normocephalic, atraumatic. Pupils equal, round, reactive to light and accommodation. Extraocular movements are intact. [place] moist gingival and buccal mucosa. NECK: Supple. No mass. No adenopathy. No bruit. CHEST: Diminished breath sounds bilaterally. Chest is showing some coarse breath sounds on the left. No significant rhonchi at this time. CARDIOVASCULAR: Irregularly irregular. No murmurs, gallops or rubs appreciated. ABDOMEN: Bowel sounds are present. Abdomen is soft, nontender. No guarding, rigidity or organomegaly. EXTREMITIES: Trace edema, no erythema, no tenderness. No cyanosis or clubbing noted. NEUROLOGIC: Cranial nerves II-XII are intact. No focal deficit noted. LABORATORY DATA: Shows a white count of 12,000, H&H 13.0 at 39.1, platelet count 146,000. INR 2.8. BUN 21, creatinine down to 1.48. Preliminary sputum culture shows few gram positive cocci, few gram negative bacilli, few yeast, few gram negative diplococci. IMAGING DATA: No new imaging aside from the video swallow which was already discussed. IMPRESSION: The patient is a 77-year-old male with asthma who given the hospital-associated pneumonia is doing better. Also has a history for partial lobectomy on the left with significant atelectasis with volume loss, multiple lung nodules and mediastinal adenopathy and aspiration, it appears the patient is aspirating at this time. PLAN: For speech to see the patient today for evaluation. Earlier Dr. Padilla did discuss the evaluation for the right upper lobe lung nodule that has recently presented, the patient wishes to go home. He has a who has some health issues that he helps take care of. He is concerned about that. From a pulmonary standpoint, he seems to be stable at this time. He did not seem to be having any difficulties and it appears that he is close to being back to his normal state. At this point, I think that the patient can safely be discharged home from pulmonary perspective. Would recommend that he complete an 8-day prednisone taper. He is to continue his routine medications, home pulmonary toilet as it is, await speech therapy recommendations for home. The patient does have a followup appointment with Dr. Padilla in approximately 2-3 weeks. This will be a good timeframe for his hospital followup. He is to keep that appointment.
[2017-06-11] MEDS ORDERED: PRED10TA PO (13:10)
[2017-06-11] MEDS ORDERED: LEVO500T19 PO (13:10)
--- NOTE | 2017-06-11 13:19 | Discharge Instructions ---
Discharge Instructions Date of Service Jun 11, 2017. Admission Reason for Admission: Bacterial Pneumonia, Unsp. Copd Exacerbatoin Discharge Discharge Diagnosis / Problem: Aspiration Pneumonia, COPD exacerbation Discharge Goals Goal(s): Decrease discomfort, Improve function, Increase independence, Improve disease control Activity Recommendations Activity Limitations: resume your previous activity Lifting Limitations: no more than 25 pounds, gradually increase as tolerated Exercise/Sports Limitations: none, gradually increase as tolerated May Resume Sexual Activity: when tolerated Shower/Bathe: no limitations Driving or Machine Use: no limitations . Instructions / Follow-Up Instructions / Follow-Up You were admitted to [facility] with aspiration pneumonia and COPD exacerbation. During your stay here you were treated with antibiotics, steroids and other supportive care. You were evaluated by pulmonology and it was recommended that you follow up with PFTs and Dr. Padilla in 3 weeks. A Barium swallow study was completed and showed aspiration with thin liquids, you were evaluated by Speech therapy during your stay. Speech recommendations: Medications: For pneumonia: Continue taking levaquin 500 mg x 2 more doses every other day starting tomorrow, 06/12/17 For COPD exacerbation: Take the prednisone taper as follows starting on 06/12 40mg (4 tabs) once daily x 2 days 30 mg (3 tabs) once daily x 2 days 20 mg (2 tabs) once daily x 2 days 10 mg (1 tab) once daily x 2 days and then STOP. Continue taking your other medications as instructed. Appointments: Follow up with your Primary Care Provider within 1 week. Follow up with Pulmonology within 3 weeks as already scheduled Current Hospital Diet Patient's current hospital diet: AHA Diet (Heart Healthy) Discharge Diet Recommended Diet: AHA Diet (Heart Healthy) Pending Studies Studies pending at discharge: no Laboratory Results Hemoglobin A1c Test 05/26/17 10:12 Range/Units Estimated Average Glucose 103 mg/dl Hemoglobin A1c 5.2 4.5-5.6 % Lipid Panel Test 05/26/17 10:12 Range/Units Triglycerides Level 110 0-150 mg/dl Cholesterol Level 148 0-200 mg/dl HDL Cholesterol 42 mg/dl Cholesterol/HDL Ratio 3.5 LDL Cholesterol, Calculated 84 mg/dl Medical Emergencies . Who to Call and When: Medical Emergencies: If at any time you feel your situation is an emergency, please call 911 immediately. . Non-Emergent Contact Non-Emergency issues call your: Primary Care Provider Call Non-Emergent contact if: you have a fever, temperature is above 100.5, your pain is not controlled, your pain is worsening, your pain is unusual for you, your pain is concerning you, you have any medication questions other concerns with your health. Call 911 or go directly to the Emergency Department if you experience any of the following: Chest pain, chest tightness, shortness of breath, abdominal pain , lightheadedness, dizziness, gastrointestinal bleeding, or have any other concerns regarding your health. . Past History Medical & Surgical History: (1) Bacterial pneumonia (2) COPD exacerbation (3) ATRIAL FIBRILLATION (4) Benign essential hypertension (5) CHRONIC KIDNEY DISEASE, STAGE III (MODERATE) . "Provider Documentation" section prepared by Shanel Moncada. . VTE Core Measure Inpt VTE Proph given/why not?: Warfarin (Coumadin)
--- NOTE | 2017-06-11 13:22 | Discharge Summary ---
Discharge Summary Date of Service Jun 11, 2017. Discharge Summary Admission Date: Jun 08, 2017 at 22:24 Discharge Date: Jun 11, 2017 Principal Diagnosis: Aspiration Pneumonia and COPD exacerbation Problems/Secondary Diagnoses: Lingular and left lower lobe pneumonia/bilateral nodules, mediastinal lymphadenopathy, hemoptysis Chronic respiratory failure exacerbated in the setting of aspiration pneumonia COPD acute on chronic exacerbation Atrial fibrillation/hypertension/chronic anticoagulation HTN Peripheral neuropathy Glaucoma Insomnia Immunizations: Have You Had Influenza Vaccine: Unknown Influenza Vaccine Date: Apr 22, 2011 History of Tetanus Vaccine?: Unknown History of Pneumococcal: Unknown Pneumococcal Date: Jul 22, 2007 History of Hepatitis B Vaccine: Unknown Procedures: CHEST ONE VIEW PORTABLE 06/08/17 IMPRESSION: 1. Limited evaluation secondary to patient rotation and portable AP technique. Further evaluation with chest CT recommended. 2. Cardiomegaly. 3. Extensive left lung opacity likely consolidation with effusion. 4. Right paratracheal density of uncertain etiology. Lymphadenopathy not excluded. (CHEST) THORAX WITHOUT 06/08/17 IMPRESSION: 1. Interval increase in left lung consolidation primarily in the lingula and basal segments with extensive bronchial wall thickening and debris in the airways of the left lung. This is concerning for chronic aspiration/aspiration pneumonitis. This appearance is less typical for other diagnostic considerations, which include an atypical infection such as mycobacterium avium intracellulare. 2. Scattered nodularity in the lungs bilaterally. This may represent an infectious or inflammatory etiology, however, follow-up per [employer] 2017 recommendations below. 3. Stable slight interval increase in mediastinal lymphadenopathy. Although this may be reactive given the presence of inflammation/infection within the lungs, follow-up should be obtained. (BARIUM SWALLOW) ESOPHAGUS 06/10/17 FINDINGS: Patient initiated swallowing function well. There is evidence for side aspiration. There is no significant cough reflex. Remainder the esophagus is normal in course and caliber. IMPRESSION: Aspiration within thin liquids. No evidence for a significant cough reflex. Consultations: Pulmonology Medication Reconciliation New Medications: Levofloxacin (Levaquin) 500 Mg Tab 1 TAB PO Q2D for 2 Days, #2 TAB Take 1st dose on 06/12 and the next on 06/14 to finish a 7 day course. Prednisone Tab (Prednisone) 10 Mg Tab 10 MG PO UD for 8 Days, #20 TAB Continued Medications: Bethanechol Chloride (Bethanechol Chloride) 50 Mg Tab 50 MG PO BID Bimatoprost (Lumigan) 0.01 % Edith 1 DROP OPB QPM Cholecalciferol (Vitamin D3) 2,000 Unit Cap 2000 UNITS PO DAILY for 90 Days, CAP 3 Refills Gabapentin (Gabapentin) 600 Mg Tab 600 MG PO TID Ipratropium [place] (Atrovent 0.02% Soln) 2.5 Ml Nebu 1 VIAL NEB TID Ipratropium-Albuterol (Combivent Respimat) 1 Aer Aer 2 PUFFS INH QID, INH Metoprolol Tartrate (Metoprolol Tartrate) 100 Mg Tab 100 MG PO BID Mometasone Furoate-Formoterol (Dulera 200/5 Mcg) 1 Aer Aer 2 PUFFS INH BID Montelukast Sod (Montelukast Sodium) 10 Mg Tab 10 MG PO DAILY Trazodone Hcl (Trazodone) 50 Mg Tab 50 MG PO HS PRN for Sleep, TAB Warfarin Sodium (Warfarin Sodium) 2 Mg Tab 2 MG PO DAILY Discharge Exam The patient was seen and examined this morning. Pt reports feeling well today. He reports occasional cough with minimal production. He denies any shortness of breath with exertion about the room. He denies shortness of breath at rest. No fever, chills or sweats. In regards to aspiration, I asked the patient about sleep habits. He reports chronically sleeping on his left side, that he's more comfortable here, and reports this is his "side of the bed". He typically feels food get stuck but only with things like toast or meat where he needs to take a drink. Results of barium study were discussed with him and speech therapy plans to see him early this afternoon. ROS: 10 point ROS reviewed and otherwise negative. PE: General Appearance: WD/WN, no apparent distress, + obese Eyes: PERRL, EOMI, no icterus ENT: hearing grossly normal, pharynx normal, MMM Neck: supple, no JVD Respiratory/Chest: chest non-tender, no accessory muscle use, + pertinent finding (on 2 L during exam, +inspiratory and expiratory wheeze minimal in the left lobes. Good aeration in the right. No crackles or rales.) Cardiovascular: regular rate, rhythm, no murmur Abdomen: normal bowel sounds, non tender, soft, nondistended. Extremities: non-tender, no pedal edema, + chronic venous stasis changes bilaterally Neurologic/Psychiatric: alert, oriented x 3, mood normal Skin: normal color, warm/dry Hospital Course History of Present Illness Source: patient, hospital records The patient is a 77-year-old male who is referred to the emergency department by his PCP today for worsening shortness of breath, productive cough with blood tinged sputum, fatigue and wheezing that began yesterday, and did not improve with 2 nebulizer treatments at that office today. He is usually on 2 L of oxygen at home, and he had increased it to 3 L without significant improvement symptoms. He has a previous history of being admitted for pneumonia in 2016. He did get his flu shot this year. He has not had any recent travels or known sick exposures. Physical Exam: The patient is awake, alert and oriented 3, normocephalic and atraumatic, lying in bed and in no acute distress. HEENT--PERRL, EOMI, mucous membranes and oropharynx dry. Neck--supple, no JVD or bruits, thyroid normal, trachea midline, no adenopathy. Heart--normal S1 and S2, no extra beats, no murmurs, rubs or gallops. Lungs--coarse breath sounds bilaterally, worse on left, no respiratory distress , no accessory muscle use. Abdomen--normal bowel sounds and soft, nontender and nondistended, no hernias or masses, no organomegaly. Extremities--no cyanosis, clubbing or edema. There are good distal pulses b/l. Dermatologic--normal skin turgor, normal color, warm and dry, no abnormal lymph nodes, no rash. Neurologic--cranial nerves II through XII grossly intact. Rheumatologic--normal range of motion. Psychiatric--normal affect. Hospital Course: This is a77 yo M admitted with aspiration pneumonia and COPD exacerbation: Lingular and left lower lobe pneumonia/bilateral nodules, mediastinal lymphadenopathy, hemoptysis Chronic respiratory failure exacerbated in the setting of pneumonia, found to be aspiration pneumonia COPD - Pt was initially treated with vanc, cefepime and levaquin while in the hospital - antibiotics were downgraded to levaquin alone and to be continued at the time of discharge x 2 more doses to complete a 7 day course. - Barium swallow study indicated aspiration with thin liquids, and poor gag reflex. Pt chronically sleeps on his left side, and has hx of surgical resection in the left lobe which likely potentiates infection to occur in this area. - Pulmonology consulted - follows with Dr. Padilla. - Speech evaluated on 06/11 and the patient did not require alteration in food consistency or thickened liquids. - During admission discussion re bronchoscopy was brought up by Pulmonology - pt does NOT want this study, he would prefer to follow up as an outpatient in [address] Padilla and have his routinely scheduled PFTs. Pulm agrees and does not see need for emergent bronch. - Guaifenesin extended release 600 mg PO BID - sputum culture was collected but only showed normal pharyngeal growth. - Xopenex with Atrovent nebulizer Q6H while awake and Q2H prn - Solu-Medrol was used and pt was transitioned to a prednisone taper at time of discharge - 40 mg x 2 days, and decreasing by 10 mg every 2 days until gone. Total 8 day course. - Nasal cannula 3 L oxygen titrated to keep pulse ox greater than or equal to 92 %. - Wears 2 L at baseline. - Held Dulera during admission - resume upon discharge - Continue montelukast Atrial fibrillation/hypertension/chronic anticoagulation - Continue metoprolol tartrate 100 mg PO BID - INR therapeutic at 2.8 on day of dc - Warfarin 2 mg by mouth daily, follow PT/INR. HTN - BP stable - Continue metoprolol as above Peripheral neuropathy - Continue gabapentin 600 mg by mouth 3 times a day. Glaucoma - Continue Lumigan Insomnia - Continue trazodone when necessary DVT ppx: coumadin CODE STATUS: FULL CODE Disposition: From home, discharge home today Total Time Spent: Greater than 30 minutes This includes examination of the patient, discharge planning, medication reconciliation, and communication with other providers. Discharge Instructions Please refer to the electronic Patient Visit Report (Discharge Instructions) for additional information. Follow-Up Follow up with your Primary Care Provider within 1 week. Follow up with Pulmonology within 3 weeks as already scheduled Additional Copies To Luis Colmeanres M.D.
[2017-06-11] MEDS: METHYLPREDNISOLONE IV 30 MG in SYRINGE 0 ML IV SCH (14:31)
[2017-06-11 14:35] VITALS: BP 164/82; PULSE 78; TEMP 36.5; O2SAT 93
--- NOTE | 2017-06-11 14:57 | DIAGNOSTIC IMAGING REPORT ---
VIDEO SWALLOW STUDY CLINICAL HISTORY: Aspiration. COMPARISON STUDY: Barium esophagram dated 06/10/2017. Fluoroscopy time: 2.1 minutes. FINDINGS: Fluoroscopic guidance was provided to the Department of Speech Pathology in performing a video swallow study. The patient consumed barium impregnated pudding, cracker with paste, nectar thick liquid, and thin barium while the swallowing mechanism was observed in real-time. There is pharyngeal penetration seen with thin barium. No aspiration was clearly identified. No penetration or aspiration was seen with the remaining sampled textures. A small metallic foreign body is present in the neck. IMPRESSION: 1. There is pharyngeal penetration with thin barium. No aspiration was seen during today's examination. 2. See dedicated speech pathology report for detailed findings and recommendations. Dictated: 06/11/2017 2:31 PM Transcribed: 06/11/2017 2:56 PM [place] Electronically signed by: Sanford Loza M.D. 06/11/2017 3:10 PM Dictated Date/Time: 06/11/2017 2:31 PM
== END 2017-06-11 15:14 | disposition home health service (06) | DRG 178 ==
LOC: EDBD 17:27 → C.EDB 17:28 → C.MED 22:24 → ENRESERV 22:51
PROVIDERS: ADMIT Hospitalist; ATTEND Internal Medicine
DX: J69.0 Pneumonitis due to inhalation of food and vomit (principal); R04.2 Hemoptysis; J44.1 Chronic obstructive pulmonary disease with (acute) exacerbation; J96.10 Chronic respiratory failure, unspecified whether with hypoxia or hypercapnia; N18.3 Chronic kidney disease, stage 3 (moderate); I48.91 Unspecified atrial fibrillation; I12.9 Hypertensive chronic kidney disease with stage 1 through stage 4 chronic kidney disease, or unspecified chronic kidney disease; G62.9 Polyneuropathy, unspecified; H40.9 Unspecified glaucoma; G47.00 Insomnia, unspecified; Z79.01 Long term (current) use of anticoagulants; Z79.899 Other long term (current) drug therapy; Z99.81 Dependence on supplemental oxygen

== ENCOUNTER → 2017-06-26 | Outpatient (CLI) | payer OTHER ==
[~2017-06-26] MED LIST changes: +ATRINSX NEB; -CHOL100010 PO; +CHOL2000 PO; -FLM4 PO; -MISCTAB88 PO; -TYLER650 PO
--- NOTE | 2017-06-26 15:05 | DIAGNOSTIC IMAGING REPORT ---
CHEST 2 VIEWS ROUTINE HISTORY: Pneumonia. Follow-up. COMPARISON: Chest 06/08/2017. FINDINGS: Significantly improved aeration within the left lung. Small left pleural effusion and a few left basilar airspace opacities persist. Left rib deformities remain unchanged. No pneumothorax. The right lung is essentially clear. The heart is top normal in size. IMPRESSION: 1. Significant improved aeration within the left lung. 2. Small left pleural effusion and a few left basilar densities persist. This could represent atelectasis or a small amount of residual pneumonia. Additional one month chest x-ray follow up is recommended to ensure complete resolution. Electronically signed by: Narayan Gaines M.D. 06/26/2017 3:03 PM Dictated Date/Time: 06/26/2017 3:02 PM
== END | disposition home or self-care (01) ==
LOC: C.RAD1850 14:33
PROVIDERS: ATTEND Internal Medicine Pulmonary Disease
DX: J18.9 Pneumonia, unspecified organism (principal); J90 Pleural effusion, not elsewhere classified

== ENCOUNTER → 2017-09-28 | Day surgery (SDC) | payer OTHER ==
[2017-09-04 11:08] VITALS: Ht 181.6 cm; Wt 109.1 kg
--- NOTE | 2017-09-18 14:11 | PAT Medication Instructions ---
Service Date Sep 18, 2017. Current Home Medication List Bethanechol Chloride (Bethanechol Chloride), 100 MG PO BID Bimatoprost (Lumigan), 1 DROP OPB HS Cholecalciferol (Vitamin D3), 2,000 UNITS PO DAILY Gabapentin (Gabapentin), 600 MG PO TID Home O2 Therapy (Oxygen), 2 LITERS NA CONTINOUS Ipratropium-Albuterol (Combivent Respimat), 2 PUFFS INH QID PRN for SOB/Wheezing Levalbuterol HCl (Levalbuterol Hydrochlorid), 1 DOSE INH QAM Melatonin (Melatonin Maximum Strengt), 1 TAB PO HS Metoprolol Tartrate (Metoprolol Tartrate), 100 MG PO BID Mometasone Furoate-Formoterol (Dulera 200/5 Mcg), 2 PUFFS INH HS Montelukast Sod (Montelukast Sodium), 10 MG PO QPM Tamsulosin Hcl (Flomax), 0.4 MG PO QAM Trazodone Hcl (Trazodone), 50 MG PO HS Warfarin Sodium (Warfarin Sodium), 2 MG PO LUNCH [mucinex], 1 TAB PO PRN Medication Instructions For Your Scheduled Surgery - Check with surgeon and prescribing physician for instructions: Warfarin Sodium (Warfarin Sodium), 2 MG PO LUNCH - Check with surgeon for instructions: Bimatoprost (Lumigan), 1 DROP OPB HS - Hold the following medications the morning of surgery: Bethanechol Chloride (Bethanechol Chloride), 100 MG PO BID Cholecalciferol (Vitamin D3), 2,000 UNITS PO DAILY Tamsulosin Hcl (Flomax), 0.4 MG PO QAM [mucinex], 1 TAB PO PRN - Take the following medications the morning of surgery with a sip of water: Metoprolol Tartrate (Metoprolol Tartrate), 100 MG PO BID Ipratropium-Albuterol (Combivent Respimat), 2 PUFFS INH QID PRN for SOB/ Wheezing (if needed) Levalbuterol HCl (Levalbuterol Hydrochlorid), 1 DOSE INH QAM Home O2 Therapy (Oxygen), 2 LITERS NA CONTINOUS Gabapentin (Gabapentin), 600 MG PO TID - Take the following medications as scheduled the night before surgery: [mucinex], 1 TAB PO PRN Trazodone Hcl (Trazodone), 50 MG PO HS Montelukast Sod (Montelukast Sodium), 10 MG PO QPM Mometasone Furoate-Formoterol (Dulera 200/5 Mcg), 2 PUFFS INH HS Metoprolol Tartrate (Metoprolol Tartrate), 100 MG PO BID Melatonin (Melatonin Maximum Strengt), 1 TAB PO HS Ipratropium-Albuterol (Combivent Respimat), 2 PUFFS INH QID PRN for SOB/ Wheezing (if needed) Home O2 Therapy (Oxygen), 2 LITERS NA CONTINOUS Gabapentin (Gabapentin), 600 MG PO TID Bethanechol Chloride (Bethanechol Chloride), 100 MG PO BID If you have any questions please call us at [phone] or [phone] or [phone]
--- NOTE | 2017-09-18 14:43 | DIAGNOSTIC IMAGING REPORT ---
TWO VIEW CHEST CLINICAL HISTORY: Preoperative examination. FINDINGS: PA and lateral chest radiographs are compared to study dated 06/26/2017 and correlated with chest CT dated 06/08/2017. The PA view is degraded by patient rotation. The heart is enlarged and there is atherosclerotic calcification of the thoracic aorta. The pulmonary vasculature is noncongested. Consolidative changes again seen at the left lung base. The right lung appears clear. No pleural effusion is identified. There is no pneumothorax. The skeletal structures are osteopenic. Degenerative change is noted in the thoracic spine. There are healed right-sided rib fractures IMPRESSION: 1. Cardiomegaly without radiographic evidence of congestive failure. 2. Consolidative change is again seen at the left lung base. 3. The right lung appears clear. Electronically signed by: Sanford Loza M.D. 09/18/2017 2:41 PM Dictated Date/Time: 09/18/2017 2:40 PM
[2017-09-18 14:54] LABS: HEMATOCRIT 35.2 % (42-52); HEMOGLOBIN 11.8 g/dL (14.0-18.0); MEAN CELL VOLUME 92.1 fL (80-100); MEAN CORPUSCULAR HEMOGLOBIN 30.9 pg (25-34); MEAN CORPUSCULAR HGB CONC 33.5 g/dl (32-36); PLATELET COUNT 129 K/uL (130-400); RED CELL DISTRIBUTION WIDTH SD 50.3 fL (36.4-46.3); WHITE BLOOD COUNT 7.33 K/uL (4.8-10.8)
[2017-09-18 15:14] LABS: CALCIUM 8.6 mg/dl (8.5-10.1); CREATININE 1.42 mg/dl (0.60-1.40); POTASSIUM 3.7 mmol/L (3.5-5.1)
[~2017-09-28] VITALS: Ht 181.6 cm; Wt 109.1 kg
[~2017-09-28] MED LIST changes: +500ML BSS 0.3ML EPI 1:1000PF IRRIG ONE; +ACETAMINOPHEN 325 MG TAB PO PRN; +AMVISC PLUS 0.8ML SYRINGE INT OCU ONE; -ATRINSX NEB; +ATROPINE SULFATE 0.1 MG/ML 5ML SYR IV PRN; +BRIMONIDINE TART 0.2% OP SOLN PER DROP CHARGE ONE; +BSS FLUSH ONE; +ENDOCOAT 0.85ML SYRINGE INT OCU ONE; +EpHEDrine SULFATE INJ 50 MG/ML AMP IV PRN; +EpINEphrine INJ 1MG/ML AMP 1 MG/ML AMP ONE; +LACTATED RINGER'S 1000ML 500 ML IV SCH; +LIDOCAINE 4% OP SOLN DROP CHARGE ONE; +LIDOCAINE 4% OP SOLN DROP CHARGE OPL SCH; +LIDOCAINE HCL 1% MPF 2 ML VIAL ONE; +MELATAB2 PO; +MIDAZOLAM HCL 1 MG/ML 2ML VIAL ONE; +MIX: 3ML BSS AND 1ML EPI(PF) TOP ONE; +MOXIFLOXACIN OPH SOLN PER DROP CHARGE ONE; +OXGN; +POVIDONE-IODINE OP SOLN 30 ML BTL ONE; +PROPARACAINE 0.5% OP SOLN PER DROP CHARGE OPL SCH; +TAMS0.4C38 PO; +TOBRAMYCIN/DEXAMETHASONE OPH OINT PER APPLN CHARGE ONE; +[UNRECOGNIZED DRUG - CODE] INH; +mucinex PO
[2017-09-28] MEDS: PHENYLEPHRINE HCL 2.5% OP SOLN PER DROP CHARGE OPL SCH ×2 (10:17→10:23)
[2017-09-28] MEDS: TROPICAMIDE 1% OP SOLN PER DROP CHARGE OPL SCH ×2 (10:18→10:24)
[2017-09-28] MEDS: CYCLOPENTOLATE HCL 1% OP SOLN PER DROP CHARGE OPL SCH ×2 (10:19→10:25)
[2017-09-28] MEDS: KETOROLAC 0.5% OP SOLN PER DROP CHARGE OPL SCH ×2 (10:20→10:26)
--- NOTE | 2017-09-28 10:21 | History & Physical Bridge - SC ---
H&P Re-Evaluation Bridge Note: I have examined the patient, reviewed the History & Physical and in the interval since the performance of the History & Physical I have noted the following changes of clinical significance: No changes noted
[2017-09-28] MEDS: MOXIFLOXACIN OPH SOLN PER DROP CHARGE OPL SCH ×2 (10:22→10:32)
--- NOTE | 2017-09-28 12:15 | [facility] Operative Report ---
Operative Report Operative Date Sep 28, 2017. Pre-Operative Diagnosis Left eye cataract Post-Operative Diagnosis Same as preop Procedure(s) Performed Left Cataract Phacoemulsification With Intraocular Lens Implant Surgeon Dr. Rm [place] Crushing Machine Operator Surgeon(s) None Estimated Blood Loss 0 mL Findings cataract left eye Fluids see anesthesia record Specimens None Drains None Anesthesia Type MAC Complication(s) none Disposition no Recovery Room / PACU Indications decreased vision left eye Description of Procedure After informed consent was obtained in the holding area the patient was wheeled back to the operating room where cardiac monitoring leads and oxygen by nasal cannula was administered by Anesthesia. Gentle IV sedation was given, and the patient's left eye was prepped and draped in usual sterile fashion. A wire lid speculum was placed into the left eye and the operating microscope was swung into position. Using 0.12 forceps and a Supersharp blade a paracentesis port was made 3 o'clock hours away from the 3 o'clock position of the patient's left eye. 1% non-preserved Lidocaine was then injected into the anterior chamber for anesthesia. Flomax mix was injected into the eye to aid with IFIS. A 2.0 mm keratotome blade was then used to make a shelved clear corneal incision at the 3 o'clock position of the left eye. Amvisc was injected into the anterior chamber and a cystotome and Utrata forceps were used to perform a curvilinear capsulorrhexis. BSS on a hydrodissection cannula was used to hydrodissect the lens nucleus away from the capsular bag. The phacoemulsification handpiece was then used in a stop and chop fashion to remove the lens nucleus. The irrigation and aspiration handpiece was then used to remove the residual cortical material. Amvisc was injected into the capsular bag and anterior chamber and a Bausch [employer] Lomb MX60 20.0 Diopter intraocular lens was injected into the capsular bag. Irrigation and aspiration handpiece was used to remove the residual viscoelastic material. The wounds were hydrated and noted to be watertight. The wire lid speculum was removed from the eye. Vigamox, Brimonidine, and TobraDex ointment were placed on the eye and it was shielded. It should be noted that EndoCoat was used extensively during the case to protect the cornea endothelium. DISPOSITION: The patient tolerated the procedure well and was wheeled to the post anesthesia care unit in stable condition. I attest to the content of the Intraoperative Record and any orders documented therein. Any exceptions are noted below. I attest to the content of the Intraoperative Record and any orders documented therein. Any exceptions are noted below.
--- NOTE | 2017-09-28 12:16 | Discharge Instructions-SurgCtr ---
Discharge Instructions Date of Service Sep 28, 2017. Visit Reason for Visit: Left Cataract Discharge Discharge Diagnosis / Problem: cataract left eye Discharge Goals Goal(s): Improve function Activity Recommendations Activity Limitations: per Instructions/Follow-up section Lifting Limitations: no more than 5 pounds Anesthesia . Post Anesthesia Instructions: If you have had General Anesthesia or IV Sedation: * Do not drive today. * Resume driving when surgeon permits. * Do not make important decisions or sign legal documents today. * Call surgeon for: 1. Temperature elevations greater than 101 degrees F. 2. Uncontrollable pain. 3. Excessive bleeding. 4. Persistent nausea and vomiting. 5. Medication intolerance (nausea, vomiting or rash). * For nausea and vomiting use only clear liquids such as: tea, soda, bouillon until nausea subsides, then gradually increase diet as tolerated. * If you have any concerns or questions, call your surgeon's office. If physician is unavailable and it is an emergency, call 911 or go to the nearest emergency room. . Instructions / Follow-Up Instructions / Follow-Up ACTIVITY RECOMMENDATIONS: * Light activities * You may walk outside, read, watch television. * Mild irritation and blurred vision are common for the first few days, redness around the white part of the eye is common. MEDICATIONS: Resume previous medications unless instructed otherwise by your surgeon. Eye drops (today and tomorrow): Cipro - one drop in operative eye every 2 hours while awake Prednisolone 1% - one drop in operative eye every 2 hours while awake SPECIAL CARE INSTRUCTIONS: * If any problems or concerns, please call Dr. Rm's office at . * Keep plastic shield taped over eye to sleep at night. * Keep plastic shield taped over eye except to administer eye drops. * Keep plastic shield on until office visit the following day. FOLLOW UP VISIT: Follow-up with Dr. Rm in the [place] office as scheduled. If not already scheduled, please call the office at . Diet Recommendations Home Diet: resume previous diet Procedures Procedures Performed: Left Cataract Phacoemulsification With Intraocular Lens Implant Pending Studies Studies pending at discharge: no Medical Emergencies . Who to Call and When: Medical Emergencies: If at any time you feel your situation is an emergency, please call 911 immediately. . Non-Emergent Contact Non-Emergency issues call your: Division Manager . . "Provider Documentation" section prepared by Truong Rm. .
[2017-09-28 12:38] VITALS: BP 178/74; PULSE 83; TEMP 36.2; O2SAT 99
--- NOTE | 2017-09-28 12:44 | Anesthesia Progress Nt - [facility] ---
Anesthesia Post Op Note Date & Time Sep 28, 2017 at 12:44 Vital Signs Pain Intensity: 0 Vital Signs Past 12 Hours Date Time Temp Pulse Resp B/P (MAP) Pulse Ox O2 Delivery O2 Flow Rate FiO2 09/28/17 12:38 36.2 83 16 178/74 (108) 99 Nasal Cannula 2 09/28/17 12:18 36.2 85 16 169/95 (119) 96 Nasal Cannula 2 09/28/17 10:08 36.0 68 24 163/99 (120) 98 Nasal Cannula 2.5 Notes Mental Status: alert / awake / arousable, participated in evaluation Pt Amnestic to Procedure: Yes Nausea / Vomiting: adequately controlled Pain: adequately controlled Airway Patency, RR, SpO2: stable & adequate BP & HR: stable & adequate Hydration State: stable & adequate Anesthetic Complications: no major complications apparent
== END | disposition home or self-care (01) ==
LOC: X.SURG 09:52
PROVIDERS: ATTEND Ophthalmology
DX: H25.12 Age-related nuclear cataract, left eye (principal); J44.9 Chronic obstructive pulmonary disease, unspecified; I11.9 Hypertensive heart disease without heart failure; G62.9 Polyneuropathy, unspecified; H40.1130 Primary open-angle glaucoma, bilateral, stage unspecified; M19.90 Unspecified osteoarthritis, unspecified site; J45.909 Unspecified asthma, uncomplicated; I48.91 Unspecified atrial fibrillation; Z88.1 Allergy status to other antibiotic agents; Z99.81 Dependence on supplemental oxygen

== ENCOUNTER 2017-11-21 21:08 | Inpatient (IN) | payer OTHER ==
[~2017-11-21] VITALS: Ht 152.4 cm; Wt 108.4 kg
[~2017-11-21 21:08] MED LIST changes: -500ML BSS 0.3ML EPI 1:1000PF IRRIG ONE; -ACETAMINOPHEN 325 MG TAB PO PRN; -AMVISC PLUS 0.8ML SYRINGE INT OCU ONE; -ATROPINE SULFATE 0.1 MG/ML 5ML SYR IV PRN; -BRIMONIDINE TART 0.2% OP SOLN PER DROP CHARGE ONE; -BSS FLUSH ONE; -ENDOCOAT 0.85ML SYRINGE INT OCU ONE; -EpHEDrine SULFATE INJ 50 MG/ML AMP IV PRN; -EpINEphrine INJ 1MG/ML AMP 1 MG/ML AMP ONE; -IPRA1AER2 INH; -LACTATED RINGER'S 1000ML 500 ML IV SCH; -LIDOCAINE 4% OP SOLN DROP CHARGE ONE; -LIDOCAINE 4% OP SOLN DROP CHARGE OPL SCH; -LIDOCAINE HCL 1% MPF 2 ML VIAL ONE; -MIDAZOLAM HCL 1 MG/ML 2ML VIAL ONE; -MIX: 3ML BSS AND 1ML EPI(PF) TOP ONE; -MOXIFLOXACIN OPH SOLN PER DROP CHARGE ONE; -POVIDONE-IODINE OP SOLN 30 ML BTL ONE; -PROPARACAINE 0.5% OP SOLN PER DROP CHARGE OPL SCH; -TOBRAMYCIN/DEXAMETHASONE OPH OINT PER APPLN CHARGE ONE
--- NOTE | 2017-11-21 21:45 | DIAGNOSTIC IMAGING REPORT ---
CHEST ONE VIEW PORTABLE HISTORY: 77 years-old Male Chest Pain acute atypical chest pain COMPARISON: Chest radiograph 09/18/2017 TECHNIQUE: Portable AP view of the chest FINDINGS: Cardiac silhouette is again enlarged. Atherosclerosis of the aorta. No pneumothorax. Mild pulmonary vascular congestion. Small left pleural effusion with persistent left basilar consolidation. Bones of the chest appear grossly intact. IMPRESSION: 1. Cardiomegaly with mild pulmonary vascular congestion. 2. Small left pleural effusion with left basilar consolidation is unchanged. The above report was generated using voice recognition software. It may contain grammatical, syntax or spelling errors. Electronically signed by: Rober Rocha M.D. 11/21/2017 9:44 PM Dictated Date/Time: 11/21/2017 9:42 PM
--- NOTE | 2017-11-21 21:47 | EMERGENCY ROOM VISIT NOTE ---
History First contact with patient: 21:18 Chief Complaint: SHORTNESS OF BREATH Stated Complaint: OXYGEN LEVEL LOW History of Present Illness The patient is a 77 year old male who presents to the Emergency Room for evaluation of shortness of breath. Patient with history of lung disease, afib and previous pneumonia. He and have been living in their camper over the last week with worsening of breathing. Notes last 24 hours with fevers, weakness, fatigue, cough, and chills. He admits bloody sputum earlier without large clots. Denies syncope, cp, leg swelling, abdominal pain, back pain, nor other symptoms. Uses Oxygen at home with O2 sats in 70s and thus increased NC O2 prior to coming in. No history of heart failure. Notes history of left lower lung resection along with multiple rounds pneumonia in past. On Coumadin for Afib. History of COPD. No recent antibiotics. Took no medications prior to arrival. No sick contacts. Review of Systems See HPI for pertinent positives & negatives. A total of 10 systems reviewed and were otherwise negative. Past Medical/Surgical History Medical Problems: (1) ANTICOAGULANTS,LT,CURRENT USE (2) ATRIAL FIBRILLATION (3) Bacterial pneumonia (4) Bacterial pneumonia, unspecified (5) Benign essential hypertension (6) CHRONIC KIDNEY DISEASE, STAGE III (MODERATE) (7) COPD (chronic obstructive pulmonary disease) (8) Shortness of breath Family History Diabetes mellitus FHx: kidney disease Heart disease Hypertension Kidney stone Social History Smoking Status: Never Smoker Alcohol Use: none Drug Use: none Marital Status: Housing Status: lives with family Occupation Status: retired Current/Historical Medications Scheduled Bethanechol Chloride (Bethanechol Chloride), 50 MG PO BID Cholecalciferol (Vitamin D3), 2,000 UNITS PO DAILY Docusate Sodium (Stool Softener), 100 MG PO DAILY Gabapentin (Gabapentin), 600 MG PO TID Levalbuterol (Levalbuterol HCl), 1 DOSE INFIL Q8 Loteprednol Etabonate-Tobramyc (Zylet), 1 DROPS OPB QAM Melatonin (Melatonin Maximum Strengt), 1 TAB PO HS Metoprolol Tartrate (Metoprolol Tartrate), 100 MG PO BID Mometasone Furoate-Formoterol (Dulera 200/5 Mcg), 2 PUFFS INH HS Tamsulosin Hcl (Flomax), 0.4 MG PO DAILY Warfarin Sodium (Warfarin Sodium), 2 MG PO HELD TODAY Scheduled PRN Acetaminophen (Tylenol Arthritis Ext Rel), 1,300 MG PO DAILY PRN for Pain Guaifenesin Ext Rel (Mucinex Ext Rel), 600 MG PO Q12 PRN for CONGESTION Ipratropium-Albuterol (Combivent Respimat), 2 PUFFS INH QID PRN for SOB/Wheezing Trazodone Hcl (Trazodone), 50 MG PO HS PRN for Sleep Physical Exam Vital Signs Date Time Temp Pulse Resp B/P (MAP) Pulse Ox O2 Delivery O2 Flow Rate FiO2 11/22/17 02:23 86 20 172/105 98 Nasal Cannula 4.0 11/22/17 01:12 90 20 150/96 97 Nasal Cannula 4.0 11/21/17 23:37 97 22 177/95 99 Nasal Cannula 4.0 11/21/17 22:26 97 Nasal Cannula 4.0 11/21/17 22:25 89 22 166/90 97 Nasal Cannula 4.0 11/21/17 21:46 106 11/21/17 21:34 Room Air 11/21/17 21:13 36.6 102 22 155/84 95 Nasal Cannula 3.5 Physical Exam GENERAL: Patient is chronically unwell appearing and in mild distress. EYES: No scleral icterus, unremarkable pupils. ENT: Mucous membranes moist, no nasal congestion. NECK: No masses appreciated, no meningismus, trachea is midline. RESPIRATORY: Dyspnea/Tachypnea, no wheezing, crackles bilateral, decreased LLL. CARDIAC: Afib. No murmurs, rubs, gallops appreciated. GASTROINTESTINAL: Abdomen soft, nontender, no peritonitis. Bowel sounds positive. No masses appreciated. BACK: No midline tenderness, no CVA tenderness EXTREMITIES: Normal motion all extremities, no cyanosis, no edema. NEUROLOGIC: Alert and oriented, no acute motor or sensory deficits, no focal weakness, cranial nerves grossly intact. SKIN: No rash, no jaundice, no diaphoresis. Medical Decision & Procedures Laboratory Results Test 11/21/17 21:33 11/21/17 21:40 Immature Granulocyte % (Auto) 0.3 % White Blood Count 12.42 K/uL (4.8-10.8) Red Blood Count 3.74 M/uL (4.7-6.1) Hemoglobin 11.4 g/dL (14.0-18.0) Hematocrit 34.0 % (42-52) Mean Corpuscular Volume 90.9 fL (80-100) Mean Corpuscular Hemoglobin 30.5 pg (25-34) Mean Corpuscular Hemoglobin Concent 33.5 g/dl (32-36) Platelet Count 125 K/uL (130-400) Mean Platelet Volume 10.3 fL (7.4-10.4) Neutrophils (%) (Auto) 84.8 % Lymphocytes (%) (Auto) 8.8 % Monocytes (%) (Auto) 5.6 % Eosinophils (%) (Auto) 0.2 % Basophils (%) (Auto) 0.3 % Neutrophils # (Auto) 10.53 K/uL (1.4-6.5) Lymphocytes # (Auto) 1.09 K/uL (1.2-3.4) Monocytes # (Auto) 0.70 K/uL (0.11-0.59) Eosinophils # (Auto) 0.02 K/uL (0-0.5) Basophils # (Auto) 0.04 K/uL (0-0.2) Immature Granulocyte # (Auto) 0.04 K/uL (0.00-0.02) Activated Partial Thromboplast Time 37.1 SECONDS (21.0-31.0) Partial Thromboplastin Ratio 1.4 Total Creatine Kinase 83 U/L (39-308) Creatine Kinase MB 1.6 ng/ml (0.5-3.6) Creatine Kinase MB Ratio 1.9 (0-3.0) Troponin I < 0.015 ng/ml (0-0.045) Pro-B-Type Natriuretic Peptide 24845 pg/ml (0-1800) Procalcitonin 0.21 ng/ml (0-0.5) Bedside Lactic Acid Venous 1.30 mmol/L (0.90-1.70) Medications Administered Medications (Trade) Dose Ordered Sig/Prem Route Start Time Stop Time Status Last Admin Dose Admin Furosemide (Lasix Inj) 20 mg NOW STAT IV 11/21/17 22:47 11/21/17 22:48 DC 11/21/17 23:19 20 MG Albuterol Sulfate (Ventolin 0.083% 2.5MG/3ML Neb) 2.5 mg NOW STAT INH 11/21/17 23:33 11/21/17 23:56 DC 11/22/17 00:33 2.5 MG ECG Per My Interpretation Indication: SOB/dyspnea Rate (beats per minute): 96 Rhythm: atrial fibrillation Findings: ST depression (Lateral) Comparison ECG Date: Change: no significant change Medical Decision 77 yr old male arrives from home for evaluation of difficulty breathing. Patient with increased oxygen requirement. He appears in CHF, has CXR consistent with this, and has BNP that is significantly higher than previous. He has no fever, only mild WBC elevation, no clear evidence infiltrate, normal LA and patient stable. Requiring increased NC O2, and thus I feel likely needs to come in. I did obtain blood cultures given his history though will hold on abx at this time. Will give small dose lasix IV to see how that responds. Cr is right around his baseline level as it is. INR therapeutic thus I do not feel that requires CT PE. May be some CHF that in cough is bloody given his Coumadin use though obviously this will need to be monitored closely. Patient stable on recheck and CT Hospitalist Dr Russo consulted to evaluate patient. Medication Reconcilliation Current Medication List: was personally reviewed by me Blood Pressure Screening Patient's blood pressure: Elevated blood pressure Will be managed by Hospitalist. Impression Primary Impression: Congestive heart failure Additional Impression: Hypoxia Departure Information Referrals Luis Colmenares M.D. (PCP) Patient Instructions My [facility] Health Problem Qualifiers
[2017-11-21 21:53] LABS: BASO % 0.3 %; BASO ABS # 0.04 K/uL (0-0.2); EOS % 0.2 %; EOS ABS # 0.02 K/uL (0-0.5); HEMOGLOBIN 11.4 g/dL (14.0-18.0); IG# 0.04 K/uL (0.00-0.02); LYMPH % 8.8 %; LYMPH ABS # 1.09 K/uL (1.2-3.4); MEAN CELL VOLUME 90.9 fL (80-100); MEAN CORPUSCULAR HEMOGLOBIN 30.5 pg (25-34); MEAN CORPUSCULAR HGB CONC 33.5 g/dl (32-36); MEAN PLATELET VOLUME 10.3 fL (7.4-10.4); MONO % 5.6 %; NEUT % 84.8 %; NEUT ABS # 10.53 K/uL (1.4-6.5); PLATELET COUNT 125 K/uL (130-400); RED CELL DISTRIBUTION WIDTH CV 15.1 % (11.5-14.5); WHITE BLOOD COUNT 12.42 K/uL (4.8-10.8)
[2017-11-21] MEDS ORDERED: DOCU100C PO (22:03)
[2017-11-21] MEDS ORDERED: GUAI1TAB55 PO (22:03)
[2017-11-21] MEDS ORDERED: XPNINS125 INFIL (22:03)
[2017-11-21 22:04] LABS: INR 3.1 (0.9-1.1); PTT PATIENT 37.1 SECONDS (21.0-31.0)
[2017-11-21] MEDS ORDERED: ACET1TAB84 PO (22:04)
[2017-11-21] MEDS ORDERED: [UNRECOGNIZED DRUG - CODE] OPB (22:09)
[2017-11-21 22:10] LABS: BLOOD UREA NITROGEN 11 mg/dl (7-18); CALCIUM 8.2 mg/dl (8.5-10.1); CARBON DIOXIDE 28 mmol/L (21-32); CREATININE 1.69 mg/dl (0.60-1.40); GLUCOSE 178 mg/dl (70-99); POTASSIUM 3.8 mmol/L (3.5-5.1); SODIUM 140 mmol/L (136-145)
[2017-11-21 22:15] LABS: CKMB 1.6 ng/ml (0.5-3.6)
[2017-11-21] MEDS ORDERED: IPRA1AER2 INH (22:28)
[2017-11-21] MEDS ORDERED: FUROSEMIDE 40 MG/4 ML VIAL IV STA (22:47)
[2017-11-21] MEDS ORDERED: ALBUTEROL 0.083% NEBU SOLN 3 ML VIAL INH STA (23:33)
[2017-11-21] MEDS ORDERED: TRAZODONE HCL 50 MG TAB PO PRN (23:45)
[2017-11-21] MEDS ORDERED: ONDANSETRON INJ 2 MG/ML 2 ML VIAL IV PRN (23:45)
[2017-11-21] MEDS ORDERED: GUAIFENESIN 600 MG TABCR PO PRN (23:45)
[2017-11-21] MEDS ORDERED: ACETAMINOPHEN 325 MG TAB PO PRN (23:45)
[2017-11-21] MEDS ORDERED: IPRATROPIUM BROMIDE/ALBUTEROL respimat INH INH PRN (23:45)
[2017-11-22] VITALS (11 sets, daily range): BP systolic 120–189; BP diastolic 67–105; PULSE 58–101; TEMP 36.5–36.8; O2SAT 92–98; Ht 152.4 cm; Wt 108.4 kg
[2017-11-22] MEDS ORDERED: PATIENT'S HEIGHT AND/OR WEIGHT NEEDED SCH ×2 (00:30→01:15)
--- NOTE | 2017-11-22 02:59 | History and Physical ---
History & Physical Date & Time of Service: November 22, 2017 at 02:40 Chief Complaint: Oxygen Level Low Primary Care Physician: Luis Colmenares M.D. History of Present Illness Patient is a 77yo male with history of COPD on 2L home O2, AF on anticoagulation presenting with 1 day of progressive shortness of breath. Patient also reports some orthopnea and a cough that was initially dry but had an episode of hemoptysis. Patient reports subjective fevers, chills and sweats x 1 day as well as generalized weakness and fatigue. Family reports oxygen saturation in the 70's earlier tonight that resolved with increasing the oxygen to 2.5 liters. No additional complaints. On arrival to the ER he was afebrile, slightly tachycardic at 106bpm, hypertensive 166/90, RR of 22 and 97% on 4L ER: Lasix 20mg Past Medical/Surgical History Medical Problems: 1. Atrial fibrillation 2. Hypertension 3. CKD - Stage III 4. COPD 5. 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 Hernia repair x 5 Cataract Family History Diabetes mellitus FHx: kidney disease Heart disease Hypertension Kidney stone Social History Smoking Status: Never Smoker Alcohol Use: none Drug Use: none Marital Status: Housing status: lives with family Occupational Status: retired Immunizations History of Influenza Vaccine: Unknown Influenza Vaccine Date: Apr 22, 2011 History of Tetanus Vaccine?: Unknown History of Pneumococcal: Unknown Pneumococcal Date: Jul 22, 2007 History of Hepatitis B Vaccine: Unknown Allergies Coded Allergies: Ciprofloxacin (Verified Adverse Reaction, Unknown, GI UPSET, 09/04/17) Home Medications Scheduled Bethanechol Chloride (Bethanechol Chloride), 50 MG PO BID Cholecalciferol (Vitamin D3), 2,000 UNITS PO DAILY Docusate Sodium (Stool Softener), 100 MG PO DAILY Gabapentin (Gabapentin), 600 MG PO TID Levalbuterol (Levalbuterol HCl), 1 DOSE INFIL Q8 Loteprednol Etabonate-Tobramyc (Zylet), 1 DROPS OPB QAM Melatonin (Melatonin Maximum Strengt), 1 TAB PO HS Metoprolol Tartrate (Metoprolol Tartrate), 100 MG PO BID Mometasone Furoate-Formoterol (Dulera 200/5 Mcg), 2 PUFFS INH HS Tamsulosin Hcl (Flomax), 0.4 MG PO DAILY Warfarin Sodium (Warfarin Sodium), 2 MG PO HELD TODAY Scheduled PRN Acetaminophen (Tylenol Arthritis Ext Rel), 1,300 MG PO DAILY PRN for Pain Guaifenesin Ext Rel (Mucinex Ext Rel), 600 MG PO Q12 PRN for CONGESTION Ipratropium-Albuterol (Combivent Respimat), 2 PUFFS INH QID PRN for SOB/Wheezing Trazodone Hcl (Trazodone), 50 MG PO HS PRN for Sleep Review of Systems Constitutional: + fever, + chills, + sweats Eyes: No worsening of vision, No diplopia ENT: No hearing loss, No sore throat, No trouble swallowing Respiratory: + cough, + sputum, + shortness of breath, + dyspnea on exertion, + hemoptysis, No wheezing Cardiovascular: No chest pain, No edema, No palpitations Abdomen: + pain, + nausea, + vomiting, + diarrhea, + constipation Musculoskeletal: + joint pain, + muscle pain Genitourinary - Male: + hematuria, + dysuria Neurologic: + weakness Endocrine: + fatigue Hematologic / Lymphatic: No abnormal bleeding/bruising, No clotting problems Integumentary: No rash, No itch Physical Exam Vital Signs Date Time Temp Pulse Resp B/P (MAP) Pulse Ox O2 Delivery O2 Flow Rate FiO2 11/22/17 02:23 86 20 172/105 98 Nasal Cannula 4.0 11/22/17 01:12 90 20 150/96 97 Nasal Cannula 4.0 11/21/17 23:37 97 22 177/95 99 Nasal Cannula 4.0 11/21/17 22:26 97 Nasal Cannula 4.0 11/21/17 22:25 89 22 166/90 97 Nasal Cannula 4.0 11/21/17 21:46 106 11/21/17 21:34 Room Air 11/21/17 21:13 36.6 102 22 155/84 95 Nasal Cannula 3.5 General Appearance: WD/WN, no apparent distress Head: normocephalic, atraumatic Eyes: normal inspection, EOMI, sclerae normal ENT: hearing grossly normal, pharynx normal Neck: supple, no adenopathy, thyroid normal, no JVD, no carotid bruits, trachea midline Respiratory/Chest: chest non-tender, no respiratory distress, no accessory muscle use, + pertinent finding (+crackles in right lung, no wheezing appreciated) Cardiovascular: no edema, no gallop, no murmur, + abnormal rhythm (irregularly irregular) Abdomen/GI: normal bowel sounds, non tender, soft, no organomegaly Back: normal inspection, no CVA tenderness Skin: normal color, warm/dry, no rash Diagnostics Laboratory Results Results Past 24 Hours Test 11/21/17 21:33 11/21/17 21:40 Range/Units White Blood Count 12.42 4.8-10.8 K/uL Red Blood Count 3.74 4.7-6.1 M/uL Hemoglobin 11.4 14.0-18.0 g/dL Hematocrit 34.0 42-52 % Mean Corpuscular Volume 90.9 80-100 fL Mean Corpuscular Hemoglobin 30.5 25-34 pg Mean Corpuscular Hemoglobin Concent 33.5 32-36 g/dl Platelet Count 125 130-400 K/uL Mean Platelet Volume 10.3 7.4-10.4 fL Neutrophils (%) (Auto) 84.8 % Lymphocytes (%) (Auto) 8.8 % Monocytes (%) (Auto) 5.6 % Eosinophils (%) (Auto) 0.2 % Basophils (%) (Auto) 0.3 % Neutrophils # (Auto) 10.53 1.4-6.5 K/uL Lymphocytes # (Auto) 1.09 1.2-3.4 K/uL Monocytes # (Auto) 0.70 0.11-0.59 K/uL Eosinophils # (Auto) 0.02 0-0.5 K/uL Basophils # (Auto) 0.04 0-0.2 K/uL RDW Standard Deviation 50.0 36.4-46.3 fL RDW Coefficient of Variation 15.1 11.5-14.5 % Immature Granulocyte % (Auto) 0.3 % Immature Granulocyte # (Auto) 0.04 0.00-0.02 K/uL Prothrombin Time 31.6 9.0-12.0 SECONDS Prothromb Time International Ratio 3.1 0.9-1.1 Activated Partial Thromboplast Time 37.1 21.0-31.0 SECONDS Partial Thromboplastin Ratio 1.4 Sodium Level 140 136-145 mmol/L Potassium Level 3.8 3.5-5.1 mmol/L Chloride Level 106 98-107 mmol/L Carbon Dioxide Level 28 21-32 mmol/L Anion Gap 6.0 3-11 mmol/L Blood Urea Nitrogen 11 7-18 mg/dl Creatinine 1.69 0.60-1.40 mg/dl Estimated GFR () 43.8 Estimated GFR (Non- 37.8 BUN/Creatinine Ratio 6.6 10-20 Random Glucose 178 70-99 mg/dl Calcium Level 8.2 8.5-10.1 mg/dl Magnesium Level 1.8 1.8-2.4 mg/dl Total Creatine Kinase 83 39-308 U/L Creatine Kinase MB 1.6 0.5-3.6 ng/ml Creatine Kinase MB Ratio 1.9 0-3.0 Troponin I < 0.015 0-0.045 ng/ml Pro-B-Type Natriuretic Peptide 85683 0-1800 pg/ml Procalcitonin 0.21 0-0.5 ng/ml Bedside Lactic Acid Venous 1.30 0.90-1.70 mmol/L Microbiology Results 11/21/17 Blood Culture, Received Pending 11/21/17 Blood Culture, Received Pending Diagnostic Radiology CHEST ONE VIEW PORTABLE HISTORY: 77 years-old Male Chest Pain acute atypical chest pain COMPARISON: Chest radiograph 09/18/2017 TECHNIQUE: Portable AP view of the chest FINDINGS: Cardiac silhouette is again enlarged. Atherosclerosis of the aorta. No pneumothorax. Mild pulmonary vascular congestion. Small left pleural effusion with persistent left basilar consolidation. Bones of the chest appear grossly intact. IMPRESSION: 1. Cardiomegaly with mild pulmonary vascular congestion. 2. Small left pleural effusion with left basilar consolidation is unchanged. Impression Assessment and Plan 77yo male presenting with 1 day of progressive shortness of breath 1. SOB - adequate oxygenation onf 2L at present, no respiratory distress. No overt evidence of cardiac volume overload. Concern for early PNA vs CHF, less likely COPD as patient not presently wheezing -Cefrtriaxone and Azithromycin -Guaifenasin PRN -Duonebs q 4 hours PRN -Combivent -Check 2D echocardiogram -Daily weights, I/Os 2. Afib - rate controlled, anticoagulated on Coumadin with INR=3.1 -Hold Coumadin in setting of hemoptysis -Continue Metoprolol -INR in AM 3. Hypertension - 166/90 -Continue Metoprolol 100mg po BID -Labetalol PRN 4. CKD - -Continue to monitor -Renal dosing where appropriate -Avoid nephrotoxic agents 5. COPD - -Supplemental O2 at home level -Nebs PRN -Combivent 6. F/E/N - Heplock, monitor electrolytes, diet as tolerated 7. Ppx - Lovenox for DVT 8. Code - DNR per discussion with patient 9. Admit to telemetry Resuscitation Status VTE Prophylaxis Will order VTE Prophylaxis: Yes
[2017-11-22] MEDS: ALBUT/IPRATROP 3MG/0.5MG NEB 3 ML VIAL INH SCH ×6 (03:01→23:10)
[2017-11-22] MEDS: AZITHROMYCIN IV 500 MG in DEXTROSE 5% 250ML 250 ML IV SCH (04:28)
[2017-11-22] MEDS: CEFTRIAXONE SOD INJ 1 GM in DEXTROSE 5% ADD-VANTAGE 50ML 50 ML IV SCH (05:32)
[2017-11-22] MEDS: METOPROLOL TARTRATE 100 MG TAB PO SCH ×2 (05:33→21:19)
[2017-11-22] MEDS: DULERA~ORDER AWAITING ACTION SCH ×2 (07:46→14:57)
[2017-11-22] MEDS: GABAPENTIN 600 MG TAB PO SCH ×3 (08:20→21:21)
[2017-11-22] MEDS: TAMSULOSIN HCL 0.4 MG CAP PO SCH (08:20)
[2017-11-22] MEDS: BETHANECHOL CHL 25 MG TAB PO SCH ×2 (08:21→21:21)
[2017-11-22] MEDS ORDERED: NURSING VERBAL MED ORDER ONE (08:30)
[2017-11-22 08:42] LABS: HEMATOCRIT 34.2 % (42-52); HEMOGLOBIN 11.3 g/dL (14.0-18.0); MEAN CELL VOLUME 91.2 fL (80-100); MEAN CORPUSCULAR HEMOGLOBIN 30.1 pg (25-34); MEAN PLATELET VOLUME 9.1 fL (7.4-10.4); PLATELET COUNT 104 K/uL (130-400); RED CELL DISTRIBUTION WIDTH CV 15.1 % (11.5-14.5); RED CELL DISTRIBUTION WIDTH SD 50.4 fL (36.4-46.3); WHITE BLOOD COUNT 8.61 K/uL (4.8-10.8)
[2017-11-22 08:49] LABS: INR 2.5 (0.9-1.1)
[2017-11-22] MEDS ORDERED: ENOXAPARIN 30 MG/0.3 ML SYR SC SCH (09:00)
[2017-11-22] MEDS ORDERED: DOCUSATE SODIUM 100 MG CAP PO SCH (09:00)
[2017-11-22 09:09] LABS: CALCIUM 8.4 mg/dl (8.5-10.1); CREATININE 1.57 mg/dl (0.60-1.40); POTASSIUM 3.4 mmol/L (3.5-5.1)
[2017-11-22] MEDS ORDERED: POTASSIUM CHLORIDE 20 MEQ TABCR PO ONE (09:30)
--- NOTE | 2017-11-22 09:48 | DIAGNOSTIC IMAGING REPORT ---
CHEST 2 VIEWS ROUTINE HISTORY: shortness of breath COMPARISON: Chest 11/21/2017. FINDINGS: The heart remains mildly enlarged. No pneumothorax. Small bilateral pleural effusions have slightly progressed. Chronic left basilar opacities are again noted. Patchy densities within the right upper lobe remain unchanged. Mild interstitial and vascular thickening also persists. IMPRESSION: 1. No change in the interstitial thickening and small bilateral pleural effusions. This favors mild pulmonary edema. 2. There are also patchy airspace opacities within the right upper lobe which may represent a superimposed pneumonia or a component of the pulmonary edema. Recommend continued follow-up to ensure resolution. 3. Stable chronic left basilar airspace opacity. Electronically signed by: Narayan Gaines M.D. 11/22/2017 9:47 AM Dictated Date/Time: 11/22/2017 9:45 AM
[2017-11-22] MEDS: LABETALOL HCL IV 5 MG/ML 20ML IV PRN (12:24)
--- NOTE | 2017-11-22 12:31 | ECHOCARDIOGRAM REPORT ---
*NOTICE TO RECEIVING CONSTITUTION PARTY AGENCY This information is strictly Confidential and protected under [place] law. [place] law prohibits you from making any further disclosure of this information unless further disclosure is expressly permitted by the written consent of the person to whom it pertains or is authorized by law. A general authorization for the release of medical or other information is not sufficient for this purpose. Hospital accepts no responsibility if the information is made available to any other person, INCLUDING THE PATIENT. Interpretation Summary * Name: FATOUMATA CASTELLANOS Study Date: 11/22/2017 07:18 AM BP: 149/89 mmHg * Patient Location: C.2T\S\S229\S\1 HR: 82 * : 1940 (M/d/yyy) Gender: Male Height: 72 in * Age: 77 yrs Ethnicity: CA Weight: 240 lb * Ordering Physician: Meenakshi Russo * Referring Physician: Self, Referred * Performed By: Charlotte Hawthorne RDCS * * Reason For Study: CHF * BSA: 2.3 m2 * -- Conclusions -- * There is mild concentric left ventricular hypertrophy. * Ejection Fraction = 60-65%. * Mild aortic regurgitation. * There is mild to moderate mitral regurgitation. * Right ventricular systolic pressure is normal. * Borderline aortic root dilatation. * Compared to an echocardiogram from 2015, there has been development of some mild aortic and mitral regurgitation. Procedure Details * A complete two-dimensional transthoracic echocardiogram was performed (2D, M-mode, Doppler and color flow Doppler). * A contrast injection of Definity was performed to improve assessment of LV function. * Contrast was injected into an intravenous site in the right arm. * One vial of Definity ultrasound contrast was diluted in normal saline to a total volume of 10 ml. A total of '1' ml of solution was administered during imaging. * Lot # [id number] of Definity utilized for procedure. * Expiration date 1 AUG 31. * The attending nurse who injected the contrast agent was Bryn Akhtar RN. Left Ventricle * The left ventricle is normal in size. * There is mild concentric left ventricular hypertrophy. * Ejection Fraction = 60-65%. * Left ventricular systolic function is normal. * There is some mild basal inferior hypokinesis Right Ventricle * The right ventricle is normal in size and function. Atria * The left atrial size is normal. * Right atrial size is normal. Mitral Valve * The mitral valve is grossly normal. * There is no mitral valve stenosis. * There is mild to moderate mitral regurgitation. Tricuspid Valve * The tricuspid valve is not well visualized, but is grossly normal. * There is trace tricuspid regurgitation. * Right ventricular systolic pressure is normal. Aortic Valve * The aortic valve is normal in structure and function. * No hemodynamically significant valvular aortic stenosis. * Mild aortic regurgitation. Pulmonic Valve * The pulmonic valve is not well seen, but is grossly normal. Great Vessels * Borderline aortic root dilatation. Pericardium/Pleural * There is no pericardial effusion. MMode 2D Measurements and Calculations IVSd 1.3 cm LVIDd 4.2 cm LVIDs 2.7 cm LVPWd 1.4 cm IVS/LVPW 0.88 FS 36.2 % EDV(Teich) 80.5 ml ESV(Teich) 27.2 ml EF(Teich) 66.2 % EDV(cubed) 76.4 ml ESV(cubed) 19.9 ml EF(cubed) 74.0 % LV mass(C)d 215.3 grams LV mass(C)dI 93.5 grams/m\S\2 SV(Teich) 53.3 ml SI(Teich) 23.2 ml/m\S\2 SV(cubed) 56.6 ml SI(cubed) 24.6 ml/m\S\2 Ao root diam 3.9 cm Ao root area 12.2 cm\S\2 ACS 1.7 cm LA dimension 3.7 cm asc Aorta Diam 3.1 cm LA/Ao 0.95 LVOT diam 2.0 cm LVOT area 3.2 cm\S\2 LVAd ap4 30.6 cm\S\2 LVLd ap4 7.6 cm EDV(MOD-sp4) 100.5 ml EDV(sp4-el) 104.1 ml LVAs ap4 17.2 cm\S\2 LVLs ap4 6.4 cm ESV(MOD-sp4) 39.1 ml ESV(sp4-el) 39.4 ml EF(MOD-sp4) 61.1 % EF(sp4-el) 62.2 % LVAd ap2 21.5 cm\S\2 LVLd ap2 6.7 cm EDV(MOD-sp2) 57.4 ml EDV(sp2-el) 58.7 ml LVAs ap2 12.7 cm\S\2 LVLs ap2 6.2 cm ESV(MOD-sp2) 21.6 ml ESV(sp2-el) 21.9 ml EF(MOD-sp2) 62.4 % EF(sp2-el) 62.7 % LVLd %diff -14.03 % EDV(MOD-bp) 81.3 ml LVLs %diff -3.30 % ESV(MOD-bp) 28.4 ml EF(MOD-bp) 65.1 % SV(MOD-sp4) 61.4 ml SI(MOD-sp4) 26.7 ml/m\S\2 SV(MOD-sp2) 35.8 ml SI(MOD-sp2) 15.6 ml/m\S\2 SV(MOD-bp) 52.9 ml SI(MOD-bp) 23.0 ml/m\S\2 SV(sp4-el) 64.7 ml SI(sp4-el) 28.1 ml/m\S\2 SV(sp2-el) 36.8 ml SI(sp2-el) 16.0 ml/m\S\2 Doppler Measurements and Calculations MV E max mary kay 112.8 cm/sec MV dec time 0.21 sec Ao V2 max 101.4 cm/sec Ao max PG 4.1 mmHg Ao max PG (full) 1.9 mmHg KELBY(V,A) 2.4 cm\S\2 KELBY(V,D) 2.4 cm\S\2 AI max mary kay 416.8 cm/sec AI max PG 69.5 mmHg AI dec slope 222.5 cm/sec\S\2 AI P1/2t 548.7 msec LV V1 max PG 2.3 mmHg LV V1 max 75.2 cm/sec MR max mary kay 611.5 cm/sec MR max PG 149.6 mmHg MR mean mary kay 450.4 cm/sec MR mean PG 94.2 mmHg MR VTI 200.2 cm PA V2 max 65.6 cm/sec PA max PG 1.7 mmHg PA acc slope 424.3 cm/sec\S\2 PA acc time 0.13 sec TR max mary kay 196.7 cm/sec PA pr(Accel) 20.7 mmHg
[2017-11-22] MEDS ORDERED: FUROSEMIDE INJ 20 MG in SYRINGE 0 ML IV ONE (12:45)
[2017-11-22] MEDS ORDERED: WARFARIN SOD 2 MG TAB PO ONE (16:12)
[2017-11-22] MEDS ORDERED: LISINOPRIL 5 MG TAB PO ONE (16:15)
--- NOTE | 2017-11-22 16:23 | Progress Note ---
Subjective Date of Service: November 22, 2017. Subjective Pt evaluation today including: conversation w/ patient, physical exam, chart review, lab review, review of studies (cxr, echo), review of inpatient medication list Pain: denies PO Intake: normal eating today Voiding: no voiding problems pt c/o dysphagia for solids; present for weeks, perhaps months no dysphagia for liquids has trouble w/ pills, bread, etc has had hoarse voice for a few days asks if his trouble swallowing "has anything to do with my breathing" overall feels much better than yesterday outpatient office records reviewed - saw Dr. Padilla in October (first week of October ); patient was asked to take his dulara TWICE A DAY rather than daily; there had been some discussion about bronch because of a chronic LLL infiltrate; this region was where he had a thoracotomy years ago for a benign lesion Problem List Medical Problems: (1) Acute respiratory failure with hypoxia Status: Acute (2) Atrial fibrillation with RVR Status: Acute (3) Congestive heart failure Status: Acute (4) Heart failure Status: Acute (5) Hypoxia Status: Acute (6) Left lower lobe pneumonia Status: Acute (7) Pneumonia involving left lung Status: Acute Review of Systems Constitutional: + weight loss (20-30 pounds since July this year - states it is intentional - "I just don't eat" ), No fever, No chills Respiratory: + cough, + wheezing, + dyspnea on exertion Cardiac: No chest pain Abdomen: No pain Objective Vital Signs Date Time Temp Pulse Resp B/P (MAP) Pulse Ox O2 Delivery O2 Flow Rate FiO2 11/22/17 15:17 36.6 90 22 164/90 (114) 97 Room Air 11/22/17 15:03 60 16 98 Nasal Cannula 2.0 11/22/17 12:00 Nasal Cannula 4.0 11/22/17 12:00 36.7 97 18 177/92 (120) 96 11/22/17 11:02 58 16 98 Room Air 11/22/17 08:00 Nasal Cannula 4.0 11/22/17 07:01 85 16 98 Nasal Cannula 4.0 11/22/17 06:10 36.6 82 19 149/89 (109) 97 Nasal Cannula 4.0 11/22/17 04:00 Nasal Cannula 4.0 11/22/17 03:45 36.6 82 16 189/105 Nasal Cannula 4.0 11/22/17 03:17 88 16 186/105 95 11/22/17 02:23 86 20 172/105 98 Nasal Cannula 4.0 11/22/17 01:12 90 20 150/96 97 Nasal Cannula 4.0 11/21/17 23:37 97 22 177/95 99 Nasal Cannula 4.0 11/21/17 22:26 97 Nasal Cannula 4.0 11/21/17 22:25 89 22 166/90 97 Nasal Cannula 4.0 11/21/17 21:46 106 11/21/17 21:34 Room Air 11/21/17 21:13 36.6 102 22 155/84 95 Nasal Cannula 3.5 Physical Exam General Appearance: no apparent distress ENT: pharynx normal Neck: no JVD Respiratory/Chest: no respiratory distress, no accessory muscle use, + decreased breath sounds (left base), + wheezing (left lung, no wheezing on right ), + pertinent finding (no rales in any lobe) Cardiovascular: no gallop, no murmur, + irregularly irregular Abdomen: normal bowel sounds, non tender, soft, no organomegaly Extremities: no pedal edema Neurologic/Psychiatric: alert, oriented x 3 Laboratory Results Last 24 Hours Test 11/21/17 21:33 11/21/17 21:40 11/22/17 08:21 White Blood Count 12.42 K/uL 8.61 K/uL Red Blood Count 3.74 M/uL 3.75 M/uL Hemoglobin 11.4 g/dL 11.3 g/dL Hematocrit 34.0 % 34.2 % Mean Corpuscular Volume 90.9 fL 91.2 fL Mean Corpuscular Hemoglobin 30.5 pg 30.1 pg Mean Corpuscular Hemoglobin Concent 33.5 g/dl 33.0 g/dl Platelet Count 125 K/uL 104 K/uL Mean Platelet Volume 10.3 fL 9.1 fL Neutrophils (%) (Auto) 84.8 % Lymphocytes (%) (Auto) 8.8 % Monocytes (%) (Auto) 5.6 % Eosinophils (%) (Auto) 0.2 % Basophils (%) (Auto) 0.3 % Neutrophils # (Auto) 10.53 K/uL Lymphocytes # (Auto) 1.09 K/uL Monocytes # (Auto) 0.70 K/uL Eosinophils # (Auto) 0.02 K/uL Basophils # (Auto) 0.04 K/uL RDW Standard Deviation 50.0 fL 50.4 fL RDW Coefficient of Variation 15.1 % 15.1 % Immature Granulocyte % (Auto) 0.3 % Immature Granulocyte # (Auto) 0.04 K/uL Prothrombin Time 31.6 SECONDS 25.3 SECONDS Prothromb Time International Ratio 3.1 2.5 Activated Partial Thromboplast Time 37.1 SECONDS Partial Thromboplastin Ratio 1.4 Sodium Level 140 mmol/L 140 mmol/L Potassium Level 3.8 mmol/L 3.4 mmol/L Chloride Level 106 mmol/L 102 mmol/L Carbon Dioxide Level 28 mmol/L 35 mmol/L Anion Gap 6.0 mmol/L 3.0 mmol/L Blood Urea Nitrogen 11 mg/dl 11 mg/dl Creatinine 1.69 mg/dl 1.57 mg/dl Estimated GFR () 43.8 47.9 Estimated GFR (Non- 37.8 41.3 BUN/Creatinine Ratio 6.6 6.9 Random Glucose 178 mg/dl 133 mg/dl Calcium Level 8.2 mg/dl 8.4 mg/dl Magnesium Level 1.8 mg/dl 1.8 mg/dl Total Creatine Kinase 83 U/L Creatine Kinase MB 1.6 ng/ml Creatine Kinase MB Ratio 1.9 Troponin I < 0.015 ng/ml Pro-B-Type Natriuretic Peptide 43489 pg/ml Procalcitonin 0.21 ng/ml Bedside Lactic Acid Venous 1.30 mmol/L Est Creatinine Clear Calc Drug Dose 39.9 ml/min Assessment and Plan 77yo male - 1. RUL pneumonia with ?LLL pneumonia - patient has had persistent infiltrative disease of the LLL, however, since 2017. It is unclear if there is any superimposed new pneumonia in the LLL at this time. Will treat for community-acquired pneumonia with rocephin & zithromax. Follow blood cx's. Uncertain is aspiration has played a role given his complaints today; will ask speech to see. He has had a video swallow in the past (05/2017). 2. acute/chronic diastolic CHF - improved today. Will give another dose of IV lasix 20mg x 1. Reassess in am; recheck BMP am. Cont BB. 3. CKD stage 3 - creatinine today is at baseline. 4. uncontrolled HTN - patient reports his BPs are always high. BP control will be essential to control #2. Will give lisinopril 5mg x 1; as long as renal function remains stable then continue low-dose BALJIT. If he can't tolerate BALJIT then CCB would be my next choice. 5. a. fib - rates controlled. INR now 2.5. Resume warfarin 2mg daily. Daily INR. 6. chronic hypoxic respiratory failure on home o2 - 2nd o COPD - cont inhalers , nebs, etc. O2 sats are stable. 7. severe COPD - may be in a very early exacerbation. Monitor off steroids for now. 8. weight loss, persistent LLL opacities - strongly consider repeat chest CT to r/o malignancy. 9. hypokalemia - replace K with oral potassium. 10. BPH - alpha bakari. 11. wall motion abnormality on echo - will presume he has CAD until otherwise proven. Should be on BB, statin, and aspirin at minimum. 12. dysphagia - has had w/u in the past for this in 2017. Reconsult speech. Change diet to mech soft in meantime. Also obtain PT, OT consultations. Continued [facility] stay due to: multiple IV medications needed Discharge planning: home
[2017-11-22] MEDS: FLUTICASONE/SALMETEROL 250/50 (ADVAIR) 14 PUFF/1 INHALER INH SCH (21:17)
[2017-11-22] MEDS: DOCUSATE SODIUM 100 MG CAP PO SCH (21:19)
[2017-11-22] MEDS: GUAIFENESIN 600 MG TABCR PO SCH (21:20)
[2017-11-23] VITALS (14 sets, daily range): BP systolic 150–190; BP diastolic 73–95; PULSE 56–108; TEMP 36.3–37; O2SAT 92–98
[2017-11-23] MEDS: ALBUT/IPRATROP 3MG/0.5MG NEB 3 ML VIAL INH SCH ×6 (03:20→23:17)
[2017-11-23] MEDS: LABETALOL HCL IV 5 MG/ML 20ML IV PRN (03:31)
[2017-11-23] MEDS: AZITHROMYCIN IV 500 MG in DEXTROSE 5% 250ML 250 ML IV SCH (03:36)
[2017-11-23 04:48] LABS: BASO % 0.3 %; BASO ABS # 0.02 K/uL (0-0.2); EOS % 2.6 %; EOS ABS # 0.19 K/uL (0-0.5); HEMATOCRIT 32.8 % (42-52); HEMOGLOBIN 10.9 g/dL (14.0-18.0); IG# 0.01 K/uL (0.00-0.02); LYMPH % 18.8 %; LYMPH ABS # 1.39 K/uL (1.2-3.4); MEAN CELL VOLUME 90.9 fL (80-100); MEAN CORPUSCULAR HEMOGLOBIN 30.2 pg (25-34); MEAN CORPUSCULAR HGB CONC 33.2 g/dl (32-36); MEAN PLATELET VOLUME 9.8 fL (7.4-10.4); MONO % 8.4 %; MONO ABS # 0.62 K/uL (0.11-0.59); NEUT % 69.8 %; NEUT ABS # 5.15 K/uL (1.4-6.5); PLATELET COUNT 108 K/uL (130-400); RED CELL DISTRIBUTION WIDTH CV 15.1 % (11.5-14.5); RED CELL DISTRIBUTION WIDTH SD 49.9 fL (36.4-46.3); WHITE BLOOD COUNT 7.38 K/uL (4.8-10.8)
[2017-11-23 04:57] LABS: INR 1.9 (0.9-1.1)
[2017-11-23 05:09] LABS: CALCIUM 8.1 mg/dl (8.5-10.1); CREATININE 1.51 mg/dl (0.60-1.40); POTASSIUM 3.5 mmol/L (3.5-5.1)
[2017-11-23] MEDS: CEFTRIAXONE SOD INJ 1 GM in DEXTROSE 5% ADD-VANTAGE 50ML 50 ML IV SCH (06:05)
[2017-11-23] MEDS: DULERA~ORDER AWAITING ACTION SCH ×2 (07:15→16:00)
[2017-11-23] MEDS: GUAIFENESIN 600 MG TABCR PO SCH ×2 (07:29→20:40)
[2017-11-23] MEDS: BETHANECHOL CHL 25 MG TAB PO SCH ×2 (07:29→20:41)
[2017-11-23] MEDS: GABAPENTIN 600 MG TAB PO SCH ×3 (07:29→20:41)
[2017-11-23] MEDS: TAMSULOSIN HCL 0.4 MG CAP PO SCH (07:29)
[2017-11-23] MEDS: METOPROLOL TARTRATE 100 MG TAB PO SCH ×2 (07:29→20:39)
[2017-11-23] MEDS: FLUTICASONE/SALMETEROL 250/50 (ADVAIR) 14 PUFF/1 INHALER INH SCH ×2 (07:29→20:39)
[2017-11-23] MEDS: LISINOPRIL 10 MG TAB PO SCH (08:28)
--- NOTE | 2017-11-23 10:03 | DIAGNOSTIC IMAGING REPORT ---
CT OF THE CHEST WITHOUT IV CONTRAST CLINICAL HISTORY: Shortness of breath. Persistent left lower lobe infiltrate/effusion. Lymphadenopathy. COMPARISON STUDY: Chest CT June 08, 2017 and chest radiograph November 22, 2017. CT DOSE: 651.46 mGycm TECHNIQUE: Axial images of the chest were obtained without IV contrast. Images were reviewed in the axial, sagittal, and coronal planes. IV contrast was not administered for this examination. A dose lowering technique was utilized adhering to the principles of ALARA. FINDINGS: The heart is moderately enlarged. There is moderate coronary artery calcification. No pericardial effusion is noted. Mildly enlarged mediastinal and bilateral hilar lymph nodes have slightly decreased in size since exam of June 08, 2017. Index prevascular node measures 1.3 cm in short axis diameter. Partially calcified nodes are noted. There is a small right pleural effusion. No pneumothorax is present. Left lung volume loss with apparent postoperative findings within the left chest wall are again noted. Mild interlobular septal thickening is noted. Left lung airspace opacity is noted. Left lower lobe opacity has improved when compared to exam of June 08, 2017. Patchy right upper lobe airspace opacities are present. No suspicious bony lesions are noted. A suspected right renal cyst is partially imaged. A left adrenal adenoma is unchanged. There are gallstones within the gallbladder. IMPRESSION: 1. Scattered bilateral airspace opacities which favor pneumonia. Alveolar pulmonary edema could appear similar. 2. Interlobular septal thickening suggestive of mild interstitial pulmonary edema. 3. Small right pleural effusion. 4. Left lung airspace opacities, slightly improved since exam of June 08, 2017. 5. Mild mediastinal and bilateral hilar lymphadenopathy which is improved since previous exam. Electronically signed by: Med Mena M.D. 11/23/2017 10:02 AM Dictated Date/Time: 11/23/2017 9:50 AM
[2017-11-23] MEDS ORDERED: POTASSIUM CHLORIDE 20 MEQ TABCR PO STA (10:44)
[2017-11-23] MEDS ORDERED: MAGNESIUM OXIDE 400 MG TAB PO ONE (10:44)
[2017-11-23] MEDS ORDERED: FUROSEMIDE INJ 20 MG in SYRINGE 0 ML IV ONE (11:00)
[2017-11-23] MEDS ORDERED: WARFARIN SOD 2 MG TAB PO SCH (16:00)
--- NOTE | 2017-11-23 17:32 | Progress Note ---
Subjective Date of Service: November 23, 2017. Subjective Pt evaluation today including: conversation w/ patient, conversation w/ family ( at bedside), physical exam, chart review, lab review, review of studies ( CT chest), conversation w/ lean consultant (pulmonary, Dr. Padilla), review of inpatient medication list Pain: none PO Intake: normal; improved Voiding: no voiding problems tele stable overnight rate-controlled a. fib feels much better cough much better denies dyspnea asks about discharge we discussed his CT results during a 2nd afternoon visit Problem List Medical Problems: (1) Acute respiratory failure with hypoxia Status: Acute (2) Atrial fibrillation with RVR Status: Acute (3) Congestive heart failure Status: Acute (4) Heart failure Status: Acute (5) Hypoxia Status: Acute (6) Left lower lobe pneumonia Status: Acute (7) Pneumonia involving left lung Status: Acute Review of Systems Constitutional: No fever, No chills Respiratory: + cough, No wheezing, No shortness of breath Cardiac: No chest pain, No orthopnea Abdomen: No pain Objective Vital Signs Date Time Temp Pulse Resp B/P (MAP) Pulse Ox O2 Delivery O2 Flow Rate FiO2 11/23/17 15:18 36.3 66 19 162/85 (110) 92 Nasal Cannula 2.0 11/23/17 14:55 99 16 98 Nasal Cannula 2.0 11/23/17 11:44 Nasal Cannula 2.0 11/23/17 11:38 36.9 97 18 176/90 (118) 92 11/23/17 11:11 108 16 94 Room Air 11/23/17 07:45 Nasal Cannula 2.0 11/23/17 07:14 84 16 96 Nasal Cannula 2.0 11/23/17 07:07 36.9 101 20 160/84 (109) 97 11/23/17 04:02 91 20 150/81 (104) 93 Nasal Cannula 2.0 11/23/17 04:00 94 Nasal Cannula 2.0 11/23/17 03:15 37.0 94 18 190/73 (112) 95 Nasal Cannula 3.5 11/23/17 00:01 92 Room Air 3.0 11/22/17 23:41 36.5 101 18 120/67 (84) 92 Room Air 11/22/17 20:00 92 Nasal Cannula 3.0 11/22/17 19:26 36.8 92 22 180/83 (115) 92 Nasal Cannula 3.0 11/22/17 19:09 98 18 92 Nasal Cannula 2.0 Physical Exam General Appearance: no apparent distress, + obese ENT: pharynx normal Neck: no JVD Respiratory/Chest: no respiratory distress, no accessory muscle use, + decreased breath sounds (left base), + rales (scant, both bases) Cardiovascular: no gallop, no murmur, + irregularly irregular Abdomen: normal bowel sounds, non tender, soft, no organomegaly Extremities: + pedal edema (trace b/l) Neurologic/Psychiatric: alert, oriented x 3 Laboratory Results Last 24 Hours Test 11/23/17 04:11 White Blood Count 7.38 K/uL Red Blood Count 3.61 M/uL Hemoglobin 10.9 g/dL Hematocrit 32.8 % Mean Corpuscular Volume 90.9 fL Mean Corpuscular Hemoglobin 30.2 pg Mean Corpuscular Hemoglobin Concent 33.2 g/dl Platelet Count 108 K/uL Mean Platelet Volume 9.8 fL Neutrophils (%) (Auto) 69.8 % Lymphocytes (%) (Auto) 18.8 % Monocytes (%) (Auto) 8.4 % Eosinophils (%) (Auto) 2.6 % Basophils (%) (Auto) 0.3 % Neutrophils # (Auto) 5.15 K/uL Lymphocytes # (Auto) 1.39 K/uL Monocytes # (Auto) 0.62 K/uL Eosinophils # (Auto) 0.19 K/uL Basophils # (Auto) 0.02 K/uL RDW Standard Deviation 49.9 fL RDW Coefficient of Variation 15.1 % Immature Granulocyte % (Auto) 0.1 % Immature Granulocyte # (Auto) 0.01 K/uL Prothrombin Time 19.3 SECONDS Prothromb Time International Ratio 1.9 Sodium Level 140 mmol/L Potassium Level 3.5 mmol/L Chloride Level 104 mmol/L Carbon Dioxide Level 32 mmol/L Anion Gap 4.0 mmol/L Blood Urea Nitrogen 13 mg/dl Creatinine 1.51 mg/dl Est Creatinine Clear Calc Drug Dose 41.5 ml/min Estimated GFR () 50.2 Estimated GFR (Non- 43.3 BUN/Creatinine Ratio 8.3 Random Glucose 115 mg/dl Calcium Level 8.1 mg/dl Assessment and Plan 77yo male - 1. RUL pneumonia - clinically improved. Day #2 of rocephin/zithromax. D/c IV therapy, change to levaquin tomorrow. Complete 7 day course. Blood cx's thus far negative. CT chest today confirmed the RUL pneumonia and possible minor b/l infiltrates in other lobes as well. 2. acute/chronic diastolic CHF - improving; lasix IV again today. Cont BB. Re-eval in am. 3. CKD stage 3 - creatinine today is at baseline and in fact slightly better. BMP in am to ensure stability. 4. uncontrolled HTN - patient reports BPs are always high outside the hospital. Tolerated the low-dose BALJIT yesterday with stable creatinine. Will start 10mg lisinopril daily. Cont BB. 5. a. fib - rates controlled. INR 1.9 today; INR again in am. Warfarin 2mg daily. 6. chronic hypoxic respiratory failure on home o2 - 2nd o COPD - cont inhalers , nebs, etc. O2 sats are stable. 7. severe COPD - not in exacerbation at this time. Defer on PO/IV steroids. 8. ?weight loss, persistent LLL opacities - CT today w/o evidence of obvious malignancy. 9. hypokalemia - resolved. 10. BPH - alpha bakari. 11. wall motion abnormality on echo - will presume he has CAD until otherwise proven. Should be on BB, statin, and aspirin at minimum. 12. dysphagia - has had w/u in the past for this in 2017. Reconsulted speech; dental soft diet recommended. . 13. chronic LLL opacity on chest imaging - CT today with modestly improved LLL infiltrates and improved lymphadenopathy suggesting more of a benign entity. I informed Dr. Padilla, his primary instructional support services director, about the CT chest. cleared for home by PT, OT updated at bedside suspect d/c home next 1-[address] [facility] stay due to: multiple IV medications needed Discharge planning: home
[2017-11-23] MEDS ORDERED: LEVOFLOXACIN CONSULT ACTIVE PRN (18:00)
[2017-11-23] MEDS ORDERED: LEVOFLOXACIN 750 MG TAB PO SCH (19:00)
[2017-11-23] MEDS: LACTOBACILLUS ACIDOPHILUS (FLORANEX) TAB PO SCH (20:38)
[2017-11-23] MEDS: DOCUSATE SODIUM 100 MG CAP PO SCH (20:39)
[2017-11-23] MEDS: MAGNESIUM OXIDE 400 MG TAB PO SCH (20:40)
[2017-11-24] MEDS: DULERA~ORDER AWAITING ACTION SCH
[2017-11-24 03:27] VITALS: BP 161/89; PULSE 98; TEMP 36.6; O2SAT 92
[2017-11-24] MEDS: ALBUT/IPRATROP 3MG/0.5MG NEB 3 ML VIAL INH SCH ×3 (04:00→12:00)
[2017-11-24 04:48] LABS: INR 1.9 (0.9-1.1)
[2017-11-24 04:59] LABS: CREATININE 1.54 mg/dl (0.60-1.40)
[2017-11-24 05:00] LABS: CALCIUM 8.4 mg/dl (8.5-10.1); POTASSIUM 3.7 mmol/L (3.5-5.1)
[2017-11-24 06:37] VITALS: BP 169/81; PULSE 89; TEMP 36.6; O2SAT 96
[2017-11-24 07:06] VITALS: PULSE 95; O2SAT 96
[2017-11-24] MEDS: GABAPENTIN 600 MG TAB PO SCH ×2 (07:18→12:41)
[2017-11-24] MEDS: BETHANECHOL CHL 25 MG TAB PO SCH (07:19)
[2017-11-24] MEDS: TAMSULOSIN HCL 0.4 MG CAP PO SCH (07:19)
[2017-11-24] MEDS: FLUTICASONE/SALMETEROL 250/50 (ADVAIR) 14 PUFF/1 INHALER INH SCH (07:20)
[2017-11-24] MEDS: LISINOPRIL 10 MG TAB PO SCH (07:21)
[2017-11-24] MEDS: LACTOBACILLUS ACIDOPHILUS (FLORANEX) TAB PO SCH ×2 (07:21→12:41)
[2017-11-24] MEDS: GUAIFENESIN 600 MG TABCR PO SCH (07:21)
[2017-11-24] MEDS: METOPROLOL TARTRATE 100 MG TAB PO SCH (07:22)
[2017-11-24] MEDS: MAGNESIUM OXIDE 400 MG TAB PO SCH (07:22)
[2017-11-24 11:20] VITALS: BP 151/92; PULSE 79; TEMP 36.7; O2SAT 94
[2017-11-24 12:09] VITALS: PULSE 92; O2SAT 96
[2017-11-24 13:57] VITALS: BP 151/92; PULSE 92; TEMP 36.7; O2SAT 96
[2017-11-24] MEDS ORDERED: LCTX PO (14:15)
[2017-11-24] MEDS ORDERED: MOME200A INH (14:15)
[2017-11-24] MEDS ORDERED: LSN10 PO (14:15)
[2017-11-24] MEDS ORDERED: WARF4TAB43 PO (14:15)
[2017-11-24] MEDS ORDERED: LVQ750 PO (14:15)
[2017-11-24] MEDS ORDERED: FURO-85 PO (14:15)
[2017-11-24] MEDS ORDERED: OXGN (14:32)
--- NOTE | 2017-11-24 14:38 | Discharge Instructions ---
Discharge Instructions Date of Service November 24, 2017. Admission Reason for Admission: Shortness Of Breath Discharge Discharge Diagnosis / Problem: Shortness of breath due to pneumonia and diastolic congestive heart failure Discharge Goals Goal(s): Learn about illness, Diagnostic testing, Therapeutic intervention Activity Recommendations Activity Limitations: resume your previous activity . Instructions / Follow-Up Instructions / Follow-Up From Dr. Delgado: Your shortness of breath was due to a combination of pneumonia in the right lung as well as fluid build-up in the lungs from diastolic congestive heart failure . You improved nicely with intravenous diuretics (lasix) and antibiotics. 1. Pneumonia - please take 3 more doses of levaquin (levofloxacin) antibiotic. Take your first dose on 11/25/17. Take your second dose on 11/27/17. And take your third and final dose on 11/29/17. Prescription sent to [facility] for you. 2. For cough/congestion - you can take [id number] mucinex up to 1200mg twice a day as needed/desired. Continue on your nebulizer treatments and inhalers as previous. 3. COPD - Dr. Padilla wants you to take your DULERA inhaler TWICE A DAY every day . Take 2 puffs in the morning and 2 puffs in the evening every day. Rinse your mouth with water after its use. I have given you a written prescription for this if you get home and need a refill on it. 4. High blood pressure - your blood pressures throughout your stay were elevated. We have started you on lisinopril once a day. Take 10mg every day. Prescription sent to [facility] for you. 5. Diastolic Congestive Heart Failure - * this is a form of congestive heart failure that results from the heart "not relaxing well" * high blood pressure, too much salt, too much fluid intake, etc all cause diastolic congestive heart failure to become active * if you control your blood pressure, watch your salt and fluid intake, and check your weight every morning it can be controlled nicely * please check your weight every morning on the same scale at your house * your weight today at [facility] is 238 pounds * if you gain more than 2-3 pounds in 1-2 days please TAKE YOUR LASIX ( FUROSEMIDE) AND CALL YOUR DOCTORS THAT YOUR WEIGHT HAS GONE UP * again you will only take lasix if you are gaining fluid weight; if your weight is stable you do not need to take the lasix Additional congestive heart failure instructions - Call your Primary Care doctor if any of the following symptoms or problems start or get worse: * Shortness of breath or difficulty breathing * Wake up at night short of breath * Chest pain * Cough * Swelling of your hands, feet, or legs * More fatigued or tired with your normal activity * Palpitations - sudden fast heart beats WEIGHT * Weigh yourself every morning after using the bathroom. * Use the same scale. * Wear the same amount of clothing. * Write your weight down on a chart. * Call your Primary Care doctor if you gain more than 2-3 pounds in 1-2 days. Start your lasix (furosemide) if you start to have weight gains. The weight gain often suggests you are taking on excess fluid. MEDICATIONS * Use this discharge instruction sheet for medication instructions. * Take your medications at the time your doctor ordered. * Do not skip a dose of your medicines. * If you miss a dose of medicine, take it as soon as possible, but DO NOT DOUBLE A DOSE. * Read your medicine information when you get home. * Know all of the side effects of your medicine. If in doubt, ask your pharmacist * Call your Primary Care doctor's office if you have any side effects. * Be sure all of your doctors know what medicine and herbs you take (including cold, flu, and herbal medicine). Take the following with you to your follow-up doctor appointments: * Weight Chart * Medication List * List of questions 6. There was an additional abnormality on your echocardiogram of your heart that I would like for you to see the jumbo operator about. Please ask your family doctor for a referral to the jumbo operator. There was some suggestion that a small part of the muscle of the left heart may not be functioning as well as previous. 7. Your INR (coumadin/warfarin level) today is 1.9. Know that the antibiotics may cause the INR to go up higher than desired. Please have your INR repeated in 3-4 days to ensure it is within the goal range of 2-3. 8. Take the lactinex probiotics to prevent diarrhea from the levaquin antibiotic. 9. Follow-up - see separate section detailing all of your follow-up appointment dates/times. 10. Your CAT scan of the lungs showed that the previous abnormality in the left lower lobe has IMPROVED. The swollen glands in the lungs that were seen 6 months ago are ALSO IMPROVED. Dr. Padilla is aware that you had this CAT scan. 11. Recommendations from the speech therapist - * follow a MOIST dental soft diet * do not use straws * excercise "Aspiration precautions" - these are things you can do to prevent food/beverage going into the lungs; remain upright and alert for all meals, alternate consistencies of foods (example - don't eat a portion of meat all at once; take a bite of meat, then sip some beverage, then have a different type of food , then sip more beverage, etc) * take small bites of food and small sips of fluids at a slow rate 11. Return to [facility] if - * you are having worsening shortness of breath despite your oxygen, inhalers, nebs, etc * you are having chest pain * you have fever over 100.5 degrees * you develop severe diarrhea * any other concerns Current Hospital Diet Patient's current hospital diet: AHA Diet (Heart Healthy) Discharge Diet Recommended Diet: AHA Diet (Heart Healthy) Fluid Restriction: 1800 ml (7 cups) Procedures Procedures Performed: 1. CAT scan of lungs 2. echocardiogram Pending Studies Studies pending at discharge: no Medical Emergencies . Who to Call and When: Call 911 or go to the Emergency Room if: * If at any time you feel your situation is an emergency * You have tightness or pain in your chest that does not go away with rest or Nitroglycerin * You are very short of breath even with rest . Non-Emergent Contact Non-Emergency issues call your: Primary Care Provider Call Non-Emergent contact if: temperature is above 100.5, you have any medication questions . . "Provider Documentation" section prepared by Richard Delgado. .
[2017-11-24] MEDS ORDERED: IPRATROPIUM BROMIDE/ALBUTEROL respimat INH INH SCH (16:00)
--- NOTE | 2017-11-24 23:26 | Discharge Summary ---
Discharge Summary Date of Service November 24, 2017. Discharge Summary Admission Date: November 22, 2017 at 02:39 Discharge Date: November 24, 2017 Discharge Disposition: Home with services Principal Diagnosis: community-acquired pneumonia, RUL Problems/Secondary Diagnoses: 1. acute/chronic diastolic CHF 2. chronic hypoxic respiratory failure on home O2 3. COPD 4. chronic LLL infiltrate, improved on imaging this admission 5. mild dysphagia 6. CKD stage 3 7. atrial fibrillation 8. new wall motion abnormality on echo - cardiology follow-up recommended 9. HTN 10. BPH 11. morbid obesity - BMI 46.7 Immunizations: Have You Had Influenza Vaccine: Unknown Influenza Vaccine Date: Apr 22, 2011 History of Tetanus Vaccine?: Unknown History of Pneumococcal: Unknown Pneumococcal Date: Jul 22, 2007 History of Hepatitis B Vaccine: Unknown Procedures: 1. Echocardiogram - -- Conclusions -- * There is mild concentric left ventricular hypertrophy. * Ejection Fraction = 60-65%. * Mild aortic regurgitation. * There is mild to moderate mitral regurgitation. * Right ventricular systolic pressure is normal. * Borderline aortic root dilatation. * Mild basal inferior hypokinesis. 2. CT chest - IMPRESSION: 1. Scattered bilateral airspace opacities which favor pneumonia. Alveolar pulmonary edema could appear similar. 2. Interlobular septal thickening suggestive of mild interstitial pulmonary edema. 3. Small right pleural effusion. 4. Left lung airspace opacities, slightly improved since exam of June 08, 2017. 5. Mild mediastinal and bilateral hilar lymphadenopathy which is improved since previous exam. Consultations: PT, OT, speech therapy Medication Reconciliation New Medications: Furosemide (Lasix) 20 Mg Tab 20 MG PO QAM PRN for weight gain, #30 TAB 0 Refills Home O2 Therapy (Oxygen) Gas 2 LITERS NA CONTINOUS, #1 UNIT 0 Refills Lactobacillus Acidophilus (Floranex) 1 Tab Tab 4 TAB PO TIDM for 7 Days, #84 TAB 0 Refills Levofloxacin (Levofloxacin) 750 Mg Tab 750 MG PO DIRECTED, #3 TAB 0 Refills take first dose on 11/25/17, second dose on 11/27/17, and third dose on 11/29/17. Lisinopril (Zestril) 10 Mg Tab 10 MG PO QAM, #30 TAB 2 Refills for high blood pressure Changed Medications: Mometasone Furoate-Formoterol (Dulera 200/5 Mcg) 1 Aer Aer 2 PUFFS INH BID, #1 INHALER 2 Refills (Changed from: HS; Refills: ) Warfarin Sodium (Warfarin Sodium) 2 Mg Tab 2 MG PO DAILY, #30 TABS 0 Refills (Changed from: HELD TODAY; Refills: ; Removed Instructions) Continued Medications: Acetaminophen (Tylenol Arthritis Ext Rel) 650 Mg Cplt 1300 MG PO DAILY PRN for Pain, CAP Bethanechol Chloride (Bethanechol Chloride) 50 Mg Tab 50 MG PO BID Cholecalciferol (Vitamin D3) 2,000 Unit Cap 2000 UNITS PO DAILY Docusate Sodium (Stool Softener) 100 Mg Cap 100 MG PO DAILY Gabapentin (Gabapentin) 600 Mg Tab 600 MG PO TID Guaifenesin Ext Rel (Mucinex Ext Rel) 600 Mg Tab 600 MG PO Q12 PRN for CONGESTION, TAB Ipratropium-Albuterol (Combivent Respimat) 1 Aer Aer 2 PUFFS INH QID PRN for SOB/Wheezing Levalbuterol (Levalbuterol HCl) 1.25 Mg/3 Ml Nebu 1 DOSE INFIL Q8 Loteprednol Etabonate-Tobramyc (Zylet) 1 Dorinda Dorinda 1 DROPS OPB QAM, #5 ML Melatonin (Melatonin Maximum Strengt) 5 Mg Tab 1 TAB PO HS Metoprolol Tartrate (Metoprolol Tartrate) 100 Mg Tab 100 MG PO BID Tamsulosin Hcl (Flomax) 0.4 Mg Cap 0.4 MG PO DAILY Trazodone Hcl (Trazodone) 50 Mg Tab 50 MG PO HS PRN for Sleep Discharge Exam Physical Exam: General Appearance: no apparent distress, + obese ENT: pharynx normal Neck: no JVD Respiratory/Chest: no respiratory distress, no accessory muscle use, + decreased breath sounds (left base), + pertinent finding (no wheeze or crackle) Cardiovascular: no gallop, no murmur, normal peripheral pulses, + irregularly irregular Abdomen / GI: normal bowel sounds, non tender, soft, no organomegaly Extremities: no pedal edema Neurologic/Psychiatric: alert, oriented x 3 Hospital Course HISTORY OF PRESENT ILLNESS: Patient is a 77yo male with history of COPD on 2L home O2 continuously as well as atrial fibrillation on chronic coumadin who presented with 1 day of progressive shortness of breath. Patient also reported some orthopnea and a cough that was initially dry but had an episode of hemoptysis. Patient reported subjective fevers, chills and sweats x 1 day as well as generalized weakness and fatigue. Family reported oxygen saturation in the 70's just prior to admission that resolved with increasing the oxygen to 2.5 liters. Initial chest x-ray was concerning for pulmonary edema +/- pneumonia. HOSPITAL COURSE: The patient's presenting shortness of breath appeared to be a combination of pneumonia as well as acute/chronic diastolic CHF. He was treated with IV/PO antibiotics as well as IV/PO lasix. He made rapid improvement in all symptoms with these measures. On day of discharge his O2 sats with his NC O2 in place were in the mid 90s ( both at rest and with walking). CT chest was performed given his persistent LLL opacity seen on multiple prior chest studies and this showed improvement in the chronic LLL infiltrate. It also confirmed the presence of RUL pneumonia, some other scattered areas of pneumonia, and pulmonary edema. Blood cultures remained negative while hospitalized. Dr. Padilla, his primary sizing sprayer, was made aware of the improved chest CT findings. With respect to the diastolic CHF the patient was given a prescription for lasix 20mg to be used on a PRN basis for weight gain. Discharge weight was 238 pounds. CHF instructions were provided. The RUL pneumonia was either community-acquired in origin vs. aspiration; the former was favored. He will complete a course of levaquin after discharge. Fortunately his COPD remained stable and without exacerbation while here. Throughout the stay the patient's blood pressures were elevated. For that reason low-dose lisinopril was added. Creatinine remained stable despite the addition of the BALJIT. Discharge creatinine was 1.5 which is his baseline. INR was 1.9 on day of discharge. He will remain on 2mg of coumadin daily. Repeat INR within 5 days of discharge was advised given his antibiotic usage. The patient complained of mild dysphagia while hospitalized. He was placed on a dental soft diet by speech therapy. No overt aspiration was seen by the speech therapist on bedside swallow evaluation. Echocardiogram showed preserved ejection fraction but appeared to demonstrate a new wall motion abnormality in the inferior wall. Despite this new finding he reported no ischemic symptoms. With that said cardiology consultation as an outpatient was recommended. Prior to discharge the patient was cleared by PT/OT for home. He was set up with a home health nurse for medication compliance & other teaching. Total Time Spent: Greater than 30 minutes This includes examination of the patient, discharge planning, medication reconciliation, and communication with other providers. Discharge Instructions Please refer to the electronic Patient Visit Report (Discharge Instructions) for additional information. Follow-Up 1. Christiana Miranda PA-C on ThursdayNovember 30 at 3:00 pm. 2. [facility] Nephrology Office with Dr. Gonsalves on ThursdayDecember 02 at 12:45 pm. 3. [facility] Pulmonology Office with Dr. Padilla on ThursdayDecember 25 at 2:30 pm. 4. Recommend consultation with [facility] due to new wall motion abnormality seen on echo Additional Copies To Junior Padilla DO; Jewel Gonsalves M.D.; Luis Colmenares M.D.; Christiana MirandaPNakul.
== END 2017-11-24 15:09 | disposition home health service (06) | DRG 193 ==
LOC: C.EDB 21:09 → C.2T 11-22 02:39 → ENRESERV 11-22 03:02
PROVIDERS: ADMIT Internal Medicine; ATTEND Internal Medicine
DX: J18.9 Pneumonia, unspecified organism (principal); I50.33 Acute on chronic diastolic (congestive) heart failure; J96.11 Chronic respiratory failure with hypoxia; J44.0 Chronic obstructive pulmonary disease with (acute) lower respiratory infection; I13.0 Hypertensive heart and chronic kidney disease with heart failure and stage 1 through stage 4 chronic kidney disease, or unspecified chronic kidney disease; Z68.42 Body mass index [BMI] 45.0-49.9, adult; E87.6 Hypokalemia; R91.8 Other nonspecific abnormal finding of lung field; R93.1 Abnormal findings on diagnostic imaging of heart and coronary circulation; R63.4 Abnormal weight loss; I48.91 Unspecified atrial fibrillation; N18.3 Chronic kidney disease, stage 3 (moderate); R13.10 Dysphagia, unspecified; I25.10 Atherosclerotic heart disease of native coronary artery without angina pectoris; N40.0 Benign prostatic hyperplasia without lower urinary tract symptoms; E66.01 Morbid (severe) obesity due to excess calories; Z66 Do not resuscitate; Z99.81 Dependence on supplemental oxygen; Z90.2 Acquired absence of lung [part of]; Z79.01 Long term (current) use of anticoagulants; Z79.51 Long term (current) use of inhaled steroids; Z79.899 Other long term (current) drug therapy; Z88.1 Allergy status to other antibiotic agents

== ENCOUNTER → 2017-11-26 | Outpatient (CLI) | payer OTHER ==
[~2017-11-26] MED LIST changes: +ACET1TAB84 PO; -BIMA0.01 OPB; +DOCU100C PO; +FURO-85 PO; +GUAI1TAB55 PO; +IPRA1AER2 INH; +LCTX PO; +LSN10 PO; +LVQ750 PO; -SNG10 PO; +XPNINS125 INFIL; -[UNRECOGNIZED DRUG - CODE] INH; +[UNRECOGNIZED DRUG - CODE] OPB; -mucinex PO
[2017-11-26 12:57] LABS: HEMOGLOBIN 12.2 g/dL (14.0-18.0); MEAN CORPUSCULAR HEMOGLOBIN 30.3 pg (25-34); PLATELET COUNT 175 K/uL (130-400); RED CELL DISTRIBUTION WIDTH SD 50.9 fL (36.4-46.3)
[2017-11-26 17:18] LABS: ALBUMIN 3.2 gm/dl (3.4-5.0); BLOOD UREA NITROGEN 14 mg/dl (7-18); CALCIUM 9.3 mg/dl (8.5-10.1); CARBON DIOXIDE 31 mmol/L (21-32); CREATININE 1.72 mg/dl (0.60-1.40); GLUCOSE 204 mg/dl (70-99); POTASSIUM 3.8 mmol/L (3.5-5.1); SODIUM 140 mmol/L (136-145)
== END | disposition home or self-care (01) ==
LOC: C.LABBFT 11:15
PROVIDERS: ATTEND Internal Medicine Nephrology
DX: I12.9 Hypertensive chronic kidney disease with stage 1 through stage 4 chronic kidney disease, or unspecified chronic kidney disease (principal); N18.3 Chronic kidney disease, stage 3 (moderate); R60.9 Edema, unspecified; E55.9 Vitamin D deficiency, unspecified

== ENCOUNTER 2017-11-30 16:18 | Emergency (ER) | payer OTHER ==
[2017-11-30 16:19] VITALS: TEMP 36.3; Ht 182.9 cm
[2017-11-30] MEDS ORDERED: SODIUM CHLORIDE 0.9% 1000ML 250 ML IV STA (16:33)
--- NOTE | 2017-11-30 16:40 | EMERGENCY ROOM VISIT NOTE ---
History Report prepared by Edilia: Xena Teague Under the Supervision of: Dr. Sanford Barroso M.D. First contact with patient: 16:28 Chief Complaint: DIZZY Stated Complaint: DIZZY History of Present Illness The patient is a 77 year old male who presents to the Emergency Room with complaints of worsening weakness. He was referred to the ED by his PCP, Dr. Ham, who he saw earlier today. The patient was discharged from the hospital on November 24 after a stay for pneumonia and cardiac complications. Today at his follow up visit, Dr. Ham's office became concerned that the patient has become increasingly weak since discharge and had possibly confused his medications. The patient admits he fell yesterday, sliding down his shower door. He believes he fell because he has been weak, and denies hitting his head or sustaining any injuries. He states he did not mix up his medications, but his home health nurses may have. He denies any cough or shortness of breath. He has not vomited or experienced diarrhea. He is still on daily Coumadin. The patient reports his blood pressure is normally around 130 systolic, and admits he knows it is lower than usual today at 113/70. He denies any abdominal pain or urinary symptoms. Per previous notes, when the patient was discharged, he was prescribed Lasix to be used as needed for weight gain. Source of History: patient, treating provider (Dr. Ham's office) Onset: past few days Position: other (global) Timing: worsening Associated Symptoms: No cough, No SOB, No vomiting, No abdominal pain, No diarrhea, No urinary symptoms Review of Systems See HPI for pertinent positives & negatives. A total of 10 systems reviewed and were otherwise negative. Past Medical & Surgical Medical Problems: (1) ANTICOAGULANTS,LT,CURRENT USE (2) ATRIAL FIBRILLATION (3) Bacterial pneumonia (4) Bacterial pneumonia, unspecified (5) Benign essential hypertension (6) CHRONIC KIDNEY DISEASE, STAGE III (MODERATE) (7) COPD (chronic obstructive pulmonary disease) (8) Shortness of breath Family History Diabetes mellitus FHx: kidney disease Heart disease Hypertension Kidney stone Social History Smoking Status: Never Smoker Alcohol Use: none Drug Use: none Marital Status: Housing Status: lives with family Occupation Status: retired Current/Historical Medications Scheduled Bethanechol Chloride (Bethanechol Chloride), 50 MG PO BID Cholecalciferol (Vitamin D3), 2,000 UNITS PO DAILY Docusate Sodium (Stool Softener), 100 MG PO DAILY Gabapentin (Gabapentin), 600 MG PO TID Home O2 Therapy (Oxygen), 2 LITERS NA CONTINOUS Lactobacillus Acidophilus (Floranex), 4 TAB PO TIDM Levalbuterol (Levalbuterol HCl), 1 DOSE INFIL Q8 Levofloxacin (Levofloxacin), 750 MG PO DIRECTED Lisinopril (Zestril), 10 MG PO QAM Loteprednol Etabonate-Tobramyc (Zylet), 1 DROPS OPB QAM Melatonin (Melatonin Maximum Strengt), 1 TAB PO HS Metoprolol Tartrate (Metoprolol Tartrate), 100 MG PO BID Mometasone Furoate-Formoterol (Dulera 200/5 Mcg), 2 PUFFS INH BID Tamsulosin Hcl (Flomax), 0.4 MG PO DAILY Warfarin Sodium (Warfarin Sodium), 2 MG PO DAILY Scheduled PRN Acetaminophen (Tylenol Arthritis Ext Rel), 1,300 MG PO DAILY PRN for Pain Furosemide (Lasix), 20 MG PO QAM PRN for weight gain Guaifenesin Ext Rel (Mucinex Ext Rel), 600 MG PO Q12 PRN for CONGESTION Ipratropium-Albuterol (Combivent Respimat), 2 PUFFS INH QID PRN for SOB/Wheezing Trazodone Hcl (Trazodone), 50 MG PO HS PRN for Sleep Allergies Coded Allergies: Ciprofloxacin (Verified Adverse Reaction, Unknown, GI UPSET, 09/04/17) Physical Exam Vital Signs Date Time Temp Pulse Resp B/P (MAP) Pulse Ox O2 Delivery O2 Flow Rate FiO2 11/30/17 19:23 74 20 145/100 99 Nasal Cannula 2.0 11/30/17 18:13 83 21 99 11/30/17 17:58 80 17 98 11/30/17 17:53 83 23 99 11/30/17 17:48 79 23 97 11/30/17 17:43 86 19 99 11/30/17 17:42 140/76 11/30/17 17:23 18 11/30/17 17:18 17 11/30/17 17:13 26 11/30/17 17:11 97/66 11/30/17 17:10 148/69 11/30/17 17:08 90 26 99 11/30/17 17:07 123/77 11/30/17 17:06 82 26 123/77 99 Room Air 84 148/69 82 97/66 11/30/17 17:03 78 18 11/30/17 16:58 86 22 11/30/17 16:57 79 11/30/17 16:52 98 Room Air 11/30/17 16:19 36.3 84 20 113/70 99 Nasal Cannula 2.0 Physical Exam GENERAL: Patient is in no acute distress. HEENT: No acute trauma, normocephalic atraumatic, mucous membranes moist, no nasal congestion, no scleral icterus. NECK: No stridor, no adenopathy, no meningismus, trachea is midline. LUNGS: Scattered crackles, no wheezing, breath sounds are equal, no respiratory distress. HEART: Irregular rhythm with normal rate, no murmurs. ABDOMEN: Soft, nontender, bowel sounds positive, no hernias, no peritonitis. EXTREMITIES: No cyanosis or edema, full range of motion of all the joints without pain or difficulty, no signs for acute trauma. NEUROLOGIC: Oriented x 3, no acute motor or sensory deficits, no focal weakness. SKIN: No rash, no jaundice, no diaphoresis. Medical Decision & Procedures ER Provider Diagnostic Interpretation: Radiology results as stated below per my review and radiologist interpretation: CHEST ONE VIEW PORTABLE CLINICAL HISTORY: EVALUATE ALTERED MENTAL STATUS/WEAKNESS COMPARISON STUDY: Chest CT November 23, 2017. FINDINGS: Left hemithorax volume loss is unchanged. Cardiomediastinal silhouette is stable. There is no pneumothorax. Bilateral airspace opacities have improved since exam of November 23, 2017. IMPRESSION: 1. Interval resolution of right lung airspace opacities with improvement in left lung airspace opacities. 2. No change in left hemithorax volume loss. Electronically signed by: Med Mena M.D. 11/30/2017 4:[address] OF THE HEAD WITHOUT CONTRAST CLINICAL HISTORY: EVALUATE ALTERED MENTAL STATUS/WEAKNESS COMPARISON STUDY: Head CT October 21, 2011. CT DOSE: 1572.52 mGy.cm TECHNIQUE: Helical axial images of the head were obtained without IV contrast. Automated exposure control was utilized for the study. A dose lowering technique was utilized adhering to the principles of ALARA. FINDINGS: No acute intracranial hemorrhage, midline shift or mass effect is present. White matter hypodensities suggest moderate small vessel disease. A small focus of encephalomalacia within the superior right frontal lobe is unchanged since head CT of October 21, 2011. Ventricular system is unremarkable for age. Basilar cisterns are patent. There are no findings to suggest acute dural sinus thrombosis or acute territorial infarct. Moderate mucosal opinion the right maxillary sinus is noted. A few locules of gas within the right infratemporal fossa are likely venous in location. IMPRESSION: 1. No acute intracranial findings. 2. Moderate thickening of the right maxillary sinus. Electronically signed by: Med Mena M.D. 11/30/2017 5:42 PM Laboratory Results 11/30/17 16:59 Red Blood Count 4.06, Mean Corpuscular Volume 90.6, Mean Corpuscular Hemoglobin 29.8, Mean Corpuscular Hemoglobin Concent 32.9, Mean Platelet Volume 9.9, Neutrophils (%) (Auto) 68.9, Lymphocytes (%) (Auto) 20.6, Monocytes (%) (Auto) 6.7, Eosinophils (%) (Auto) 3.1, Basophils (%) (Auto) 0.6, Neutrophils # (Auto) 4.85, Lymphocytes # (Auto) 1.45, Monocytes # (Auto) 0.47, Eosinophils # (Auto) 0.22, Basophils # (Auto) 0.04 11/30/17 16:59 Test 11/30/17 16:59 11/30/17 18:40 White Blood Count 7.04 K/uL (4.8-10.8) Red Blood Count 4.06 M/uL (4.7-6.1) Hemoglobin 12.1 g/dL (14.0-18.0) Hematocrit 36.8 % (42-52) Mean Corpuscular Volume 90.6 fL (80-100) Mean Corpuscular Hemoglobin 29.8 pg (25-34) Mean Corpuscular Hemoglobin Concent 32.9 g/dl (32-36) Platelet Count 169 K/uL (130-400) Mean Platelet Volume 9.9 fL (7.4-10.4) Neutrophils (%) (Auto) 68.9 % Lymphocytes (%) (Auto) 20.6 % Monocytes (%) (Auto) 6.7 % Eosinophils (%) (Auto) 3.1 % Basophils (%) (Auto) 0.6 % Neutrophils # (Auto) 4.85 K/uL (1.4-6.5) Lymphocytes # (Auto) 1.45 K/uL (1.2-3.4) Monocytes # (Auto) 0.47 K/uL (0.11-0.59) Eosinophils # (Auto) 0.22 K/uL (0-0.5) Basophils # (Auto) 0.04 K/uL (0-0.2) RDW Standard Deviation 48.1 fL (36.4-46.3) RDW Coefficient of Variation 14.6 % (11.5-14.5) Immature Granulocyte % (Auto) 0.1 % Immature Granulocyte # (Auto) 0.01 K/uL (0.00-0.02) Prothrombin Time 24.3 SECONDS (9.0-12.0) Prothromb Time International Ratio 2.4 (0.9-1.1) Activated Partial Thromboplast Time 38.5 SECONDS (21.0-31.0) Partial Thromboplastin Ratio 1.5 Anion Gap 4.0 mmol/L (3-11) Estimated GFR () 39.0 Estimated GFR (Non- 33.7 BUN/Creatinine Ratio 7.2 (10-20) Calcium Level 8.7 mg/dl (8.5-10.1) Magnesium Level 2.1 mg/dl (1.8-2.4) Total Bilirubin 0.5 mg/dl (0.2-1) Aspartate Amino Transf (AST/SGOT) 17 U/L (15-37) Alanine Aminotransferase (ALT/SGPT) 19 U/L (12-78) Alkaline Phosphatase 64 U/L (45-117) Total Creatine Kinase 35 U/L (39-308) Troponin I < 0.015 ng/ml (0-0.045) Total Protein 6.9 gm/dl (6.4-8.2) Albumin 3.0 gm/dl (3.4-5.0) Globulin 3.9 gm/dl (2.5-4.0) Albumin/Globulin Ratio 0.8 (0.9-2) Thyroid Stimulating Hormone (TSH) 1.570 uIu/ml (0.300-4.500) Urine Color YELLOW Urine Appearance CLEAR (CLEAR) Urine pH 5.0 (4.5-7.5) Urine Specific [place] 1.012 (1.000-1.030) Urine Protein 1+ (NEG) Urine Glucose (UA) NEG (NEG) Urine Ketones NEG (NEG) Urine Occult Blood 2+ (NEG) Urine Nitrite NEG (NEG) Urine Bilirubin NEG (NEG) Urine Urobilinogen NEG (NEG) Urine Leukocyte Esterase NEG (NEG) Urine WBC (Auto) 1-5 /hpf (0-5) Urine RBC (Auto) 5-10 /hpf (0-4) Urine Hyaline Casts (Auto) 1-5 /lpf (0-5) Urine Epithelial Cells (Auto) 0-5 /lpf (0-5) Urine Bacteria (Auto) NEG (NEG) Laboratory results reviewed by me. Medications Administered Medications (Trade) Dose Ordered Sig/Prem Route Start Time Stop Time Status Last Admin Dose Admin Sodium Chloride 250 ml @ 999 mls/hr Q16M STAT IV 11/30/17 16:33 11/30/17 16:48 DC 11/30/17 17:16 999 MLS/HR Sodium Chloride 500 ml @ 999 mls/hr Q31M STAT IV 11/30/17 17:35 11/30/17 18:05 DC 11/30/17 17:57 999 MLS/HR ECG Per My Interpretation Indication: weakness Rate (beats per minute): 77 Rhythm: atrial fibrillation Findings: no ectopy, other (No ST elevation, no PVC) ED Course 162: The patient was evaluated in room B9. A complete history and physical exam was performed. 1633: NSS 250 ml @ 999 mls/hr IV. 1735: Orthostatic vital signs are positive. Blood pressure dropped significantly with standing. 1735: NSS 500 ml @ 999 mls/hr IV. 182: I reevaluated the patient. He is doing well. He is going to give a urine sample now. I asked him if he has been taking his Lasix and he says he has not been taking it. 1929: I reevaluated the patient. He is feeling well and is ready to go home. I discussed his results and discharge instructions and he verbalized complete understanding and agreement. Medical Decision The differential diagnoses considered include dehydration, electrolyte imbalance , anemia, stroke, infection, orthostasis, PR and medication reaction. There is no leukocytosis. The patient is mildly anemic but this is baseline looking back at previous testing. Creatinine is mildly elevated, likely consistent with some dehydration. No hepatitis. INR is therapeutic for someone using Coumadin. The patient appears to be in a euthyroid state. Chest x-ray does not show pneumonia or CHF--the film is improved compared to previous films. EKG shows A. fib which is rate controlled. Cardiac enzyme testing 1 is not consistent with acute cardiac injury. Brain CT shows no acute bleed or mass-effect. Urinalysis does not show infection. Orthostatic vital signs were positive. The patient presents with weakness and a lower blood pressure. He did receive about 750 cc of IV saline, his blood pressure is improved and he feels improved. I think the patient was dehydrated. He is being discharged, he will increase his fluid intake daily. He will follow with his doctor's office. If worsening , he can return. Medication Reconcilliation Current Medication List: was personally reviewed by me Blood Pressure Screening Patient's blood pressure: Elevated blood pressure Blood pressure disposition: Elevated BP felt to be situational Impression Primary Impression: Dizziness Additional Impression: Dehydration Scribe Attestation The scribe's documentation has been prepared under my direction and personally reviewed by me in its entirety. I confirm that the note above accurately reflects all work, treatment, procedures, and medical decision making performed by me. Departure Information Dispostion Home / Self-Care Referrals Luis Colmenares M.D. (PCP) Patient Instructions My [facility] Additional Instructions increase your water drinking by 1 glass as discussed see the gloria md in a few days for a recheck return for fever or worsening symptoms Problem Qualifiers
[2017-11-30 16:52] VITALS: O2SAT 98
--- NOTE | 2017-11-30 16:56 | DIAGNOSTIC IMAGING REPORT ---
CHEST ONE VIEW PORTABLE CLINICAL HISTORY: EVALUATE ALTERED MENTAL STATUS/WEAKNESS COMPARISON STUDY: Chest CT November 23, 2017. FINDINGS: Left hemithorax volume loss is unchanged. Cardiomediastinal silhouette is stable. There is no pneumothorax. Bilateral airspace opacities have improved since exam of November 23, 2017. IMPRESSION: 1. Interval resolution of right lung airspace opacities with improvement in left lung airspace opacities. 2. No change in left hemithorax volume loss. Electronically signed by: Med Mena M.D. 11/30/2017 4:55 PM Dictated Date/Time: 11/30/2017 4:53 PM
[2017-11-30 17:22] LABS: BASO % 0.6 %; BASO ABS # 0.04 K/uL (0-0.2); EOS % 3.1 %; EOS ABS # 0.22 K/uL (0-0.5); HEMATOCRIT 36.8 % (42-52); HEMOGLOBIN 12.1 g/dL (14.0-18.0); IG# 0.01 K/uL (0.00-0.02); LYMPH % 20.6 %; LYMPH ABS # 1.45 K/uL (1.2-3.4); MEAN CELL VOLUME 90.6 fL (80-100); MEAN CORPUSCULAR HEMOGLOBIN 29.8 pg (25-34); MEAN CORPUSCULAR HGB CONC 32.9 g/dl (32-36); MEAN PLATELET VOLUME 9.9 fL (7.4-10.4); MONO % 6.7 %; MONO ABS # 0.47 K/uL (0.11-0.59); NEUT % 68.9 %; NEUT ABS # 4.85 K/uL (1.4-6.5); PLATELET COUNT 169 K/uL (130-400); RED CELL DISTRIBUTION WIDTH CV 14.6 % (11.5-14.5); RED CELL DISTRIBUTION WIDTH SD 48.1 fL (36.4-46.3); WHITE BLOOD COUNT 7.04 K/uL (4.8-10.8)
[2017-11-30 17:31] LABS: INR 2.4 (0.9-1.1); PTT PATIENT 38.5 SECONDS (21.0-31.0)
[2017-11-30] MEDS ORDERED: SODIUM CHLORIDE 0.9% 500ML 500 ML IV STA (17:35)
--- NOTE | 2017-11-30 17:44 | DIAGNOSTIC IMAGING REPORT ---
CT OF THE HEAD WITHOUT CONTRAST CLINICAL HISTORY: EVALUATE ALTERED MENTAL STATUS/WEAKNESS COMPARISON STUDY: Head CT October 21, 2011. CT DOSE: 1572.52 mGy.cm TECHNIQUE: Helical axial images of the head were obtained without IV contrast. Automated exposure control was utilized for the study. A dose lowering technique was utilized adhering to the principles of ALARA. FINDINGS: No acute intracranial hemorrhage, midline shift or mass effect is present. White matter hypodensities suggest moderate small vessel disease. A small focus of encephalomalacia within the superior right frontal lobe is unchanged since head CT of October 21, 2011. Ventricular system is unremarkable for age. Basilar cisterns are patent. There are no findings to suggest acute dural sinus thrombosis or acute territorial infarct. Moderate mucosal opinion the right maxillary sinus is noted. A few locules of gas within the right infratemporal fossa are likely venous in location. IMPRESSION: 1. No acute intracranial findings. 2. Moderate thickening of the right maxillary sinus. Electronically signed by: Med Mena M.D. 11/30/2017 5:42 PM Dictated Date/Time: 11/30/2017 5:39 PM
[2017-11-30 17:49] LABS: ALKALINE PHOSPHATASE 64 U/L (45-117); ALT/SGPT 19 U/L (12-78); AST/SGOT 17 U/L (15-37); BLOOD UREA NITROGEN 13 mg/dl (7-18); CALCIUM 8.7 mg/dl (8.5-10.1); CARBON DIOXIDE 32 mmol/L (21-32); CREATININE 1.86 mg/dl (0.60-1.40); GLUCOSE 98 mg/dl (70-99); POTASSIUM 4.2 mmol/L (3.5-5.1); SODIUM 140 mmol/L (136-145); TOTAL PROTEIN 6.9 gm/dl (6.4-8.2)
[2017-11-30 19:23] VITALS: BP 145/100; PULSE 74; O2SAT 99
== END 2017-11-30 19:37 | disposition home or self-care (01) ==
LOC: C.EDB 16:19
DX: R42 Dizziness and giddiness (principal); E86.0 Dehydration; Z79.01 Long term (current) use of anticoagulants; I48.91 Unspecified atrial fibrillation; I12.9 Hypertensive chronic kidney disease with stage 1 through stage 4 chronic kidney disease, or unspecified chronic kidney disease; N18.3 Chronic kidney disease, stage 3 (moderate); J44.9 Chronic obstructive pulmonary disease, unspecified; Z88.1 Allergy status to other antibiotic agents; Z83.3 Family history of diabetes mellitus; Z82.49 Family history of ischemic heart disease and other diseases of the circulatory system; Z84.1 Family history of disorders of kidney and ureter; Z99.81 Dependence on supplemental oxygen; Z87.01 Personal history of pneumonia (recurrent); Z79.899 Other long term (current) drug therapy

== ENCOUNTER 2018-03-03 07:07 | Emergency (ER) | payer OTHER ==
[~2018-03-03] VITALS: Ht 182.9 cm; Wt 114.5 kg
[~2018-03-03 07:07] MED LIST changes: -LVQ750 PO
[2018-03-03 07:21] VITALS: TEMP 36.4; Ht 182.9 cm; Wt 114.5 kg
[2018-03-03 07:34] VITALS: O2SAT 94
[2018-03-03 07:47] LABS: BASO % 0.7 %; BASO ABS # 0.05 K/uL (0-0.2); EOS % 2.8 %; EOS ABS # 0.21 K/uL (0-0.5); HEMATOCRIT 36.4 % (42-52); HEMOGLOBIN 11.8 g/dL (14.0-18.0); IG# 0.02 K/uL (0.00-0.02); LYMPH % 19.5 %; LYMPH ABS # 1.48 K/uL (1.2-3.4); MEAN CORPUSCULAR HEMOGLOBIN 29.5 pg (25-34); MEAN CORPUSCULAR HGB CONC 32.4 g/dl (32-36); MEAN PLATELET VOLUME 10.2 fL (7.4-10.4); MONO % 4.6 %; MONO ABS # 0.35 K/uL (0.11-0.59); NEUT % 72.1 %; NEUT ABS # 5.49 K/uL (1.4-6.5); PLATELET COUNT 136 K/uL (130-400); RED CELL DISTRIBUTION WIDTH CV 15.6 % (11.5-14.5); RED CELL DISTRIBUTION WIDTH SD 51.5 fL (36.4-46.3)
[2018-03-03 07:51] LABS: ISTAT CREATININE 1.7 mg/dl (0.6-1.3); ISTAT IONIZED CALCIUM 1.25 mmol/l (1.12-1.32); ISTAT POTASSIUM 4.3 mEq/L (3.3-5.0)
[2018-03-03] MEDS ORDERED: LISI-729 PO (07:52)
[2018-03-03 07:55] LABS: INR 2.5 (0.9-1.1)
[2018-03-03] MEDS ORDERED: SODIUM CHLORIDE 0.9% 1000ML 1,000 ML IV STA (07:58)
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
[2018-03-03 08:00] LABS: ALKALINE PHOSPHATASE 67 U/L (45-117); ALT/SGPT 14 U/L (12-78); AST/SGOT 14 U/L (15-37); BLOOD UREA NITROGEN 14 mg/dl (7-18); CALCIUM 9.1 mg/dl (8.5-10.1); CARBON DIOXIDE 31 mmol/L (21-32); CREATININE 1.73 mg/dl (0.60-1.40); GLUCOSE 124 mg/dl (70-99); LIPASE 147 U/L (73-393); POTASSIUM 4.2 mmol/L (3.5-5.1); SODIUM 144 mmol/L (136-145); TOTAL PROTEIN 6.5 gm/dl (6.4-8.2)
[2018-03-03] MEDS ORDERED: GABA600T PO (08:00)
--- NOTE | 2018-03-03 08:07 | DIAGNOSTIC IMAGING REPORT ---
L ANKLE MIN 3 VIEWS ROUTINE CLINICAL HISTORY: Left ankle pain status post trauma COMPARISON: None. DISCUSSION: Vascular calcifications are visualized. There are mild to moderate degenerative changes present the ankle. No acute fractures or dislocations are visualized. IMPRESSION: Degenerative change. No acute fractures or dislocations identified. Electronically signed by: Renaldo Meneses M.D. 03/03/2018 8:05 AM Dictated Date/Time: 03/03/2018 8:05 AM
--- NOTE | 2018-03-03 08:08 | DIAGNOSTIC IMAGING REPORT ---
L TIBIA/FIBULA 2 VIEWS ROUTINE CLINICAL HISTORY: Left lower leg pain status post trauma COMPARISON: None. DISCUSSION: There are vascular calcifications present. There are degenerative changes within the knee and ankle. No fractures are visualized. IMPRESSION: No fractures identified. Electronically signed by: Renaldo Meneses M.D. 03/03/2018 8:06 AM Dictated Date/Time: 03/03/2018 8:06 AM
[2018-03-03] MEDS ORDERED: FENTANYL CITRATE INJ 50 MCG/1 ML 2 ML VIAL IV STA (08:19)
--- NOTE | 2018-03-03 08:39 | DIAGNOSTIC IMAGING REPORT ---
CT OF THE CERVICAL SPINE CLINICAL HISTORY: Neck pain status post trauma COMPARISON STUDY: No previous studies for comparison. CT DOSE: TECHNIQUE: CT scan of the cervical spine was performed from the skull base to the thoracic inlet. Images are reviewed in the axial, sagittal, and coronal planes. IV contrast was not administered for this examination. A dose lowering technique was utilized adhering to the principles of ALARA. FINDINGS: The visualized portions of the lung apices reveal no evidence of pneumothorax. The prevertebral soft tissues are normal. No fractures or subluxations are visualized. There are multilevel degenerative changes IMPRESSION: No evidence of acute fracture or traumatic subluxation. Electronically signed by: Renaldo Meneses M.D. 03/03/2018 8:38 AM Dictated Date/Time: 03/03/2018 8:34 AM
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
--- NOTE | 2018-03-03 08:52 | DIAGNOSTIC IMAGING REPORT ---
CT ABD/PELVIS IV AND ORAL CONT CLINICAL HISTORY: Abdominal pain status post trauma COMPARISON STUDY: None. TECHNIQUE: Following the IV administration of 116 mL of Optiray-320, CT scan of the abdomen and pelvis was performed from the lung bases to the proximal femurs. Images are reviewed in the axial, sagittal, and coronal planes. IV contrast was administered without complication. A dose lowering technique was utilized adhering to the principles of ALARA. CT DOSE: FINDINGS: Lower chest: There is volume loss in left hemithorax with left lower lobe bronchiectatic changes. Liver: The contrast-enhanced liver is normal in size, contour, and attenuation. There is no intrahepatic biliary ductal dilatation. The hepatic veins and portal veins are patent. Gallbladder: Cholelithiasis Spleen: Normal in size and attenuation. 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 This remains unchanged from an MRI study performed in April 2006. Kidneys: There are bilateral renal cysts the largest of which measures 5.9 cm and the right and 5.7 cm and the left. There is an enlarging indeterminate 24 mm lesion arising from the lower pole the left kidney. This exceeds water attenuation and is therefore indeterminate. An MRI is recommended in follow-up to differentiate a hyperdense cyst from a solid renal neoplasm. There is a small amount of fluid within the left perinephric space. There is irregularity of the lower pole left renal cyst. This may indicate cyst rupture. If deemed clinically indicated, delayed imaging could be obtained to exclude a urinoma. Bowel: There are no transition zones indicate bowel obstruction. There is no acute diverticulitis. There are scattered colonic diverticula. The appendix appears normal. Peritoneum: There is no free air. There is a small amount of fluid within the left perirenal space. Vasculature: The abdominal aorta is normal in course and caliber. Adenopathy: None. Pelvic viscera: The bladder, and pelvic viscera are unremarkable. Skeletal structures: No destructive osseous lesions are seen. No fractures are visualized. IMPRESSION: 1. Left-sided perinephric fluid, possibly secondary to a ruptured renal cyst. Delayed imaging could be obtained in follow-up to exclude a urinoma 2. Bilateral renal cysts 3. Indeterminate 24 mm lesion arising from the lower pole the left kidney. A nonemergent MRI is recommended in follow-up to differentiate a solid renal neoplasm from a hyperdense cyst 4. Cholelithiasis 5. Stable 2 cm left adrenal nodule 6. 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 No evidence of hepatic or splenic injury Electronically signed by: Renaldo Meneses M.D. 03/03/2018 8:51 AM Dictated Date/Time: 03/03/2018 8:38 AM
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
[2018-03-03] MEDS ORDERED: DIPHTHERIA/TETANUS/PERTUSSIS 0.5 ML SYR/VIAL IM. ONE (09:45)
[2018-03-03] MEDS ORDERED: ONDANSETRON INJ 2 MG/ML 2 ML VIAL ONE (09:57)
[2018-03-03] MEDS ORDERED: ACETAMINOPHEN 325 MG TAB ONE (12:42)
[2018-03-03] MEDS ORDERED: METOPROLOL TARTRATE 100 MG TAB PO STA (12:57)
[2018-03-03] MEDS ORDERED: METOPROLOL TARTRATE 50 MG TAB ONE (13:11)
[2018-03-03] MEDS ORDERED: CIPROFLOXACIN HCL 0.3% OP SOLN 2.5 ML BTL OP STA (14:27)
[2018-03-03] MEDS ORDERED: OFLOXACIN 0.3% OP SOLN 5 ML BTL OP STA (14:41)
[2018-03-03 16:04] VITALS: BP 166/107; PULSE 83; O2SAT 100
--- NOTE | 2018-03-03 16:09 | EMERGENCY ROOM VISIT NOTE ---
ED Visit Note Slit Lamp Examination was performed of the left and right eye(s). The affected eye(s) were stained with Fluorescein stain to precipitate adequate visualization of any conjunctival/scleral excoriations or ulcers. The patient's face was comfortably rested on the chin guard of the slit lamp apparatus. The lights were dimmed and the affected eye(s) were thoroughly examined under microscopy using the blue light. In the right eye no uptake was present however in the left eye there is superficial punctate regions in the patient's superior lateral corneal region just superior and lateral to the central axis of vision. Additionally, the eye(s) were examined under microscopy using the regular light. Close examination revealed what appeared to be superficial punctate abrasions. No retained foreign body or glass in either eye. Patient tolerated the procedure well and no complications were met.
== END 2018-03-03 16:04 | disposition home or self-care (01) ==
LOC: EDBD 07:07 → C.EDB 07:10
DX: S05.01XA Injury of conjunctiva and corneal abrasion without foreign body, right eye, initial encounter (principal); S00.83XA Contusion of other part of head, initial encounter; V89.2XXA Person injured in unspecified motor-vehicle accident, traffic, initial encounter; M25.572 Pain in left ankle and joints of left foot; J44.9 Chronic obstructive pulmonary disease, unspecified; Z99.81 Dependence on supplemental oxygen; Z79.01 Long term (current) use of anticoagulants; Z79.899 Other long term (current) drug therapy; I48.91 Unspecified atrial fibrillation; Z87.01 Personal history of pneumonia (recurrent); I12.9 Hypertensive chronic kidney disease with stage 1 through stage 4 chronic kidney disease, or unspecified chronic kidney disease; N18.3 Chronic kidney disease, stage 3 (moderate); Z88.1 Allergy status to other antibiotic agents; Z83.3 Family history of diabetes mellitus; Z84.1 Family history of disorders of kidney and ureter; Z82.49 Family history of ischemic heart disease and other diseases of the circulatory system; Z23 Encounter for immunization

== ENCOUNTER 2019-11-09 23:12 | Observation (INO) ==
[2019-11-09] MEDS ORDERED: ALBUT/IPRATROP 3MG/0.5MG NEB 3 ML VIAL INH STA (23:24)
[2019-11-09 23:52] LABS: Base Excess VBG 6.1 mEq/L; HCO3 VBG 33 mmol/L; PCO2 VBG 63 mmHg (38-50); PO2 VBG 36 mmHg; pH VBG 7.34 (7.36-7.41)
[2019-11-09 23:53] LABS: Oxygen Saturation VBG > 60.0 %
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
[2019-11-10 00:02] LABS: Basophils # (auto) 0.03 K/uL (0-0.2); Basophils % (auto) 0.4 %; Eosinophils % (auto) 2.4 %; Hematocrit (blood only) 31.6 % (42-52); Hemoglobin 10.3 g/dL (14.0-18.0); Immature Granulocytes # (auto) 0.01 K/uL (0.00-0.02); Immature Granulocytes % (auto) 0.1 %; Lymphocytes # (auto) 1.03 K/uL (1.2-3.4); Lymphocytes % (auto) 12.6 %; Mean Corpuscular Hemoglobin 30.4 pg (25-34); Mean Corpuscular Hgb Conc 32.6 g/dL (32-36); Mean Corpuscular Volume 93.2 fL (80-100); Monocytes # (auto) 0.42 K/uL (0.11-0.59); Monocytes % (auto) 5.1 %; Neutrophils # (auto) 6.51 K/uL (1.4-6.5); Neutrophils % (auto) 79.4 %; Platelet Count 147 K/uL (130-400); RDW Coefficient of Variation 15.9 % (11.5-14.5); RDW Standard Deviation 52.6 fL (36.4-46.3); Red Blood Count 3.39 M/uL (4.7-6.1)
[2019-11-10 00:20] LABS: INR 1.3 (0.9-1.1); Partial Thromboplastin Ratio 1.2; Partial Thromboplastin Time 32.2 Seconds (21.0-31.0); Prothrombin Time 13.5 Seconds (9.0-12.0)
[2019-11-10 00:23] LABS: Alanine Aminotransferase 12 U/L (12-78); Albumin Level 2.8 gm/dl (3.4-5.0); Aspartate Aminotransferase 11 U/L (15-37); BUN Creatinine Ratio 9.3 (10-20); Blood Urea Nitrogen 14 mg/dl (7-18); Calcium 8.3 mg/dl (8.5-10.1); Carbon Dioxide 34 mmol/L (21-32); Chloride 105 mmol/L (98-107); Creatinine Clr Calc Pharmacy 50.7 ml/min; Est GFR (African American) 49.1; Est GFR (Non-African American) 42.4; Glucose 124 mg/dl (70-99); Potassium 3.5 mmol/L (3.5-5.1); Sodium 142 mmol/L (136-145)
[2019-11-10 00:29] LABS: Albumin Globulin Ratio 0.8 (0.9-2); Alkaline Phosphatase 73 U/L (45-117); Creatine Kinase MB 3.1 ng/ml (0.5-3.6); Globulin 3.7 gm/dl (2.5-4.0); NT Pro B Type Natriuretic Pept 7222 pg/ml (0-1800); Total Protein 6.5 gm/dl (6.4-8.2); Troponin I < 0.015 ng/ml (0-0.045)
[2019-11-10] MEDS ORDERED: FUROSEMIDE 40 MG/4 ML VIAL IV STA (00:37)
--- NOTE | 2019-11-10 01:34 | History & Physical Report ---
Date of Service November 10, 2019 Assessment & Plan (1) Acute pulmonary edema: Mr. Cho is an 79-year-old male with a past medical history of adrenal adenoma, atrial fibrillation, anemia, CKD 3, COPD, heart failure with preserved ejection fraction last echo 2018, hyperlipidemia, hypertension, restrictive lung disease, and right vision decreased acuity who presents for 1 week of increased shortness of breath in the mornings and evenings. Acute on chronic hypoxic respiratory failure Suspect 2/2 heart failure exacerbation Patient on 2 L baseline oxygen, increased weakness and desaturations with ambulation and last week at home Chest x-ray with persistent left-sided effusion and bilateral congestion concerning for pulmonary edema No leukocytosis, afebrile Patient received Lasix 40 mg IV in ED Continue Lasix 20 mg IV twice daily x3 doses Pt reports of 45 pounds of weight loss, and diffuse haziness on chest x-ray. Pending CTchest Patient reports he has had a history of multiple pneumonias following thoracotomy for removal of benign cyst. He endorses 2 episodes per week of night sweats, but no fevers and has not traveled or, to contact with anyone who is ill. Pro-Branden ordered. Heart failure with preserved ejection fraction Continue metoprolol 100 mg twice daily BALJIT discontinued due to orthostatic hypotension with falls Last echo 2018 showed preserved ejection fraction BNP acutely elevated to 7K, repeat echo pending COPD Patient with mixed obstructive/restrictive lung disease, followed by Dr. heath with pulmonology Continue budesonideformoterol inhaler DuoNebs as needed Flutter valve, incentive spirometry while awake Patient has chronic left lower lobe volume loss Unclear etiology of his COPD. 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 This has been recently decreased due to patient's lightheadedness with good effect per patient BPH s/p TURP Continue bethanechol Continue tamsulosin No urinary symptoms per patient at time of admission Deconditioning Concerns expressed at prior hospitalizations for deconditioning and weakness wi th falls Appears to have improved somewhat with outpatient medication adjustments including decreasing gabapentin and eliminating his BALJIT PT/OT while inpatient Diet: Regular, consistent carb DVT prophylaxis: On Doac CODE STATUS: DNR/DNI Disposition: Admit to med/surge with telemetry (2) Adrenal cortical adenoma: (3) Anticoagulant long-term use: (4) Atrial fibrillation: (5) Chronic obstructive pulmonary disease: (6) Chronic kidney disease, stage III (moderate): (7) Heart failure: (8) Hyperlipidemia: (9) Hypertension: (10) Impaired fasting glucose: (11) Peripheral neuropathy: (12) BPH (benign prostatic hyperplasia): (13) Chronic respiratory failure with hypoxia: (14) COPD (chronic obstructive pulmonary disease): History of Present Illness Chief Complaint: Shortness of breath Primary Care Provider: Luis Colmenares MD Mr. Cho is an 79-year-old male with a past medical history of adrenal adenoma, atrial fibrillation, anemia, CKD 3, COPD, heart failure with preserved ejection fraction last echo 2017, hyperlipidemia, hypertension, restrictive lung disease, and right vision decreased acuity who presents for 1 week of increased shortness of breath in the mornings and evenings. Ms. Cho reports that for several weeks he has felt weak and slightly dizzy, which is worsened by standing up. He saw his registered midwife and planer off bearer last month, and had his lisinopril discontinued. Following this his lighthe adedness and dizziness while standing greatly improved. He was feeling mostly well, although persistently slightly fatigued, until about 1 week ago when he started developing increased shortness of breath most prominent in the mornings and evenings. He endorses a cough which is minimally put productive for white sputum. He has not had any chest pain, chest pressure, palpitations, or new swelling in his legs. He feels like his shortness of breath improves once he is sitting or standing up, but does not require a pillow or to sleep propped up. He endorses that he has had a decreased appetite for many weeks, and nearly 45 pounds weight loss since June. 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 He endorses soaking night sweats once to twice a week without fevers or chills for several weeks. He has not noticed any other new or changing symptoms. He feels like he is able to ambulate okay with a walker. Medical history: Reviewed, as above Medication history: Reviewed, as above. Recent change of discontinuing lisinopril in the last month. Surgical history: Reviewed in EMR Allergies: GI upset to ciprofloxacin Social history: He lives in his home with his of 63 years Rama. She would be his decision maker if required. He does not drink, has never used tobacco products, and does not use recreational drugs. CODE STATUS: DNR/DNI. Discussed with patient. Allergies Allergy/AdvReac Type Severity Reaction Status Date / Time Cipro AdvReac Unknown GI UPSET Verified 03/03/18 07:57 ciprofloxacin AdvReac Unknown GI UPSET Verified 10/04/19 16:14 Home Medications Home Medications Medication Instructions Recorded Confirmed Type Refresh Liquigel 1 drp OPHTHALMIC (EYE) Q4 PRN 04/14/18 11/09/19 History cholecalciferol (vitamin D3) 2,000 unit PO DAILY 04/14/18 11/09/19 History [Vitamin D3] furosemide [Lasix] 20 mg PO DAILY PRN 04/14/18 11/09/19 History ipratropium bromide 1 unit INHALATION TID 04/14/18 11/09/19 History sennosides-docusate sodium [Senna 2 tab PO HS PRN 04/14/18 11/09/19 History with Docusate Sodium] trazodone 50 mg tablet 50 mg PO HS #90 tab 05/03/19 11/09/19 Rx tafluprost (PF) 0.0015 % eye drops 1 drops OP HS ea 05/13/19 11/09/19 History in a dropperette acetaminophen 650 mg 1,300 mg PO DAILY PRN tab 05/16/19 11/09/19 History tablet,extended release melatonin 5 mg tablet 10 mg PO HS tab 06/01/19 11/09/19 History metoprolol tartrate 100 mg tablet 100 mg PO Q12 #180 tab 06/20/19 11/09/19 Rx apixaban 2.5 mg tablet 2.5 mg PO BID #180 tab 06/23/19 11/09/19 Rx budesonide-formoterol HFA 160 2 puffs INH Q12H #10.2 gm 06/30/19 11/09/19 Rx mcg-4.5 mcg/actuation aerosol inhaler gabapentin 600 mg tablet 600 mg PO .COMPLEX #135 tab 07/01/19 11/09/19 Rx montelukast 10 mg tablet 10 mg PO PM #30 tab 08/08/19 11/09/19 Rx bethanechol chloride 50 mg tablet 50 mg PO BID #180 tab 10/19/19 11/09/19 Rx tamsulosin 0.4 mg capsule 0.4 mg PO DAILY #90 cap 10/19/19 11/09/19 Rx amlodipine [Norvasc] 5 mg PO QAM 30 Days #30 tab 11/11/19 Rx Past Med/Surg History Medical History BPH (benign prostatic hyperplasia) (Chronic) Chronic kidney disease, stage III (moderate) (Ruled-out) Chronic respiratory failure with hypoxia (Chronic) COPD (chronic obstructive pulmonary disease) (Chronic) H/O long-term (current) use of anticoagulants (Ruled-out) Hypertension (Ruled-out) Paroxysmal atrial fibrillation (Ruled-out) Recurrent falls Restrictive lung disease (Ruled-out) Vitamin D deficiency (Chronic) Surgical History Cataract extraction status H/O pneumonectomy (Resolved) History of inguinal hernia repair, bilateral S/P pneumonectomy LLL resection - [facility] S/P TURP Family History Sister Stroke Mother , age 76 Myocardial infarction Father , age 93 from fracture of neck due to MVA Cervical spine fracture Other No pertinent family history Social History Preferred Language: Honduran Communication Ability: Effective Fitness Technician Required: No Beliefs That Will Affect Care: None marital status: Current Living Situation: Spouse Current Living Situation Comment: lives with in [place] current occupational status: retired other: 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 Endorses intermittent night sweats over the past few weeks. Endorses weight loss. Eyes: Dorsal chronic decreased visual acuity in his right eye which has not changed. ENT: Denies ear pain, sore throat, sinus pain Cardiovascular: Denies Chest pain, chest pressure, palpitations, extremity swelling Respiratory: see HPI Gastrointestinal: Denies abdominal pain, nausea, vomiting, constipation, diarrhea. Endorses absent appetite. Genitourinary: Denies pain with urination, urinary urgency, urinary frequency. No increasing urinary hesitancy or difficulty voiding as long as he takes his medications. Musculoskeletal: Denies focal weakness, muscle aches/pain, joint aches/pain Integumentary:Denies rash, lesions. Endorses easy bruising while on Doac. Neurological: Denies headache, focal weakness. 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 Physical Exam Physical Exam: General: A&Ox3. NAD. Cooperative. Appears fatigued but nontoxic. HEENT: Atraumatic, normocephalic. JVD slightly above the level of the clavicle. Pulm: Diminished air movement, mild scattered and expiratory wheezes. Crackles in the lower lung contreras bilaterally. No increased work of breathing. No respiratory distress. On 2 L nasal cannula. Cardiac: RRR, -mrg. Radial pulses intact and symmetrical. Abdominal: Nontender, softly distended/obese. BS present. CN II: Visual contreras are full to confrontation. Pupils are equal and react to light and accomidation. Visual acuity grossly intact, decreased in right compared to left eye. CN III, IV, : At primary gaze, there is no eye deviation. EoM intact without nystagmus. No visual field cuts. CN V: Facial sensation is intact to soft touch in all 3 divisions bilaterally. CN VII: No facial asymmetry, full strength to eyebrow raise, smile, eye close, and cheek puff. CN VII: Hearing is grossly intact. CN IX, X: Palate elevates symmetrically. Phonation is normal without dysarthria. CN XI: Head turning and shoulder shrug are intact CN XII: Tongue protrudes midline. Sensory: Light touch, pinprick intact in upper and low extremities without deficit or asymmetry. Strength: RUE: Shoulder flexion/extension/internal rotation/external rotation, elbow flexion/extension, finger flexion/extension, vp account director strength, interosseous 5/5 LUE: Shoulder flexion/extension/internal rotation/external rotation, elbow flexion/extension, finger flexion/extension, vp account director strength, interosseous 5/5 RLE: Hip flexion, knee flexion/extension, ankle plantar flexion/dorsiflexion 5/5 LLE: Hip flexion, knee flexion/extension, ankle plantar flexion/dorsiflexion 5/5 Results & Data Results & Data ([facility]) Vital Signs (Past 12 Hours) Vital Signs Temp Pulse Pulse Resp BP Pulse Ox 11/10/19 01:13 75 17 175/93 H 93 11/10/19 00:49 75 19 184/113 H 94 11/10/19 00:00 75 22 173/99 H 92 11/09/19 23:39 85 21 95 11/09/19 23:33 36.9 C 87 18 193/94 H 94 11/09/19 23:24 87 18 94 Code Status & VTE Plan VTE Prophylaxis Plan VTE Prophylaxis will be ordered: Yes Supervising Physician Co-Signing Physician Notes Attending addendum: I have physically seen this patient, have supervised the medical residents activities, and agree with the H&P unless as otherwise noted. Assessment and Plan: Acute on chronic respiratory failure with hypoxia- Combination of heart failure exacerbation with COPD. Acute CHF exacerbation/left-sided pleural effusion/generalized pulmonary edema- The patient will be admitted to telemetry for serial cardiac enzymes, serial EKG's, cardiac rhythm monitoring and a 2-D echocardiogram with Dopplers. IV Lasix. May benefit from IV albumin as well. Follow response and adjust dosing accordingly. Continue metoprolol tartrate 100 mg p.o. twice daily with hold parameters. COPD/mixed obstructive and restrictive lung disease. Continue outpatient inhalers. DuoNebs every 4 hours as needed. Remainder orders notations as noted. Resident Activity Tracking Resident Involvement: Resident Care Provided Care Provided: Adult [facility] Medicine (1) BPH (benign prostatic hyperplasia) Lower urinary tract symptom detail: urinary hesitancy Lower urinary tract symptom presence: symptoms present Qualified Code(s): N40.1 - Benign prostatic hyperplasia with lower urinary tract symptoms; R39.11 - Hesitancy of micturition (2) Chronic obstructive pulmonary disease COPD type: unspecified COPD Qualified Code(s): J44.9 - Chronic obstructive pulmonary disease, unspecified
[2019-11-10] MEDS ORDERED: ONDANSETRON INJ 2 MG/ML 2 ML VIAL IV PRN (03:17)
[2019-11-10] MEDS ORDERED: ACETAMINOPHEN 325 MG TAB PO PRN (03:17)
[2019-11-10] MEDS ORDERED: GLUCAGON FOR INJ 1 MG VIAL SQ PRN (03:17)
[2019-11-10] MEDS ORDERED: DEXTROSE 50% 50 ML SYRINGE IV PRN (03:17)
[2019-11-10] MEDS ORDERED: GLUCOSE 10 TABS/TUBE PO PRN (03:17)
[2019-11-10] MEDS ORDERED: CARBOHYDRATES FOR HYPOGLYCEMIA PO PRN (03:17)
[2019-11-10] MEDS ORDERED: DOCUSATE SODIUM/SENNA 50/8.6MG TAB PO PRN (03:17)
[2019-11-10] MEDS ORDERED: GLUCOSE 40% GEL 15 GM TUBE PO PRN (03:17)
[2019-11-10 04:12] LABS: BUN Creatinine Ratio 9.3 (10-20); Calcium 8.7 mg/dl (8.5-10.1); Creatinine Clr Calc Pharmacy 51.1 ml/min; Est GFR (African American) 49.5; Est GFR (Non-African American) 42.7; Potassium 3.2 mmol/L (3.5-5.1)
[2019-11-10 05:58] LABS: Estimated Average Glucose 103 mg/dl; Hemoglobin A1C 5.2 % (4.5-5.6)
--- NOTE | 2019-11-10 07:08 | CT Scan Report ---
CT chest wo con CLINICAL HISTORY: Shortness of breath. Edema. 45 pound weight loss.. COMPARISON STUDY: Chest x-ray dated 11/09/2019, CT scan dated 03/03/2018 CT DOSE: 598.07 mGy.cm TECHNIQUE: CT of the thorax was performed from the thoracic inlet to the lung bases. Images are revi ewed in the axial, sagittal, and coronal planes. IV contrast was not administered for this examinatio n. A dose lowering technique was utilized adhering to the principles of ALARA. FINDINGS: Thyroid: Imaged portions of the thyroid gland are normal in appearance. Thoracic aorta: There is mild dilatation of the ascending thoracic aorta which measures 41 mm the lev el of the main pulmonary artery. Heart: The heart is enlarged. There is trace pericardial fluid. There are coronary artery calcificati ons. Lungs and pleural spaces: There is a [id number] right pleural effusion. There is mild septal e usha. There are dependent airspace opacities, likely atelectatic. Postsurgical changes are present wi thin the left lower lobe. There is apical scarring. There is a new 4 mm left apical pulmonary nodule. Mediastinum: There is progressive mediastinal lymphadenopathy. An index right paratracheal lymph node measures 21 mm in short axis. This previously measured 14 mm. Kori: There are hilar calcifications. Hilar nodes are difficult to assess without intravenous contras t Axilla: There is no evidence of pathologic axillary lymphadenopathy Upper abdomen: There is a 2 cm left adrenal adenoma. There is cholelithiasis. Skeletal structures: There are no lytic or blastic osseous lesions. IMPRESSION: 1. Progressive mediastinal lymphadenopathy 2. Mild dilatation of the ascending thoracic aorta 3. Cardiomegaly, coronary artery calcifications, yiigv-pb-[id number] right pleural effusion, and pulmon johnnie septal edema. 4. Postsurgical changes within the left lower lobe. Dependent airspace opacity statistically atelecta tic. 5. Left adrenal adenoma 6. Cholelithiasis 7. 4 mm left apical pulmonary nodule ACT 112: Negative or not required by law. Electronically signed by: Renaldo Meneses M.D. 11/10/2019 7:06 AM
--- NOTE | 2019-11-10 07:11 | XRay Report ---
XR chest 1V portable CLINICAL HISTORY: Dyspnea COMPARISON STUDY: 09/06/2019 FINDINGS: There is diffuse elevation of interstitium, likely secondary to congestive failure/fluid ov erload. Interstitial inflammatory processes could appear similar. There is chronic left diaphragmatic scarring. There are chronic left basilar opacities. A small subpulmonic right pleural effusion canno t be excluded.[ IMPRESSION: 1. Diffuse elevation of the interstitium, likely secondary to congestive failure/fluid overload. Clin ical and radiographic follow-up is recommended. ACT 112: Negative or not required by law. Electronically signed by: Renaldo Meneses M.D. 11/10/2019 7:10 AM
[2019-11-10] MEDS: FLUTICASONE/VILANTEROL 200/25MCG 14 PUFFS/INHALER INH SCH (08:07)
[2019-11-10] MEDS: TAMSULOSIN HCL 0.4 MG CAP PO SCH ×2 (08:08→10:38)
[2019-11-10] MEDS: FUROSEMIDE 20 MG in SYRINGE 0 ML IV SCH ×2 (08:08→17:04)
[2019-11-10] MEDS: APIXABAN 2.5 MG TAB PO SCH ×2 (08:08→20:07)
[2019-11-10] MEDS: METOPROLOL TARTRATE 100 MG TAB PO SCH ×2 (08:08→20:07)
[2019-11-10] MEDS: GABAPENTIN 600 MG TAB PO SCH ×2 (08:09→20:06)
[2019-11-10] MEDS: BETHANECHOL CHL 25 MG TAB PO SCH ×2 (08:09→20:08)
[2019-11-10] MEDS: INSULIN ASPART 100 UNITS/ML 3 ML PEN SC SCH ×4 (08:15→20:11)
[2019-11-10] MEDS ORDERED: FUROSEMIDE 40 MG/4 ML VIAL IV SCH (09:00)
[2019-11-10] MEDS ORDERED: Nursing to Pharmacy Communication ONE (09:47)
--- NOTE | 2019-11-10 13:35 | XCELERA ---
[id number]
[2019-11-10] MEDS ORDERED: AMLODIPINE BESYLATE 5 MG TAB PO ONE (14:36)
--- NOTE | 2019-11-10 14:50 | Electrocardiogram Report ---
Test Reason : Blood Pressure : / mmHG Vent. Rate : 084 BPM Atrial Rate : 097 BPM P-R Int : 000 ms QRS Dur : 106 ms QT Int : 398 ms P-R-T Axes : 000 023 -03 degrees QTc Int : 470 ms Atrial fibrillation Nonspecific ST abnormality Abnormal ECG When compared with ECG of 14-APR-2018 16:03, No significant change was found Confirmed by Shawn Loving ([id number]) on 11/10/2019 2:49:50 PM Referred By: REFERRED SELF Confirmed By:Shawn Loving
[2019-11-10] MEDS: POTASSIUM CHLORIDE 20 MEQ TABCR PO SCH (17:05)
[2019-11-10] MEDS ORDERED: HydrALAZINE HCL 20 MG/ML VIAL IV PRN (17:51)
--- NOTE | 2019-11-10 17:54 | History & Physical Bridge Note ---
Date of Service November 10, 2019 History & Physical Bridge Note I have examined the patient, reviewed the History & Physical and in the interval since the performance of the History & Physical I have noted the following changes of clinical significance: patient diuresing well, negative over 2 liters of fluid BP continues to be elevated, 180-190 systolic, this is higher than normal for the patient, added a dose of Norvasc 5mg this afternoon will give another dose in the morning, use Hydralazine PRN patient wants to go home tomorrow, he is on his baseline oxygen feeling much better discussed that he can likely go will need to complete medicare form to change him to observation as he was admitted after midnight so technically he will only be here one midnight
[2019-11-10] MEDS ORDERED: MELATONIN 3 MG TAB PO SCH (21:00)
[2019-11-10] MEDS ORDERED: TAMSULOSIN HCL 0.4 MG CAP PO SCH (21:00)
[2019-11-10] MEDS ORDERED: TRAZODONE HCL 50 MG TAB PO SCH (21:00)
[2019-11-10] MEDS ORDERED: MONTELUKAST SODIUM 10 MG TABLET PO SCH (21:00)
[2019-11-11] MEDS: POTASSIUM CHLORIDE 20 MEQ TABCR PO SCH ×2 (07:51→12:03)
[2019-11-11] MEDS: FLUTICASONE/VILANTEROL 200/25MCG 14 PUFFS/INHALER INH SCH (08:09)
[2019-11-11] MEDS: METOPROLOL TARTRATE 100 MG TAB PO SCH (08:09)
[2019-11-11] MEDS: APIXABAN 2.5 MG TAB PO SCH (08:09)
[2019-11-11] MEDS: GABAPENTIN 600 MG TAB PO SCH (08:10)
[2019-11-11] MEDS: BETHANECHOL CHL 25 MG TAB PO SCH (08:11)
[2019-11-11] MEDS: FUROSEMIDE 20 MG in SYRINGE 0 ML IV SCH (08:11)
[2019-11-11] MEDS: INSULIN ASPART 100 UNITS/ML 3 ML PEN SC SCH ×2 (08:12→12:07)
--- NOTE | 2019-11-11 08:41 | Discharge Summary ---
Date of Service November 11, 2019 Admission HPI Per Admitting Provider Mr. Cho is an 79-year-old male with a past medical history of adrenal adenoma, atrial fibrillation, anemia, CKD 3, COPD, heart failure with preserved ejection fraction last echo 2017, hyperlipidemia, hypertension, restrictive lung disease, and right vision decreased acuity who presents for 1 week of increased shortness of breath in the mornings and evenings. Ms. Cho reports that for several weeks he has felt weak and slightly dizzy, which is worsened by standing up. 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 Following this his lightheadedness and dizziness while standing greatly improved. He was feeling mostly well, although persistently slightly fatigued, until about 1 week ago when he started developing increased shortness of breath most prominent in the mornings and evenings. He endorses a cough which is minimally put productive for white sputum. He has not had any chest pain, chest pressure, palpitations, or new swelling in his legs. He feels like his shortness of breath improves once he is sitting or standing up, but does not require a pillow or to sleep propped up. He endorses that he has had a decreased appetite for many weeks, and nearly 45 pounds weight loss since June. 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 He endorses soaking night sweats once to twice a week without fevers or chills for several weeks. He has not noticed any other new or changing symptoms. He feels like he is able to ambulate okay with a walker. Medical history: Reviewed, as above Medication history: Reviewed, as above. Recent change of discontinuing lisinopril in the last month. Surgical history: Reviewed in EMR Allergies: GI upset to ciprofloxacin Social history: He lives in his home with his of 63 years Rama. She would be his decision maker if required. He does not drink, has never used tobacco products, and does not use recreational drugs. CODE STATUS: DNR/DNI. Discussed with patient. Principal Diagnosis acute on chronic heart failure with preserved EF Discharge Exam Constitutional WD/WN, vitals as above Eyes PERRL, conjunctivae normal, anicteric sclerae ENMT external ear and nose normal, oropharynx normal Neck trachea midline, no thyromegaly Respiratory normal respiratory effort, lungs clear to auscultation Cardiovascular Rate/Rhythm: regular rate and + irregularly irregular Heart Sounds: normal S1 and normal S2; no murmur Extremities: normal capillary refill and + edema (trace in left leg, chronic) Gastrointestinal (Abdomen) normal bowel sounds, soft, nontender, no hepatosplenomegaly Musculoskeletal no cyanosis or clubbing, extremities motor strength 5/5 Skin no rashes, warm and dry Neurologic patellar DTR's 2+ bilat, sensation intact and PERRL, EOMI, accommodation nl, no face palsy, no dysarthria Psychiatric A+Ox3, euthymic affect Lymphatic no cervical or axillary lymphadenopathy Discharge Data Allergies Allergy/AdvReac Type Severity Reaction Status Date / Time Cipro AdvReac Unknown GI UPSET Verified 03/03/18 07:57 ciprofloxacin AdvReac Unknown GI UPSET Verified 10/04/19 16:14 Consultations 11/10/19 00:39 ED Decision to Admit Stat Ordered Studies 11/10/19 01:50 CT chest wo con Urgent Hospital Course (1) Acute pulmonary edema: CODE 44: patient was initially a full admission but was admitted on 11/09 in the general foundry worker, after assessing him in the morning on 11/09 it became clear that he would likely be stable for discharge after only one midnight. he was changed to observation status because he would not meet the 2 midnight requirement. Mr. Cho is an 79-year-old male with a past medical history of adrenal adenoma, atrial fibrillation, anemia, CKD 3, COPD, heart failure with preserved ejection fraction last echo 2018, hyperlipidemia, hypertension, restrictive lung disease, and right vision decreased acuity who presents for 1 week of increased shortness of breath in the mornings and evenings. Acute on chronic Heart failure with preserved ejection fraction, likely due to poorly controlled blood pressure he is supposed to track his weight every morning but he and his admit that he does not do it good response to Lasix 40mg IV and then 20mg IV BID negative 3.5 liters breathing much better, back to baseline, lungs without rales Continue metoprolol 100 mg twice daily Last echo 2018 showed preserved ejection fraction repeat echo this admission shows preserved EF, no valve disease CHF instructions given, he knows to follow fluid restriction and to weigh himself EVERY morning called Amie VUONG with CHF clinic, she will call him next week for follow up Hypertension markedly elevated BP here, 180-190 systolic long review of the chart shows that his BP is always normal in the office started patient on Norvasc 5mg and then increased it to 10mg when BP still elevated discussed with patient, he says it is up when he is in the hospital reviewed prior admission, his BP was elevated his entire stay back in 2018, was then normal for follow up in the clinic will give script for Norvasc discussed with patient's , they have a BP meter at home, she will check his BP daily instructed her to give Norvasc 5mg if SBP > 150 and to call either PCP or Dr. Todd if BP persistently elevated should follow low sodium diet Chronic hypoxic respiratory failure Patient on 2 L baseline oxygen, he is stable on this amount of oxygen Chest x-ray with persistent left-sided effusion and bilateral congestion concerning for pulmonary edema at the time of admission Abnormal CT chest Pt reports of 45 pounds of weight loss, and diffuse haziness on chest x-ray. CT chest shows some progressive adenopathy, 4mm left upper lobe nodule Patient reports he has had a history of multiple pneumonias following thoracotomy for removal of benign cyst. He endorses 2 episodes per week of night sweats, but no fevers and has not traveled or, to contact with anyone who is ill patient with no interest in working up abnormal findings while he is here, he feels much better, breathing back to baseline, he wants to go home recommend follow up with Dr Padilla in a few weeks, consider REPEAT CT CHEST IN 3 MONTHS Atrial fibrillation rates controlled, on NOAC, follows with Dr. Todd COPD Patient with mixed obstructive/restrictive lung disease, followed by Dr. padilla with pulmonology Continue budesonideformoterol inhaler DuoNebs as needed Flutter valve, incentive spirometry while awake Patient has chronic left lower lobe volume loss Unclear etiology of his COPD. 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 This has been recently decreased due to patient's lightheadedness with good effect per patient BPH s/p TURP Continue bethanechol Continue tamsulosin No urinary symptoms per patient at time of admission Deconditioning Concerns expressed at prior hospitalizations for deconditioning and weakness with falls Appears to have improved somewhat with outpatient medication adjustments including decreasing gabapentin and eliminating his BALJIT PT/OT while inpatient, okay for discharge DVT prophylaxis: On Noac CODE STATUS: DNR/DNI Disposition: d/c to home (2) Adrenal cortical adenoma: (3) Anticoagulant long-term use: (4) Atrial fibrillation: (5) Chronic obstructive pulmonary disease: (6) Chronic kidney disease, stage III (moderate): (7) Heart failure: (8) Hyperlipidemia: (9) Hypertension: (10) Impaired fasting glucose: (11) Peripheral neuropathy: (12) BPH (benign prostatic hyperplasia): (13) Chronic respiratory failure with hypoxia: Total Time Total Time Spent Total Time Spent (In Minutes): 33 minutes Total Time Includes: Examination of the Patient, Discharge Planning, Medication Reconciliation, Communication With Other Providers (discussed with Amie VUONG) and Other (discussed with patient's ) Discharge Plan Discharge Items Patient Disposition: Home - Home Health Services Reason For Visit: SHORTNESS OF BREATH Discharge Diagnosis: Acute on chronic heart failure with preserved ejection fraction Chronic hypoxic respiratory failure Atrial fibrillation CKD Left adrenal adenoma, right apical lung nodule Condition on Discharge: Good Goals: check your weight EVERY morning monitor your blood pressure follow up closely with PCP follow up with Dr. Padilla, pulmonology Activity: Resume your previous activity Weightbearing: Full weightbearing Non-emergency contact: Primary Care Provider Call non-emergency contact if: you have any medication questions Follow-up/Referrals: Hola Colmenares MD [Primary Care Provider] - Amie Aguilar PA-C [Physician Research Software Engineer] - 11/18/19 10:30 am (THIS IS A VIRTUAL FOLLOW UP. WE WILL CALL YOU AT HOME AT THE ABOVE TIME FOR FOLLOW UP. PLEASE HAVE YOUR MEDICATIONS, DAILY WEIGHT LOG, AND ANY OTHER INFORMATION READILY AVAILABLE (BLOOD PRESSURE READINGS, QUESTIONS, ETC.). FAMILY MEMBERS/CARE GIVERS MAY BE PRESENT AT THE TIME OF THE CALL AND THIS IS ENCOURAGED. ) Diet: Heart Healthy Fluids: 2000ml (8 cups) Addtl Attending Provider Instructions: Medications: - AMLODIPINE: 5mg daily, only start if blood pressure is elevated at home, see below Acute heart failure with preserved ejection fraction responded well to Lasix IV, removed 3.5 liters of fluid, breathing much better when you get home, step on scale to record a baseline weight then, step on the scale EVERY morning after you urinate and prior to eating/drinking record your weight every morning, if weight is above baseline weight by 2 lbs then you need to take your Lasix 20mg if your weight stays up despite taking Lasix then you need to call Dr. Todd's office for instructions Hypertension: blood pressure has been elevated here in the hospital, looking back at outpatient records your blood pressure is always well controlled the last time you had elevated blood pressure was when you were hospitalized in 2018 I will prescribe you amlodipine 5mg daily to take at home IF your blood pressure is greater than 150 systolic (top number) if your blood pressure is consistently high despite taking amlodipine and metoprolol then you should call Dr. Todd or Dr. Colmenares's office for instructions Pulmonary nodule, adrenal nodule found incidentally on CT of the chest recommend follow up with Dr. Padilla in the next few weeks, repeat CT of the chest within 3 months to monitor Call 911 and go to the Emergency Room if: * You have tightness or pain in your chest that does not go away with rest or Nitroglycerin * You are very short of breath even with rest Call your doctor if any of the following symptoms or problems start or get worse: * Shortness of breath or difficulty breathing * Wake up at night short of breath * Chest pain * Cough * Swelling of your hands, fee, or legs * More fatigued or tired with your normal activity * Palpitations - sudden fast heart beats WEIGHT * Weigh yourself every morning after using the bathroom. * Use the same scale. * Wear the same amount of clothing. * Write your weight down on your chart. * Call your doctor if you gain more than 2-3 pounds in 1-2 days. MEDICATIONS * Use this discharge instruction sheet for instructions. * Take your medications at the time your doctor ordered. * Do not skip a dose of your medicines. * If you miss a dose of medicine, take as soon as possible, but DO NOT DOUBLE A DOSE. * Read your medicine information when you get home. * Know all of the side effects of your medicine. * Call your doctor's office if you have any side effects. * Be sure all of your doctors know what medicine and herbs you take (including cold, flu, and herbal medicine). * Pain Medicine: If you do not get relief from your pain, please call your doctor for help. Take the following with you to your follow-up doctor appointments: * Weight Chart * Medication List * List of questions Do not drink excessive alcohol, beer or wine. Pending Studies at Discharge: No Stand-Alone Forms: [facility] [place], Smoking Cessation Medications and DC Order Prescriptions: New amlodipine [Norvasc] 5 mg Tablet 5 mg PO QAM 30 Days Qty: 30 RF: 0 Continued trazodone 50 mg tablet 50 mg PO HS Qty: 90 RF: 1 metoprolol tartrate [Lopressor] 100 mg tablet 100 mg PO Q12 Qty: 180 RF: 3 Eliquis 2.5 mg tablet 2.5 mg PO BID Qty: 180 RF: 3 Symbicort 160-4.5 mcg/actuation HFA aerosol inhaler 2 puffs INH Q12H Qty: 10.2 RF: 11 gabapentin 600 mg tablet 600 mg PO .COMPLEX Qty: 135 RF: 3 montelukast 10 mg tablet 10 mg PO PM Qty: 30 RF: 11 bethanechol chloride 50 mg tablet 50 mg PO BID Qty: 180 RF: 1 tamsulosin 0.4 mg capsule 0.4 mg PO DAILY Qty: 90 RF: 1 tafluprost (PF) 0.0015 % dropperette 1 drops OP HS RF: 0 melatonin 5 mg tablet 10 mg PO HS RF: 0 acetaminophen 650 mg tablet extended release 1,300 mg PO DAILY PRN (Reason: pain/fever) RF: 0 sennosides-docusate sodium [Senna with Docusate Sodium] 8.6-50 mg Tablet 2 tab PO HS PRN (Reason: Constipation) RF: 0 furosemide [Lasix] 20 mg tablet 20 mg PO DAILY PRN (Reason: Weight Gain) RF: 0 ipratropium bromide 0.02 % solution 1 unit Inhalation TID RF: 0 Refresh Liquigel 1 % Drops, Liquid Gel 1 drp OPHTHALMIC (EYE) Q4 PRN (Reason: Dry Eyes) RF: 0 cholecalciferol (vitamin D3) [Vitamin D3] 2,000 unit Tablet 2,000 unit PO DAILY RF: 0 Discharge Orders: Discharge Order (Routine); Ordered 11/11/19 Ordered By: Yury Lang Admission Data Admit Date/Time: 11/10/19 01:24 Attending Provider: Yury Lang Admit Provider: Brett Sr Primary Care Provider: Hola Colmenares Other Providers: Shemar Todd Jr ; Jewel Gonsalves ; Boris Winchester Other Interventions: Discharge Summary Assessment (RN) Last Done: 11/11/19 11:33 DC Date/Time DO NOT enter until pt leaves facility: 11/11/19 13:00 Coding Level of Care Code 72207 OBS Care - Discharge Diagnoses Acute pulmonary edema J81.0 Adrenal cortical adenoma D35.00 Anticoagulant long-term use Z79.01 Atrial fibrillation I48.91 Chronic obstructive pulmonary disease J44.9 COPD type: unspecified COPD Chronic kidney disease, stage III (moderate) N18.3 Heart failure I50.9 Hyperlipidemia E78.5 Hypertension I10 Impaired fasting glucose R73.01 Peripheral neuropathy G62.9 BPH (benign prostatic hyperplasia) N40.1; R39.11 Lower urinary tract symptom detail: urinary hesitancy Lower urinary tract symptom presence: symptoms present Chronic respiratory failure with hypoxia J96.11
[2019-11-11] MEDS ORDERED: AMLODIPINE BESYLATE 5 MG TAB PO ONE (08:45)
[2019-11-11] MEDS ORDERED: AMLODIPINE BESYLATE 5 MG TAB PO SCH (09:00)
[2019-11-11 09:16] LABS: Calcium 9.2 mg/dl (8.5-10.1); Creatinine Clr Calc Pharmacy 43.4 ml/min; Est GFR (African American) 44.1; Est GFR (Non-African American) 38.1; Potassium 3.3 mmol/L (3.5-5.1)
--- NOTE | 2019-11-11 13:17 | Communication Note ---
Date of Service: November 11, 2019 Two physician review completed and patient does not meet medical necessity for acute inpatient status. Observation status is appropriate. Richard Delgado MD
--- NOTE | 2019-11-12 03:41 | Billing Data ---
Date of Service November 12, 2019 Coding Level of Care Code 12122 Initial Inpt Care Lvl 3
[2019-11-12] MEDS ORDERED: AMLODIPINE BESYLATE 5 MG TAB PO SCH (09:00)
== END 2019-11-11 13:00 | disposition home health service (06) ==
LOC: ED 23:12 → SUATTDRO 11-10 01:24 → 2W 11-10 01:24 → INTOOBSV 11-10 01:24 → 2W 11-10 01:49

== ENCOUNTER 2020-08-21 12:14 | Inpatient (IN) ==
[2020-08-21] MEDS ORDERED: LABETALOL HCL IV 5 MG/ML 20ML IV PRN (12:36)
[2020-08-21] MEDS ORDERED: SODIUM CHLORIDE 0.9% 1000ML 1,000 ML IV SCH (12:45)
--- NOTE | 2020-08-21 12:47 | Emergency Department Note ---
History of Present Illness General Chief complaint: Shortness of Breath/Dyspnea Stated complaint: SOB MENTAL STATUS CHANGE Time Seen by Provider: 08/21/20 12:25 Source: patient and family Mode of arrival: wheelchair Limitations: other (Poor historian) History of Present Illness Provider complaint: Shortness of breath and left arm weakness The patient presents to the ED this morning with his via private vehicle. The patient reports his chief complaint is being shortness of breath since yesterday evening. He also reported having a headache sometime yesterday. He seems to have left arm weakness that is not normal for him. Both the patient and his seem to be poor historians. He also has a rightward gaze and left hemineglect specifically regarding his left arm and not having the ability to look to the left. The patient did admit to falling yesterday when questioned. He did not think he hit his head but his right shoulder. The states that she thinks he may have hit his head. The patient is otherwise not providing any additional information. He has no additional complaints at this time. No nausea or vomiting. No known recent illnesses. He reports that he is on Eliquis for his chronic A. fib. Home Medications Medication Instructions Recorded Confirmed Type Refresh Liquigel 1 drp OPHTHALMIC (EYE) Q4 PRN 04/14/18 08/21/20 History cholecalciferol (vitamin D3) 2,000 unit PO DAILY 04/14/18 08/21/20 History [Vitamin D3] sennosides-docusate sodium [Senna 2 tab PO HS 04/14/18 08/21/20 History with Docusate Sodium] tafluprost (PF) 0.0015 % eye drops 1 drops OP HS ea 05/13/19 08/21/20 History in a dropperette melatonin 5 mg tablet 10 mg PO HS tab 06/01/19 08/21/20 History bethanechol chloride 50 mg tablet 50 mg PO BID #180 tab 12/20/19 08/21/20 Rx ipratropium bromide 0.03 % nasal See Rx Instructions .ROUTE .COMPLEX 02/10/20 08/21/20 History spray metoprolol tartrate 100 mg tablet 100 mg PO Q12 #180 tab 05/10/20 08/21/20 Rx budesonide-formoterol HFA 160 2 puff INH Q12H #10.2 gm 06/28/20 08/21/20 Rx mcg-4.5 mcg/actuation aerosol inhaler apixaban 2.5 mg tablet 2.5 mg PO BID #180 tab 07/16/20 08/21/20 Rx montelukast 10 mg tablet 10 mg PO PM #30 tab 07/31/20 08/21/20 Rx acetaminophen [Tylenol Extra 500 mg PO Q6H PRN 08/21/20 08/21/20 History Strength] furosemide [Lasix] 20 mg PO QAM PRN 08/21/20 08/21/20 History gabapentin 300 mg PO BID 08/21/20 08/21/20 History guaifenesin [Mucinex] 600 mg PO Q12 PRN 08/21/20 08/21/20 History ipratropium-albuterol [Combivent 1 puff INHALATION QID 08/21/20 08/21/20 History Respimat] levalbuterol HCl 1.25 mg INHALATION Q8H 08/21/20 08/21/20 History lisinopril 5 mg PO DAILY 08/21/20 08/21/20 History mometasone-formoterol [Dulera] 2 puff INHALATION BID 08/21/20 08/21/20 History tamsulosin 0.4 mg PO QDD 08/21/20 08/21/20 History trazodone 50 mg PO HS 08/21/20 08/21/20 History Allergies Allergy/AdvReac Type Severity Reaction Status Date / Time ciprofloxacin AdvReac Unknown GI UPSET Verified 08/21/20 13:29 Past Med/Surg History Medical History Acute diastolic congestive heart failure BPH (benign prostatic hyperplasia) Chronic kidney disease, stage III (moderate) Chronic obstructive pulmonary disease Chronic respiratory failure with hypoxia COPD (chronic obstructive pulmonary disease) H/O long-term (current) use of anticoagulants Hypertension Hypotension Mediastinal adenopathy Open wound of foot Orthostatic hypotension Paroxysmal atrial fibrillation Recurrent falls Restrictive lung disease Vitamin D deficiency Surgical History Cataract extraction status H/O pneumonectomy History of inguinal hernia repair, bilateral S/P pneumonectomy LLL resection - [facility] S/P TURP Family History Sister Stroke Mother , age 76 Myocardial infarction Father , age 93 from fracture of neck due to MVA Cervical spine fracture Other No pertinent family history Social History Smoking Status: Never smoker Second Hand Exposure: Yes; Hx Alcohol Use: No Hx Substance Use: No Preferred Language: Indonesian Communication Ability: Effective Sand System Operator Required: No Beliefs That Will Affect Care: None marital status: Current Living Situation: Spouse Current Living Situation Comment: lives with in [place] current occupational status: retired other: 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[employer], [employer]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) Feels Safe at Home: Yes Assistive Devices: Walker Review of Systems A total of 10 systems reviewed and were otherwise negative Physical Exam Vital Signs Vital Signs - 24 hr 08/21/20 12:22 08/21/20 12:27 08/21/20 12:31 Temperature 36.0 C L Temperature Source Temporal Artery Scan Pulse Rate 68 137 H Pulse Rate from SpO2 Sensor 93 H Pulse Rhythm Regular Pulse Strength Normal Respiratory Rate 22 23 Respiratory Effort / Characteristics Non-Labored Spontaneous Short of Breath Respiratory Depth Normal Shallow Respiratory Pattern Regular Tachypnea Blood Pressure 196/86 H Blood Pressure Mean 122 149 Blood Pressure Position Sitting Pulse Oximetry 94 100 99 Oxygen Delivery Method Nasal Cannula Nasal Cannula Oxygen Flow Rate 3 2 Sepsis Recent Fever Within 48 Hours No Sepsis New/Unexplained Change in Mental Status No Sepsis Action Taken by Nursing No Action Required 08/21/20 12:32 08/21/20 12:33 08/21/20 12:40 Temperature Temperature Source Pulse Rate 155 H 161 H 136 H Pulse Rate from SpO2 Sensor 91 H 109 H 77 Pulse Rhythm Pulse Strength Respiratory Rate 22 30 H 24 Respiratory Effort / Characteristics Respiratory Depth Respiratory Pattern Blood Pressure 200/129 H Blood Pressure Mean 152 Blood Pressure Position Pulse Oximetry 97 99 100 Oxygen Delivery Method Oxygen Flow Rate Sepsis Recent Fever Within 48 Hours Sepsis New/Unexplained Change in Mental Status Sepsis Action Taken by Nursing 08/21/20 12:50 08/21/20 13:00 08/21/20 13:02 Temperature Temperature Source Pulse Rate 147 H 126 H 136 H Pulse Rate from SpO2 Sensor 85 86 87 Pulse Rhythm Pulse Strength Respiratory Rate 29 H 21 29 H Respiratory Effort / Characteristics Respiratory Depth Respiratory Pattern Blood Pressure 170/108 H Blood Pressure Mean 128 Blood Pressure Position Pulse Oximetry 100 97 100 Oxygen Delivery Method Oxygen Flow Rate Sepsis Recent Fever Within 48 Hours Sepsis New/Unexplained Change in Mental Status Sepsis Action Taken by Nursing 08/21/20 13:10 08/21/20 13:15 08/21/20 13:35 Temperature Temperature Source Pulse Rate 103 H 89 103 H Pulse Rate from SpO2 Sensor 99 H 95 H 96 H Pulse Rhythm Pulse Strength Respiratory Rate 20 29 H 25 H Respiratory Effort / Characteristics Respiratory Depth Respiratory Pattern Blood Pressure 160/85 H Blood Pressure Mean 110 Blood Pressure Position Pulse Oximetry 96 100 100 Oxygen Delivery Method Oxygen Flow Rate Sepsis Recent Fever Within 48 Hours Sepsis New/Unexplained Change in Mental Status Sepsis Action Taken by Nursing 08/21/20 13:36 08/21/20 13:40 08/21/20 13:50 Temperature Temperature Source Pulse Rate 105 H 103 H Pulse Rate from SpO2 Sensor 104 H 110 H 97 H Pulse Rhythm Pulse Strength Respiratory Rate 24 19 Respiratory Effort / Characteristics Respiratory Depth Respiratory Pattern Blood Pressure 168/93 H Blood Pressure Mean 118 Blood Pressure Position Pulse Oximetry 99 99 92 Oxygen Delivery Method Oxygen Flow Rate Sepsis Recent Fever Within 48 Hours Sepsis New/Unexplained Change in Mental Status Sepsis Action Taken by Nursing 08/21/20 14:00 08/21/20 14:01 08/21/20 14:10 Temperature Temperature Source Pulse Rate 99 H 116 H 89 Pulse Rate from SpO2 Sensor 97 H 94 H 98 H Pulse Rhythm Pulse Strength Respiratory Rate 23 18 30 H Respiratory Effort / Characteristics Respiratory Depth Respiratory Pattern Blood Pressure 177/99 H Blood Pressure Mean 125 Blood Pressure Position Pulse Oximetry 96 99 98 Oxygen Delivery Method Oxygen Flow Rate Sepsis Recent Fever Within 48 Hours Sepsis New/Unexplained Change in Mental Status Sepsis Action Taken by Nursing CONSTITUTIONAL/VITAL SIGNS: Reviewed / noted above. GENERAL: Non-toxic in appearance. INTEGUMENTARY: Warm, dry, and [place]. HEAD: Normocephalic. EYES: without scleral icterus or trauma. ENT/OROPHARYNX: clear and dry. LYMPHADENOPATHY/NECK: Is supple without lymphadenopathy or meningismus. RESPIRATORY: Lungs clear and equal. CARDIOVASCULAR: Tachycardic rate and irregular rhythm. GI/ABDOMEN: Soft and nontender. No organomegaly or pulsatile mass. No rebound or guarding. Normal bowel sounds. EXTREMITIES: Warm and well perfused. BACK: No CVA tenderness. NEUROLOGICAL: The patient answers all questions appropriately. He has a rightward gaze. He has left hemineglect. He has significant weakness in his left arm. His legs seem to have equal and normal strength. PSYCHIATRIC: normal affect. MUSCULOSKELETAL: Normally developed with good muscle tone. TRIAGE NURSING DOCUMENTATION REVIEWED. Course Administered Medications Labetalol HCl (Labetalol Hcl Iv 5 Mg/Ml 20ml) 20 mg IV Q10M PRN PRN Reason: SBP above 185 or DBP above 110 Last Admin: 08/21/20 13:02 Dose: 20 mg Documented by: [id number] Cosigned by: [id number] Critical Care Time Critical Care Time: Yes Total Critical Care Time: 30 I have personally spent 30 minutes of critical care time in the direct management of this patient. This includes bedside care, interpretation of diagnostic studies, and testing, discussion with consultants, patient, and family members, and other required patient management activities. This 30 minutes is in excess of all separately billable procedures. Medical Decision Making Differential Diagnosis Differential includes acute coronary syndrome, myocardial infarction, CVA, TIA, anemia, infection, pneumonia, UTI, pyelonephritis, poor nutrition, dehydration, electrolyte disturbance,hypoglycemia. Medical Records Attestation: I reviewed the patient's medical records. Home Medications Current Medication List: was personally reviewed by me Laboratory Data Attestation: I reviewed the patient's lab results. Result diagrams: 08/21/20 12:45 08/21/20 12:45 Lab Results 08/21/20 08/21/20 08/21/20 Range/Units 12:45 12:45 12:45 WBC 16.40 H (4.8-10.8) K/uL RBC 4.81 (4.7-6.1) M/uL Hgb 15.0 (14.0-18.0) g/dL POC Hgb (14.0-18.0) g/dl Hct 44.8 (42-52) % POC Hct (42-52) % MCV 93.1 (80-100) fL MCH 31.2 (25-34) pg MCHC 33.5 (32-36) g/dL RDW Std Deviation 53.9 H (36.4-46.3) fL RDW Coeff of Mica 16.1 H (11.5-14.5) % Plt Count 173 (130-400) K/uL MPV 10.6 H (7.4-10.4) fL Immature Gran % (Auto) 0.2 % Neut % (Auto) 81.3 % Lymph % (Auto) 11.2 % Lee % (Auto) 6.1 % Eos % (Auto) 1.0 % Baso % (Auto) 0.2 % Neut # (Auto) 13.32 H (1.4-6.5) K/uL Lymph # (Auto) 1.84 (1.2-3.4) K/uL Lee # (Auto) 1.00 H (0.11-0.59) K/uL Eos # (Auto) 0.17 (0-0.5) K/uL Baso # (Auto) 0.04 (0-0.2) K/uL Immature Gran # (Auto) 0.03 H (0.00-0.02) K/uL PT 13.2 H (9.0-12.0) Seconds INR 1.3 H (0.9-1.1) APTT 24.4 (21.0-31.0) Seconds PTT Ratio 0.9 POC Sodium (135-144) mmol/L Sodium 141 (136-145) mmol/L POC Potassium (3.3-5.0) mmol/L Potassium 2.9 L (3.5-5.1) mmol/L POC Chloride (101-112) mmol/L Chloride 100 (98-107) mmol/L Carbon Dioxide 26 (21-32) mmol/L POC Total CO2 (24-31) mmol/L Anion Gap 15.0 H (3-11) POC Anion Gap (16-25) mmol/L POC BUN (7-18) mg/dl BUN 19 H (7-18) mg/dl Creatinine 2.18 H (0.6-1.4) mg/dl POC Creatinine (0.6-1.3) mg/dl Est Cr Clr Drug Dosing 28.7 ml/min Est GFR ( Amer) 31.5 Est GFR (Non-Af Amer) 27.2 BUN/Creatinine Ratio 8.6 L (10-20) Glucose 88 (70-99) mg/dl POC Glucose (other) (70-99) mg/dl Lactate (0.4-2.0) mmol/L Calcium 9.7 (8.5-10.1) mg/dl POC Ioniz Calcium Kevin (1.12-1.32) mmol/l Magnesium 1.7 L (1.8-2.4) mg/dl Total Bilirubin 2.3 H (0.2-1) mg/dl AST 36 (15-37) U/L ALT 27 (12-78) U/L Alkaline Phosphatase 61 (45-117) U/L Troponin I 0.076 H* (0-0.045) ng/ml Total Protein 7.7 (6.4-8.2) gm/dl Albumin 3.6 (3.4-5.0) gm/dl Globulin 4.1 H (2.5-4.0) gm/dl Albumin/Globulin Ratio 0.9 (0.9-2) COVID-19 Eval Order SARS-CoV-2, RNA, NAAT (NEGATIVE) Blood Type Antibody Screen 08/21/20 08/21/20 08/21/20 Range/Units 12:55 13:00 13:13 WBC (4.8-10.8) K/uL RBC (4.7-6.1) M/uL Hgb (14.0-18.0) g/dL POC Hgb 16.0 (14.0-18.0) g/dl Hct (42-52) % POC Hct 47 (42-52) % MCV (80-100) fL MCH (25-34) pg MCHC (32-36) g/dL RDW Std Deviation (36.4-46.3) fL RDW Coeff of Mica (11.5-14.5) % Plt Count (130-400) K/uL MPV (7.4-10.4) fL Immature Gran % (Auto) % Neut % (Auto) % Lymph % (Auto) % Lee % (Auto) % Eos % (Auto) % Baso % (Auto) % Neut # (Auto) (1.4-6.5) K/uL Lymph # (Auto) (1.2-3.4) K/uL Lee # (Auto) (0.11-0.59) K/uL Eos # (Auto) (0-0.5) K/uL Baso # (Auto) (0-0.2) K/uL Immature Gran # (Auto) (0.00-0.02) K/uL PT (9.0-12.0) Seconds INR (0.9-1.1) APTT (21.0-31.0) Seconds PTT Ratio POC Sodium 139 (135-144) mmol/L Sodium (136-145) mmol/L POC Potassium 2.8 L (3.3-5.0) mmol/L Potassium (3.5-5.1) mmol/L POC Chloride 101 (101-112) mmol/L Chloride (98-107) mmol/L Carbon Dioxide (21-32) mmol/L POC Total CO2 30 (24-31) mmol/L Anion Gap (3-11) POC Anion Gap 13.0 L (16-25) mmol/L POC BUN 19 H (7-18) mg/dl BUN (7-18) mg/dl Creatinine (0.6-1.4) mg/dl POC Creatinine 2.2 H (0.6-1.3) mg/dl Est Cr Clr Drug Dosing ml/min Est GFR ( Amer) Est GFR (Non-Af Amer) BUN/Creatinine Ratio (10-20) Glucose (70-99) mg/dl POC Glucose (other) 91 (70-99) mg/dl Lactate 2.6 H* (0.4-2.0) mmol/L Calcium (8.5-10.1) mg/dl POC Ioniz Calcium Kevin 1.02 L (1.12-1.32) mmol/l Magnesium (1.8-2.4) mg/dl Total Bilirubin (0.2-1) mg/dl AST (15-37) U/L ALT (12-78) U/L Alkaline Phosphatase (45-117) U/L Troponin I (0-0.045) ng/ml Total Protein (6.4-8.2) gm/dl Albumin (3.4-5.0) gm/dl Globulin (2.5-4.0) gm/dl Albumin/Globulin Ratio (0.9-2) COVID-19 Eval Order SARS-CoV-2, RNA, NAAT (NEGATIVE) Blood Type O Positive Antibody Screen NEGATIVE 08/21/20 08/21/20 Range/Units 13:20 13:20 WBC (4.8-10.8) K/uL RBC (4.7-6.1) M/uL Hgb (14.0-18.0) g/dL POC Hgb (14.0-18.0) g/dl Hct (42-52) % POC Hct (42-52) % MCV (80-100) fL MCH (25-34) pg MCHC (32-36) g/dL RDW Std Deviation (36.4-46.3) fL RDW Coeff of Mica (11.5-14.5) % Plt Count (130-400) K/uL MPV (7.4-10.4) fL Immature Gran % (Auto) % Neut % (Auto) % Lymph % (Auto) % Lee % (Auto) % Eos % (Auto) % Baso % (Auto) % Neut # (Auto) (1.4-6.5) K/uL Lymph # (Auto) (1.2-3.4) K/uL Lee # (Auto) (0.11-0.59) K/uL Eos # (Auto) (0-0.5) K/uL Baso # (Auto) (0-0.2) K/uL Immature Gran # (Auto) (0.00-0.02) K/uL PT (9.0-12.0) Seconds INR (0.9-1.1) APTT (21.0-31.0) Seconds PTT Ratio POC Sodium (135-144) mmol/L Sodium (136-145) mmol/L POC Potassium (3.3-5.0) mmol/L Potassium (3.5-5.1) mmol/L POC Chloride (101-112) mmol/L Chloride (98-107) mmol/L Carbon Dioxide (21-32) mmol/L POC Total CO2 (24-31) mmol/L Anion Gap (3-11) POC Anion Gap (16-25) mmol/L POC BUN (7-18) mg/dl BUN (7-18) mg/dl Creatinine (0.6-1.4) mg/dl POC Creatinine (0.6-1.3) mg/dl Est Cr Clr Drug Dosing ml/min Est GFR ( Amer) Est GFR (Non-Af Amer) BUN/Creatinine Ratio (10-20) Glucose (70-99) mg/dl POC Glucose (other) (70-99) mg/dl Lactate (0.4-2.0) mmol/L Calcium (8.5-10.1) mg/dl POC Ioniz Calcium Kevin (1.12-1.32) mmol/l Magnesium (1.8-2.4) mg/dl Total Bilirubin (0.2-1) mg/dl AST (15-37) U/L ALT (12-78) U/L Alkaline Phosphatase (45-117) U/L Troponin I (0-0.045) ng/ml Total Protein (6.4-8.2) gm/dl Albumin (3.4-5.0) gm/dl Globulin (2.5-4.0) gm/dl Albumin/Globulin Ratio (0.9-2) COVID-19 Eval [facility] SARS-CoV-2, RNA, NAAT NEGATIVE (NEGATIVE) Blood Type Antibody Screen Imaging Data Radiologist's Impression: XR chest 1V portable HISTORY: Resp sx c/w COVID-19 COMPARISON: Chest 08/14/2020. FINDINGS: No pneumothorax. Chronic left basilar density/scarring persists. There are low lung volumes. No new focal lung consolidations. No evidence for pulmonary edema. The cardiac silhouette remains mildly enlarged. IMPRESSION: 1. No change in the chronic left basilar density/scarring. 2. Stable cardiomegaly. 3. No new focal lung consolidations. HEAD CT NONCONTRAST CT DOSE: 1842.80 mGy.cm HISTORY: Altered mental status. Stroke Like Symptoms TECHNIQUE: Multiaxial CT images of the head were performed without the use of intravenous contrast. Automated exposure control was utilized for this study. A dose lowering technique was utilized adhering to the principles of ALARA. Comparison: Head CT 04/14/2018. Findings: Significant motion artifact resulting in suboptimal evaluation of the brain. Complete opacification of the right maxillary sinus and a fluid level of the right frontal sinus. This has progressed and is consistent with acute on chronic sinusitis. The mastoid air cells appear clear. The calvarium and skull base are intact. There is no mass, hematoma, midline shift, acute infarct. White matter hypodensity is nonspecific but suggestive of microvascular ischemic change. The ventricles and sulci demonstrate mild age-related involutional changes. Small focus of encephalomalacia within the right high convexity remains unchanged. This could be due to an old infarct. Impression: 1. Suboptimal evaluation of the brain due to motion artifact. No definite acute intracranial abnormality. 2. Acute on chronic right paranasal sinusitis. ECG Data Attestation: I personally reviewed and interpreted this ECG as follows: Indication: + palpitations and + SOB/dyspnea Rate (beats per minute): 149 Rhythm: + atrial fibrillation ECG ST segments: + ST depression (Diffuse) ECG Findings: no PVCs MDM Narrative Patient presents with a chief complaint of shortness of breath. He is a poor historian as is his . On exam he has left hemineglect specifically with regards to his left arm and is unable to look towards the left. He has somewhat of a rightward gaze. His tongue is dry. He is tachycardic in A. fib. He reports chronically being on Eliquis. Unknown time of onset of symptoms with regards to his left arm weakness and rightward gaze. Patient states that he had a headache yesterday. He had shortness of breath that started last night. He is not a candidate for thrombolytics as he is on Eliquis and the unknown onset of symptoms. His also is unable to report onset of his left arm weakness and rightward gaze. Stroke alert was not called because of these reasons. The patient did have improvement of the left-sided neglect and was actually able to use the left arm after about his first 30 minutes here. He does have an elevation of his troponin. His potassium is a little low. His creatinine was 2.18. His lactate was slightly elevated. His total bilirubin was slightly elevated. Covid testing is negative. He will be seen by the hospitalist for further evaluation and care. His symptoms likely represent a hypertensive emergency as he has not bump in his LFTs and he had TIA-like symptoms at his presentation. He also had A. fib with RVR. His blood pressure did improve and his heart rate improved as well during his ED stay. He was treated here with IV labetalol. Impression & Plan Hypertensive emergency, Brain TIA, Atrial fibrillation with RVR, Elevated troponin Discharge Plan Visit Data Chief Complaint: Shortness of Breath/Dyspnea Stated Complaint: SOB MENTAL STATUS CHANGE ED Provider: Ab Parekh Discharge Problem: Hypertensive emergency, Brain TIA, Atrial fibrillation with RVR, Elevated troponin Forms Stand Alone Forms: My [facility] [employer] Prescriptions Prescriptions: No Action metoprolol tartrate [Lopressor] 100 mg tablet 100 mg PO Q12 Qty: 180 RF: 3 Symbicort 160-4.5 mcg/actuation HFA aerosol inhaler 2 puff INH Q12H Qty: 10.2 RF: 5 Eliquis 2.5 mg tablet 2.5 mg PO BID Qty: 180 RF: 3 montelukast 10 mg tablet 10 mg PO PM Qty: 30 RF: 11 bethanechol chloride 50 mg tablet 50 mg PO BID Qty: 180 RF: 3 ipratropium bromide 0.03 % spray,non-aerosol See Rx Instructions .ROUTE .COMPLEX RF: 0 Zioptan (PF) 0.0015 % dropperette 1 drops OP HS RF: 0 melatonin 5 mg tablet 10 mg PO HS RF: 0 acetaminophen [Tylenol Extra Strength] 500 mg Tablet 500 mg PO Q6H PRN (Reason: Pain) RF: 0 lisinopril 5 mg Tablet 5 mg PO DAILY RF: 0 levalbuterol HCl 1.25 mg/3 mL Solution For Nebulization 1.25 mg INHALATION Q8H RF: 0 Dulera 200-5 mcg/actuation Hfa Aerosol Inhaler 2 puff INHALATION BID RF: 0 guaifenesin [Mucinex] 600 mg Tablet Extended Release 12hr 600 mg PO Q12 PRN (Reason: Cough) RF: 0 Combivent Respimat 20-100 mcg/actuation Mist 1 puff INHALATION QID RF: 0 gabapentin 600 mg tablet 300 mg PO BID RF: 0 trazodone 50 mg tablet 50 mg PO HS RF: 0 tamsulosin 0.4 mg capsule 0.4 mg PO QDD RF: 0 furosemide [Lasix] 20 mg tablet 20 mg PO QAM PRN (Reason: Weight Gain) RF: 0 sennosides-docusate sodium [Senna with Docusate Sodium] 8.6-50 mg Tablet 2 tab PO HS RF: 0 Refresh Liquigel 1 % Drops, Liquid Gel 1 drp OPHTHALMIC (EYE) Q4 PRN (Reason: Dry Eyes) RF: 0 cholecalciferol (vitamin D3) [Vitamin D3] 2,000 unit Tablet 2,000 unit PO DAILY RF: 0
[2020-08-21 13:05] LABS: Basophils # (auto) 0.04 K/uL (0-0.2); Basophils % (auto) 0.2 %; Eosinophils # (auto) 0.17 K/uL (0-0.5); Hematocrit (blood only) 44.8 % (42-52); Immature Granulocytes # (auto) 0.03 K/uL (0.00-0.02); Immature Granulocytes % (auto) 0.2 %; Lymphocytes # (auto) 1.84 K/uL (1.2-3.4); Lymphocytes % (auto) 11.2 %; Mean Corpuscular Hemoglobin 31.2 pg (25-34); Mean Corpuscular Hgb Conc 33.5 g/dL (32-36); Mean Corpuscular Volume 93.1 fL (80-100); Mean Platelet Volume 10.6 fL (7.4-10.4); Monocytes % (auto) 6.1 %; Neutrophils # (auto) 13.32 K/uL (1.4-6.5); Neutrophils % (auto) 81.3 %; Platelet Count 173 K/uL (130-400); RDW Coefficient of Variation 16.1 % (11.5-14.5); RDW Standard Deviation 53.9 fL (36.4-46.3); Red Blood Count 4.81 M/uL (4.7-6.1)
[2020-08-21 13:20] LABS: INR 1.3 (0.9-1.1); Partial Thromboplastin Ratio 0.9; Partial Thromboplastin Time 24.4 Seconds (21.0-31.0); Prothrombin Time 13.2 Seconds (9.0-12.0)
[2020-08-21 13:22] LABS: Albumin Level 3.6 gm/dl (3.4-5.0); BUN Creatinine Ratio 8.6 (10-20); Calcium 9.7 mg/dl (8.5-10.1); Creatinine Clr Calc Pharmacy 28.7 ml/min; Est GFR (African American) 31.5; Est GFR (Non-African American) 27.2; Magnesium 1.7 mg/dl (1.8-2.4); Potassium 2.9 mmol/L (3.5-5.1)
[2020-08-21 13:23] LABS: iSTAT Creatinine 2.2 mg/dl (0.6-1.3); iSTAT Ionized Calcium 1.02 mmol/l (1.12-1.32); iSTAT Potassium 2.8 mmol/L (3.3-5.0)
--- NOTE | 2020-08-21 13:23 | XRay Report ---
XR chest 1V portable HISTORY: Resp sx c/w COVID-19 COMPARISON: Chest 08/14/2020. FINDINGS: No pneumothorax. Chronic left basilar density/scarring persists. There are low lung volumes . No new focal lung consolidations. No evidence for pulmonary edema. The cardiac silhouette remains m ildly enlarged. IMPRESSION: 1. No change in the chronic left basilar density/scarring. 2. Stable cardiomegaly. 3. No new focal lung consolidations. ACT 112: Negative or not required by law. Electronically signed by: Narayan Gaines M.D. 08/21/2020 1:22 PM
--- NOTE | 2020-08-21 13:24 | XRay Report ---
XR chest 1V portable HISTORY: Stroke Like Symptoms COMPARISON: Chest 08/14/2020. FINDINGS: Stable chronic left basilar densities/scarring. Low lung volumes. The heart remains mildly enlarged. No new focal lung consolidations. No pleural effusions. No pneumothorax. IMPRESSION: 1. Stable chronic left basilar densities/scarring. 2. No new focal lung consolidations to suggest pneumonia. 3. Stable mild cardiomegaly. ACT 112: Negative or not required by law. Electronically signed by: Narayan Gaines M.D. 08/21/2020 1:23 PM
--- NOTE | 2020-08-21 13:33 | History & Physical Report ---
Date of Service August 21, 2020 Assessment & Plan (1) Ambulatory dysfunction: - Admit to tele - Stroke order set completed - CT head has been completed and noted as a poor study due to artifact, will attempt to obtain MRI brain w/o contrast - Will attempt to control HTN for now with possible CVA with left sided hemiparesis and weakness. Pt missed am meds, will order metoprolol tartrate now and monitor. IV meds prn. - NPO except sips with meds until speech eval, given sip of water at bedside and coughs slightly afterwards. Reports this is happening at home recently but tolerates it with pinching the straw and allowing less liquid at a time. - Start asa 81 mg daily - Neurology consulted - Dr. Hunt - Follow am lipids and A1C for completeness - PT/OT consults- note multiple recent falls, determine risk for being on and off anticoagulation (2) Atrial fibrillation: - Present on admission, appears chronic, continue eliquis for now. Pt is not a candidate for lytic agents for possible CVA as above. Given recent multiple falls will also need to determine if the pt should remain on anticoagulation. - Continue rate control with beta blockade - give dose now since missed am meds - EKG reviewed as per EMR - Initial troponin elevated, likely secondary to initially being elevated rate, pt denies other ACS symptoms, will trend x 2 more sets - Check 2D echo as there is not a recent one in the chart with Afib and initially being in RVR, now seems to be better rate controlled HR in 90s. (3) Hypertension: - Attempt to control HTN with possible cva - Continue metoprolol as above (4) Hyperlipidemia: - Does not appear to be on statin therapy- start atorvastatin 40 mg QPM (5) Chronic obstructive pulmonary disease: - Cont Atrovent, Combivent, and nasal spray - Speech eval as above - Low threshold for evaluating for aspiration pna with mild coughing with sips of thin liquids, afebrile, no WBC for now. (6) Multiple pulmonary nodules determined by computed tomography of lung: - Defer to outpatient PCP for follow (7) Heart failure: - Chronic diastolic CHF - continue metoprolol tartrate 100 mg BID - Hold lisinopril 5 mg daily and lasix 20 QAM (8) Chronic kidney disease, stage III (moderate): - Cr. 2.18, BUN 19 appears to be slightly elevated compared to previous records, baseline of 1.5-1.7. Will hold lisinopril and lasix for now - Follow am labs DVT ppx: - teds, scds, eliquis CODE: DNR/DNI Dispo: From home, likely to remain in the hospital x 1-2 days History of Present Illness Primary Care Provider: Luis Colmenares MD This is an 80 yo M with PMHx of afib on eliquis, HTN, HLD, diastolic CHF on lasix, COPD, chronic respiratory failure with hypoxia, restrictive lung disease, vitamin D deficiency. Patient is a poor historian and does not provide specific information and seems to have difficulty answering simple questions with the Mini-Mental exam at the beginning of my evaluation. His is present at bedside, also a poor historian and does not aid in the HPI. Pt initially presented to the ER with left sided gait s/p fall in the bathroom which occurred this morning. He reports multiple falls recently, and that every time he falls it is in the bathroom. He fell backwards and hit between the shoulder blades, but denies hitting his head or LOC. He was using a walker and able to get himself back up using the walker and with help of his who is present at bedside. Afterwards the noticed he was having difficulty ambulating and walking. Pt admits to having weakness in both knees. He is unable to determine if he had a left or right-sided weakness when he got up from falling. He seems to have left arm weakness which is not normal for him. He has a rightward gaze and left hemineglect specifically regarding his left arm and not having the ability to look to the left. Patient admits to feeling significantly short of breath which started last night. He uses his inhalers routinely and wears 2 L O2 continuously at home. Patient is requesting a drink of water while standing at bedside multiple times, we attempted this to see if he had any difficulty with swallowing, patient coughs significantly after drinking 3 sips of water. With pinching of the straw and slowing of sipping, he does better. He admits to this occurring at home on a regular occasion. Patient denies any issues with chewing or swallowing solid foods previously. Pt follows with Dr. Todd with cardiology as outpatient, and if he falls tries to remember to tell him. He uses a walker most of the time. Pt does not typically weight himself and does not know what his dry weight is. Denies feeling swollen. He missed his morning medications including metoprolol, Lasix, and lisinopril. He is slightly hypertensive upon admission with BP 177/99, his rate is controlled in the 90s at bedside. He also missed Eliquis, however is not a candidate for lytic therapy. The CT of the head has been conducted and read as a poor study, will attempt to obtain an MRI of the brain. The patient is in atrial fibrillation on EKG but is rate controlled at this time. His troponin is bumped on admission but he denies having any chest pain, tightness, nausea, vomiting, numbness or pain in arms or jaw. Allergies Allergy/AdvReac Type Severity Reaction Status Date / Time ciprofloxacin AdvReac Unknown GI UPSET Verified 08/21/20 13:29 Home Medications Medication Instructions Recorded Confirmed Type Refresh Liquigel 1 drp OPHTHALMIC (EYE) Q4 PRN 04/14/18 08/21/20 History cholecalciferol (vitamin D3) 2,000 unit PO DAILY 04/14/18 08/21/20 History [Vitamin D3] sennosides-docusate sodium [Senna 2 tab PO HS 04/14/18 08/21/20 History with Docusate Sodium] tafluprost (PF) 0.0015 % eye drops 1 drops OP HS ea 05/13/19 08/21/20 History in a dropperette melatonin 5 mg tablet 10 mg PO HS tab 06/01/19 08/21/20 History bethanechol chloride 50 mg tablet 50 mg PO BID #180 tab 12/20/19 08/21/20 Rx ipratropium bromide 0.03 % nasal See Rx Instructions .ROUTE .COMPLEX 02/10/20 08/21/20 History spray metoprolol tartrate 100 mg tablet 100 mg PO Q12 #180 tab 05/10/20 08/21/20 Rx budesonide-formoterol HFA 160 2 puff INH Q12H #10.2 gm 06/28/20 08/21/20 Rx mcg-4.5 mcg/actuation aerosol inhaler apixaban 2.5 mg tablet 2.5 mg PO BID #180 tab 07/16/20 08/21/20 Rx montelukast 10 mg tablet 10 mg PO PM #30 tab 07/31/20 08/21/20 Rx acetaminophen [Tylenol Extra 500 mg PO Q6H PRN 08/21/20 08/21/20 History Strength] furosemide [Lasix] 20 mg PO QAM PRN 08/21/20 08/21/20 History gabapentin 300 mg PO BID 08/21/20 08/21/20 History guaifenesin [Mucinex] 600 mg PO Q12 PRN 08/21/20 08/21/20 History ipratropium-albuterol [Combivent 1 puff INHALATION QID 08/21/20 08/21/20 History Respimat] levalbuterol HCl 1.25 mg INHALATION Q8H 08/21/20 08/21/20 History lisinopril 5 mg PO DAILY 08/21/20 08/21/20 History mometasone-formoterol [Dulera] 2 puff INHALATION BID 08/21/20 08/21/20 History tamsulosin 0.4 mg PO QDD 08/21/20 08/21/20 History trazodone 50 mg PO HS 08/21/20 08/21/20 History Past Med/Surg History Medical History Acute diastolic congestive heart failure BPH (benign prostatic hyperplasia) Chronic kidney disease, stage III (moderate) Chronic obstructive pulmonary disease Chronic respiratory failure with hypoxia COPD (chronic obstructive pulmonary disease) H/O long-term (current) use of anticoagulants Hypertension Hypotension Mediastinal adenopathy Open wound of foot Orthostatic hypotension Paroxysmal atrial fibrillation Recurrent falls Restrictive lung disease Vitamin D deficiency Surgical History Cataract extraction status H/O pneumonectomy History of inguinal hernia repair, bilateral S/P pneumonectomy LLL resection - [facility] S/P TURP Family History Sister Stroke Mother , age 76 Myocardial infarction Father , age 93 from fracture of neck due to MVA Cervical spine fracture Other No pertinent family history Social History Smoking Status: Never smoker Second Hand Exposure: Yes; Hx Alcohol Use: No Hx Substance Use: No Preferred Language: Estonian Communication Ability: Effective Lead Printer Required: No Beliefs That Will Affect Care: None marital status: Current Living Situation: Spouse Current Living Situation Comment: lives with in [place] current occupational status: retired other: 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 Cardiovascular: No chest pain, tightness or palpitations Abdomen: No pain, nausea, vomiting, diarrhea or constipation Musculoskeletal: + R shoulder pain mild, no other joint pain, calf pain, or swelling Neurologic: + Left sided arm and leg weakness, he is able to move the left leg more than the right, able to move the left arm slightly but has difficulty. Denies numbness/tingling, + frequent falls, + balance problems and uses a walker with ambulation. Psychiatric: No anxiety or depression Skin: No rash or itch Physical Exam Physical Exam: General: awake, alert, no apparent distress, leans toward his left throughout exam Head: Normocephalic, atraumatic ENT: PERRL, EOMI except for left gaze as he is unable to perform left lateral movements, no pharyngeal exudate, mucous membranes moist Chest: Clear to auscultation, 2 L via NC, diminished breath sounds at bases bilaterally. Cardiac: Irregularly irregular, rate controlled at 90 at bedside, no murmur, no JVD, normal peripheral pulses, good capillary refill Abdominal: NABS x 4 quadrants, soft, nondistended, nontender to palpation, no rebound or guarding Extremities: Normal inspection, possible trace peripheral edema, no erythema, calfs nontender to palpation Psych: Irritable mood and affect Neuro: Responses throughout exam are somewhat delayed. Unable to name of the hospital but replies "[facility]", knows the year is 2020, does not name his at bedside but says "a slave" when asked who she is. Gaze does not go toward the left but he leans to the left. Unable to hold the left arm up into position to test pronator drift but can with the right. Negative R pronator drift. Unable to performs nose to finger testing with the left arm as he has difficulty lifting it. He attempts to lift the left arm with his right hand to perform testing. Strength in Left leg is diminished with knee extension, dorsiflexion and plantarflexion, and is unable to perform left hip flexion. He is able to do all active ROM with the RLE with rating of 5/5. Can perform heel to walker testing with the right leg, not left. Speech is clear, no peripheral sensory deficits. Results & Data Results & Data ([facility]) Vital Signs (Past 12 Hours) Vital Signs Temp Pulse Resp BP Pulse Ox 08/21/20 12:22 36.0 C L 68 22 196/86 H [address]AST [address] DOSE: 1842.80 mGy.cm HISTORY: Altered mental status. Stroke Like Symptoms TECHNIQUE: Multiaxial CT images of the head were performed without the use of intravenous contrast. Automated exposure control was utilized for this study. A dose lowering technique was utilized adhering to the principles of ALARA. Comparison: Head CT 04/14/2018. Findings: Significant motion artifact resulting in suboptimal evaluation of the brain. Complete opacification of the right maxillary sinus and a fluid level of the right frontal sinus. This has progressed and is consistent with acute on chronic sinusitis. The mastoid air cells appear clear. The calvarium and skull base are intact. There is no mass, hematoma, midline shift, acute infarct. White matter hypodensity is nonspecific but suggestive of microvascular ischemic change. The ventricles and sulci demonstrate mild age-related involutional changes. Small focus of encephalomalacia within the right high convexity remains unchanged. This could be due to an old infarct. Impression: 1. Suboptimal evaluation of the brain due to motion artifact. No definite acute intracranial abnormality. 2. Acute on chronic right paranasal sinusitis. XR chest 1V portable HISTORY: Resp sx c/w COVID-19 COMPARISON: Chest 08/14/2020. FINDINGS: No pneumothorax. Chronic left basilar density/scarring persists. There are low lung volumes. No new focal lung consolidations. No evidence for pulmonary edema. The cardiac silhouette remains mildly enlarged. IMPRESSION: 1. No change in the chronic left basilar density/scarring. 2. Stable cardiomegaly. 3. No new focal lung consolidations. ECG Additional Comments: 21-AUG-2020 12:44:40 [facility]-EDSTAT ROUTINE RETRIEVAL Atrial fibrillation with rapid ventricular response with premature ventricular or aberrantly conducted complexes Incomplete right bundle branch block Marked ST abnormality, possible inferior subendocardial injury Abnormal ECG When compared with ECG of 09-NOV-2019 23:20, Vent. rate has increased BY [address] now depressed in Inferior leads ST more depressed Anterior leads 25mm/s 10mm/mV 150Hz 9.0.9 12SL 241 AMEENA: 10 Unconfirmed Vent. rate 149 BPM MD interval * ms QRS duration 92 ms QT/QTc 342/538 ms Code Status & VTE Plan Code Status DNR/DNI -discussed with the patient and his at bedside. Supervising Physician Co-Signing Physician Notes Patient was seen and examined independently I discussed the case with Shanel Sheridan PAC I reviewed pertinent past medical social family history and also the plan of care and agree with the plan of care. Patient is slightly confused does have some residual neurological deficits concern for CVA. Certainly with his atrial fibrillation he is at risk for this. Additional imaging and neuro consult undertaken. He remains on Eliquis therapy additional antiplatelet therapy was begun further recommendations for statin will be undertaken Troponins elevated on presentation could be related will trend troponins and continue cardiac monitoring Certainly with his leukocytosis factious etiologies affection present admission Patient hypertensive urgency on presentation has achieved better blood pressure control while in the ER we will continue to monitor his blood pressure Physical exam patient associated weakness cardiac exam is irregular but better rate controlled on my examination and was on EKG his lungs are diminished at the bases is no tenderness of his lower extremities of stasis dermatitis Any exceptions will be noted below PG Care Time/CCT Total # of Minutes Spent Total Time Spent with Patient: Total time spent is greater than 50% in coordination of care (as documented) at patient's floor/unit and/or counseling patient: Coding Level of Care Code 46308 Initial Inpt Care Lvl 3 Diagnoses Ambulatory dysfunction R26.2 Atrial fibrillation I48.91 Hypertension I10 Hyperlipidemia E78.5 Chronic obstructive pulmonary disease J44.9 COPD type: unspecified COPD Multiple pulmonary nodules determined by computed tomography of lung R91.8 Heart failure I50.9 Chronic kidney disease, stage III (moderate) N18.3 (1) Chronic obstructive pulmonary disease COPD type: unspecified COPD Qualified Code(s): J44.9 - Chronic obstructive pulmonary disease, unspecified
[2020-08-21 13:58] LABS: Albumin Globulin Ratio 0.9 (0.9-2); Bilirubin,Total 2.3 mg/dl (0.2-1); Globulin 4.1 gm/dl (2.5-4.0); Total Protein 7.7 gm/dl (6.4-8.2); Troponin I 0.076 ng/ml (0-0.045)
--- NOTE | 2020-08-21 14:00 | Electrocardiogram Report ---
Test Reason : Blood Pressure : / mmHG Vent. Rate : 149 BPM Atrial Rate : 138 BPM P-R Int : 000 ms QRS Dur : 092 ms QT Int : 342 ms P-R-T Axes : 000 001 010 degrees QTc Int : 538 ms Atrial fibrillation with rapid ventricular response with premature ventricular or aberrantly conducte d complexes Incomplete right bundle branch block Diffuse Nonspecific ST abnormality Abnormal ECG When compared with ECG of 09-NOV-2019 23:20, Vent. rate has increased BY [address] now depressed in Inferior leads ST more depressed Anterior leads Confirmed by Jez Araiza ([id number]) on 08/21/2020 2:00:19 PM Referred By: Confirmed By:Jez Araiza
--- NOTE | 2020-08-21 14:01 | CT Scan Report ---
HEAD CT NONCONTRAST CT DOSE: 1842.80 mGy.cm HISTORY: Altered mental status. Stroke Like Symptoms TECHNIQUE: Multiaxial CT images of the head were performed without the use of intravenous contrast. A utomated exposure control was utilized for this study. A dose lowering technique was utilized adheri ng to the principles of ALARA. Comparison: Head CT 04/14/2018. Findings: Significant motion artifact resulting in suboptimal evaluation of the brain. Complete opaci fication of the right maxillary sinus and a fluid level of the right frontal sinus. This has progress ed and is consistent with acute on chronic sinusitis. The mastoid air cells appear clear. The calvari um and skull base are intact. There is no mass, hematoma, midline shift, acute infarct. White matter hypodensity is nonspecific but suggestive of microvascular ischemic change. The ventricles and sulci demonstrate mild age-related involutional changes. Small focus of encephalomalacia within the right h igh convexity remains unchanged. This could be due to an old infarct. Impression: 1. Suboptimal evaluation of the brain due to motion artifact. No definite acute intracranial abnormal ity. 2. Acute on chronic right paranasal sinusitis. ACT 112: Negative or not required by law. Electronically signed by: Narayan Gaines M.D. 08/21/2020 2:00 PM
[2020-08-21] MEDS: METOPROLOL TARTRATE 100 MG TAB PO SCH ×2 (15:24→21:29)
[2020-08-21] MEDS ORDERED: TAMSULOSIN HCL 0.4 MG CAP PO SCH (18:01)
[2020-08-21] MEDS ORDERED: LEVALBUTEROL HCL 1.25 MG/3 ML NEB INH SCH (18:01)
[2020-08-21] MEDS ORDERED: PHARMACIST DISCHARGE MED REC CONSULT PRN (18:01)
[2020-08-21] MEDS ORDERED: IPRATROPIUM BROMIDE/ALBUTEROL respimat INH INH SCH (18:01)
[2020-08-21] MEDS ORDERED: guaiFENesin 600 MG TABCR PO PRN (18:01)
[2020-08-21] MEDS ORDERED: ACETAMINOPHEN 500 MG TAB PO PRN (18:13)
[2020-08-21] MEDS ORDERED: MAGNESIUM SULFATE / D5W 1 GM/100 ML BAG IV ONE (18:15)
[2020-08-21] MEDS ORDERED: CARBOXYMETHYLCELLULOSE SODIUM 15 ML OP PRN (18:17)
[2020-08-21] MEDS: POTASSIUM CHLORIDE / WTR 10 MEQ/100 ML PLCT IV SCH ×3 (19:32→23:30)
[2020-08-21] MEDS: SODIUM CHLORIDE 0.9% 1000ML 1,000 ML IV SCH (19:36)
[2020-08-21] MEDS ORDERED: MELATONIN 3 MG TAB PO SCH (21:00)
[2020-08-21] MEDS ORDERED: traZODone HCL 50 MG TAB PO SCH (21:00)
[2020-08-21] MEDS ORDERED: DOCUSATE SODIUM/SENNA 50/8.6MG TAB PO SCH (21:00)
[2020-08-21] MEDS ORDERED: MONTELUKAST SODIUM 10 MG TABLET PO SCH (21:00)
[2020-08-21] MEDS: APIXABAN 2.5 MG TAB PO SCH (21:27)
[2020-08-21] MEDS: BETHANECHOL CHL 25 MG TAB PO SCH (21:27)
[2020-08-21] MEDS: GABAPENTIN 300 MG CAP PO SCH (21:28)
[2020-08-22] MEDS: POTASSIUM CHLORIDE / WTR 10 MEQ/100 ML PLCT IV SCH ×3 (00:27→14:53)
[2020-08-22] MEDS: LORazepam 1 MG/2 ML VIAL IV PRN ×2 (00:41→08:11)
[2020-08-22 05:01] LABS: Basophils # (auto) 0.03 K/uL (0-0.2); Basophils % (auto) 0.3 %; Eosinophils # (auto) 0.18 K/uL (0-0.5); Eosinophils % (auto) 1.5 %; Hematocrit (blood only) 40.9 % (42-52); Hemoglobin 13.2 g/dL (14.0-18.0); Immature Granulocytes # (auto) 0.02 K/uL (0.00-0.02); Immature Granulocytes % (auto) 0.2 %; Lymphocytes # (auto) 1.85 K/uL (1.2-3.4); Lymphocytes % (auto) 15.8 %; Mean Corpuscular Hemoglobin 30.2 pg (25-34); Mean Corpuscular Hgb Conc 32.3 g/dL (32-36); Mean Corpuscular Volume 93.6 fL (80-100); Mean Platelet Volume 10.7 fL (7.4-10.4); Monocytes # (auto) 0.77 K/uL (0.11-0.59); Monocytes % (auto) 6.6 %; Neutrophils # (auto) 8.85 K/uL (1.4-6.5); Neutrophils % (auto) 75.6 %; Platelet Count 146 K/uL (130-400); RDW Coefficient of Variation 15.9 % (11.5-14.5); RDW Standard Deviation 53.6 fL (36.4-46.3); Red Blood Count 4.37 M/uL (4.7-6.1)
[2020-08-22 05:24] LABS: Calcium 8.6 mg/dl (8.5-10.1); Est GFR (African American) 30.5; Est GFR (Non-African American) 26.3; Magnesium 2.1 mg/dl (1.8-2.4); Potassium 2.9 mmol/L (3.5-5.1)
[2020-08-22 05:43] LABS: Troponin I 0.071 ng/ml (0-0.045)
[2020-08-22 06:29] LABS: Estimated Average Glucose 100 mg/dl; Hemoglobin A1C 5.1 % (4.5-5.6)
--- NOTE | 2020-08-22 07:03 | Magnetic Resonance Report ---
MRI OF THE BRAIN WITHOUT CONTRAST CLINICAL HISTORY: Stroke like symptoms COMPARISON STUDY: CT scan dated 08/21/2020 FINDINGS: Sagittal T1, axial diffusion, proton density and T2 weighted axial, coronal FLAIR, and axial T1-weigh ronald images were acquired. No intra or extra-axial mass lesions are visualized Axial diffusion-weighted images reveal no evidence of acute or subacute infarction. There is no evidence of ventricular dilatation. Proton density T2-weighted and FLAIR images reveal moderately extensive foci of increased T2 signal w ithin the white matter, likely on a small vessel basis. There is an 11 mm cyst/area of focal encephal omalacia within the right frontoparietal vertex. There are no abnormal flow voids. Inflammatory changes are present within the right frontal and maxillary sinus. The examination is motion degraded. IMPRESSION: 1. Motion degraded study 2. No evidence of acute or subacute infarction. 3. No evidence of intracranial mass on this noncontrast study 4. Inflammatory changes within the paranasal sinuses ACT 112: Negative or not required by law. Electronically signed by: Renaldo Meneses M.D. 08/22/2020 7:02 AM
--- NOTE | 2020-08-22 08:43 | Hospitalist Progress Note ---
Date of Service August 22, 2020 Assessment & Plan (1) Encephalopathy: patient altered, thrashing in the bed, pulling at his oxygen mask and sheppard etiology unclear -- underlying dementia/sundowning, withdrawal, UTI, CHF did not respond overnight to ativan 1mg 2-10 giving another dose ativan 1mg once and as needed thereafter QTC > 500 limiting our sedation options -- may require precedex wrist restraints applied for safety occupational health and safety manager at bedside neurology consult pending (2) Acute kidney injury superimposed on CKD: 2-9 Cr 2.18, BUN 19 appears to be slightly elevated compared to previous records, baseline of 1.5-1.7. Will hold lisinopril and lasix for now 2-10 repeat BMP at noon -- Cr 2.21 currently, not improving will stop fluids and start lasix (3) Complicated UTI (urinary tract infection): UA with trace LE, 10-30 WBC, negative nitrite Follow urine culture Treat with rocephin empirically (4) Acute on chronic diastolic CHF (congestive heart failure): 2-9 Chronic diastolic CHF - continue metoprolol tartrate 100 mg BID - Hold lisinopril 5 mg daily and lasix 20 QAM 2-10 Echo EF 50-55%, borderline global hypokinesis, moderate LVH, mild aortic regurgitation giving lasix 20mg IV once, stop fluids (5) Hypokalemia: 2-10 received KCl 40meq this morning repeat BMP at noon with K 3.1 giving an additional KCl 40meq (6) Ambulatory dysfunction: - Admit to tele - Stroke order set completed - CT head has been completed and noted as a poor study due to artifact, will attempt to obtain MRI brain w/o contrast - Will attempt to control HTN for now with possible CVA with left sided hemiparesis and weakness. Pt missed am meds, will order metoprolol tartrate now and monitor. IV meds prn. - NPO except sips with meds until speech eval, given sip of water at bedside and coughs slightly afterwards. Reports this is happening at home recently but tolerates it with pinching the straw and allowing less liquid at a time. - Start asa 81 mg daily - Neurology consulted - Dr. Hunt - Follow am lipids and A1C for completeness - PT/OT consults- note multiple recent falls, determine risk for being on and off anticoagulation (7) Atrial fibrillation: - Present on admission, appears chronic, continue eliquis for now. Pt is not a candidate for lytic agents for possible CVA as above. Given recent multiple falls will also need to determine if the pt should remain on anticoagulation. - Continue rate control with beta blockade - give dose now since missed am meds - EKG reviewed as per EMR - Initial troponin elevated, likely secondary to initially being elevated rate, pt denies other ACS symptoms, will trend x 2 more sets - Check 2D echo as there is not a recent one in the chart with Afib and initially being in RVR, now seems to be better rate controlled HR in 90s. (8) Hypertension: - Attempt to control HTN with possible cva - Continue metoprolol as above (9) Hyperlipidemia: - Does not appear to be on statin therapy- start atorvastatin 40 mg QPM (10) Chronic obstructive pulmonary disease: - Cont Atrovent, Combivent, and nasal spray - Speech eval as above - Low threshold for evaluating for aspiration pna with mild coughing with sips of thin liquids, afebrile, no WBC for now. (11) Multiple pulmonary nodules determined by computed tomography of lung: - Defer to outpatient PCP for follow (12) DVT prophylaxis: DVT ppx: - teds, scds, eliquis CODE: DNR/DNI Dispo: From home, likely to remain in the hospital x 1-2 days Admission and Anticipated Discharge Date Admission Date: August 21, 2020 Subjective patient did not sleep well overnight patient altered, thrashing in the bed, pulling at his oxygen mask and sheppard patient not answering questions -- only calling out for "Rama" Review of Systems Review of Systems: Unobtainable due to cognitive status Physical Exam Constitutional: well developed, well nourished, + ill appearing and + combative; no acute distress Eyes: PERRL, conjunctivae normal, anicteric sclerae ENMT: Mouth: oral mucous membranes not dry Respiratory: + cough and + tachypneic (wearing 5L oxymask); + abnormal respiratory effort, no respiratory distress and no labored breathing Auscultation: + crackles and + rales; + lungs not clear to auscultation and no rhonchi Cardiovascular: Rate/Rhythm: regular rate and regular rhythm Heart Sounds: no murmur and no cardiac rub Vessels: normal peripheral pulses and radial pulses present; no JVD Extremities: no edema Gastrointestinal (Abdomen): Inspection/Auscultation: abdomen normal to inspection and normal bowel sounds; abdomen not distended Percussion/Palpation: abdomen soft; abdomen nontender, no guarding, abdomen not rigid and no hepatosplenomegaly Musculoskeletal: Head/Neck/Chest: normocephalic and head atraumatic Spine: no cervical spinal tenderness, no cervical muscular tenderness, no thoracic spinal tenderness and no lumbar spinal tenderness Skin: no rashes, warm and dry Trauma: + laceration (dorsum of hands) Neurologic: CN's II-XI intact bilaterally and moves all extremities Motor/Sensory: no tremor and no sensory deficit Psychiatric: Orientation: alert; + not oriented to person, + not oriented to place and + not oriented to time Apperance: + disheveled; + inappropriately groomed Affect: + anxious affect; + affect not euthymic and no tearful affect Genitourinary: Sheppard with cloudy pink urine Results & Data Results & Data ([facility]) Vital Signs (Past 12 Hours) Vital Signs Temp Pulse Resp BP Pulse Ox 08/22/20 05:52 78 18 129/103 H 08/22/20 04:00 78 21 08/22/20 00:15 36.7 C 163/94 H 94 08/21/20 21:22 36.8 C 88 201/104 H 94 Laboratory Results Abnormal lab results 08/21/20 08/21/20 08/21/20 Range/Units 12:45 12:45 12:45 WBC 16.40 H (4.8-10.8) K/uL RBC (4.7-6.1) M/uL Hgb (14.0-18.0) g/dL Hct (42-52) % RDW Std Deviation 53.9 H (36.4-46.3) fL RDW Coeff of Mica 16.1 H (11.5-14.5) % MPV 10.6 H (7.4-10.4) fL Neut # (Auto) 13.32 H (1.4-6.5) K/uL [place] # (Auto) 1.00 H (0.11-0.59) K/uL Immature Gran # (Auto) 0.03 H (0.00-0.02) K/uL PT 13.2 H (9.0-12.0) Seconds INR 1.3 H (0.9-1.1) POC Potassium (3.3-5.0) mmol/L Potassium 2.9 L (3.5-5.1) mmol/L Anion Gap 15.0 H (3-11) POC Anion Gap (16-25) mmol/L POC BUN (7-18) mg/dl BUN 19 H (7-18) mg/dl Creatinine 2.18 H (0.6-1.4) mg/dl POC Creatinine (0.6-1.3) mg/dl BUN/Creatinine Ratio 8.6 L (10-20) Lactate (0.4-2.0) mmol/L POC Ioniz Calcium Kevin (1.12-1.32) mmol/l Magnesium 1.7 L (1.8-2.4) mg/dl Total Bilirubin 2.3 H (0.2-1) mg/dl Troponin I 0.076 H* (0-0.045) ng/ml Globulin 4.1 H (2.5-4.0) gm/dl 08/21/20 08/21/20 08/21/20 Range/Units 12:55 13:00 19:07 WBC (4.8-10.8) K/uL RBC (4.7-6.1) M/uL Hgb (14.0-18.0) g/dL Hct (42-52) % RDW Std Deviation (36.4-46.3) fL RDW Coeff of Mica (11.5-14.5) % MPV (7.4-10.4) fL Neut # (Auto) (1.4-6.5) K/uL [place] # (Auto) (0.11-0.59) K/uL Immature Gran # (Auto) (0.00-0.02) K/uL PT (9.0-12.0) Seconds INR (0.9-1.1) POC Potassium 2.8 L (3.3-5.0) mmol/L Potassium (3.5-5.1) mmol/L Anion Gap (3-11) POC Anion Gap 13.0 L (16-25) mmol/L POC BUN 19 H (7-18) mg/dl BUN (7-18) mg/dl Creatinine (0.6-1.4) mg/dl POC Creatinine 2.2 H (0.6-1.3) mg/dl BUN/Creatinine Ratio (10-20) Lactate 2.6 H* 2.1 H* (0.4-2.0) mmol/L POC Ioniz Calcium Kevin 1.02 L (1.12-1.32) mmol/l Magnesium (1.8-2.4) mg/dl Total Bilirubin (0.2-1) mg/dl Troponin I (0-0.045) ng/ml Globulin (2.5-4.0) gm/dl 08/21/20 08/22/20 08/22/20 Range/Units 20:43 04:45 04:45 WBC 11.70 H (4.8-10.8) K/uL RBC 4.37 L (4.7-6.1) M/uL Hgb 13.2 L (14.0-18.0) g/dL Hct 40.9 L (42-52) % RDW Std Deviation 53.6 H (36.4-46.3) fL RDW Coeff of Mica 15.9 H (11.5-14.5) % MPV 10.7 H (7.4-10.4) fL Neut # (Auto) 8.85 H (1.4-6.5) K/uL [place] # (Auto) 0.77 H (0.11-0.59) K/uL Immature Gran # (Auto) (0.00-0.02) K/uL PT (9.0-12.0) Seconds INR (0.9-1.1) POC Potassium (3.3-5.0) mmol/L Potassium 2.9 L (3.5-5.1) mmol/L Anion Gap (3-11) POC Anion Gap (16-25) mmol/L POC BUN (7-18) mg/dl BUN 22 H (7-18) mg/dl Creatinine 2.24 H (0.6-1.4) mg/dl POC Creatinine (0.6-1.3) mg/dl BUN/Creatinine Ratio (10-20) Lactate (0.4-2.0) mmol/L POC Ioniz Calcium Kevin (1.12-1.32) mmol/l Magnesium (1.8-2.4) mg/dl Total Bilirubin (0.2-1) mg/dl Troponin I 0.060 H* 0.071 H* (0-0.045) ng/ml Globulin (2.5-4.0) gm/dl Medications Administered Current Inpatient Medications Acetaminophen (Acetaminophen 500 Mg Tab) 500 mg PO Q6H PRN PRN Reason: Pain Stop: 09/20/20 18:12 Last Admin: 08/21/20 23:35 Dose: 500 mg Documented by: Apixaban (Apixaban 2.5 Mg Tab) 2.5 mg PO BID [facility] Stop: 09/20/20 20:59 Last Admin: 08/21/20 21:27 Dose: 2.5 mg Documented by: Artificial Tears (Carboxymethylcellulose Sodium 15 Ml) 1 ml OP Q4 PRN PRN Reason: Dry Eyes Stop: 09/20/20 18:16 Aspirin (Aspirin 81 Mg Ectab) 81 mg PO QAM [facility] Stop: 09/21/20 08:59 Atorvastatin Calcium (Atorvastatin 40 Mg Tab) 40 mg PO QAM [facility] Stop: 09/21/20 08:59 Bethanechol Chloride (Bethanechol Chl 25 Mg Tab) 50 mg PO BID [facility] Stop: 09/20/20 20:59 Last Admin: 08/21/20 21:27 Dose: 50 mg Documented by: Fluticasone/Vilanterol (Fluticasone/Vilanterol 100/25mcg 14 Puffs/Inhaler) 1 puffs INH DAILY [facility]; Protocol Stop: 09/21/20 08:59 Gabapentin (Gabapentin 300 Mg Cap) 300 mg PO BID [facility] Stop: 09/20/20 20:59 Last Admin: 08/21/20 21:28 Dose: 300 mg Documented by: Guaifenesin (Guaifenesin 600 Mg Tabcr) 600 mg PO Q12 PRN PRN Reason: Cough Stop: 09/20/20 18:00 Sodium Chloride (Nss 1000ml) 1,000 mls @ 125 mls/hr IV .Q8H [facility] Stop: 08/22/20 18:29 Last Infusion: 08/22/20 01:47 Dose: 125 mls/hr Documented by: Lorazepam (Ativan) 1 mg in 2 mls @ 0.5 mls/min IV UD PRN PRN Reason: pre-MRI Stop: 08/22/20 09:00 Last Admin: 08/22/20 08:11 Dose: 0.5 mls/min Documented by: Labetalol HCl (Labetalol Hcl Iv 5 Mg/Ml 20ml) 20 mg IV Q10M PRN PRN Reason: SBP above 185 or DBP above 110 Last Admin: 08/21/20 13:02 Dose: 20 mg Documented by: Melatonin (Melatonin 3 Mg Tab) 9 mg PO HS [facility] Stop: 09/20/20 20:59 Last Admin: 08/21/20 21:28 Dose: 9 mg Documented by: Metoprolol Tartrate (Metoprolol Tartrate 100 Mg Tab) 100 mg PO Q12 [facility] Stop: 09/20/20 14:26 Last Admin: 08/21/20 21:29 Dose: 100 mg Documented by: Miscellaneous (Ipratropium [place] 0.03 % [place]: Order Awaiting Action) 1 ea N/A QS [facility] Stop: 09/21/20 00:00 Last Admin: 08/22/20 00:41 Dose: Not Given Documented by: Miscellaneous (Tafluprost: Order Awaiting Action) 1 ea N/A QS [facility] Stop: 09/21/20 00:00 Last Admin: 08/22/20 00:41 Dose: Not Given Documented by: Miscellaneous Information (Pharmacist Discharge Med Rec Consult) 1 ea N/A UD PRN PRN Reason: Consult Stop: 09/20/20 18:00 Montelukast Sodium (Montelukast Sodium 10 Mg Tablet) 10 mg PO PM [facility] Stop: 09/20/20 20:59 Last Admin: 08/21/20 21:30 Dose: 10 mg Documented by: Senna/Docusate Sodium (Docusate Sodium/Senna 50/8.6mg Tab) [address] [facility] Stop: 09/20/20 20:59 Last Admin: 08/21/20 21:29 Dose: 2 tab Documented by: Tamsulosin HCl (Tamsulosin Hcl 0.4 Mg Cap) 0.4 mg PO DAILY@1700 [facility] Stop: 09/20/20 18:00 Last Admin: 08/21/20 21:28 Dose: 0.4 mg Documented by: Trazodone HCl (Trazodone Hcl 50 Mg Tab) [address] [facility] Stop: 09/20/20 20:59 Last Admin: 08/21/20 21:28 Dose: 50 mg Documented by: Vitamin D (Cholecalciferol 1,000 Units 25 Mcg Tab) 2,000 units PO DAILY [facility] Stop: 09/21/20 08:59 PG Care Time/CCT Total # of Minutes Spent Total Time Spent with Patient: Total time spent is greater than 50% in coordination of care (as documented) at patient's floor/unit and/or counseling patient: Coding Level of Care Code 67923 Subseq Hosp Care Lvl 3 Diagnoses Encephalopathy G93.40 Acute kidney injury superimposed on CKD N17.9; N18.9 Complicated UTI (urinary tract infection) N39.0 Acute on chronic diastolic CHF (congestive heart failure) I50.33 Hypokalemia E87.6 Ambulatory dysfunction R26.2 Atrial fibrillation I48.91 Atrial fibrillation type: unspecified Hypertension I10 Hypertension type: unspecified Hyperlipidemia E78.5 Chronic obstructive pulmonary disease J44.9 COPD type: unspecified COPD Multiple pulmonary nodules determined by computed tomography of lung R91.8 DVT prophylaxis Z29.9 (1) Atrial fibrillation Atrial fibrillation type: unspecified Qualified Code(s): I48.91 - Unspecified atrial fibrillation (2) Chronic obstructive pulmonary disease COPD type: unspecified COPD Qualified Code(s): J44.9 - Chronic obstructive pulmonary disease, unspecified (3) Hypertension Hypertension type: unspecified Qualified Code(s): I10 - Essential (primary) hypertension
[2020-08-22] MEDS ORDERED: CHOLECALCIFEROL 1,000 UNITS 25 MCG TAB PO SCH (09:00)
[2020-08-22] MEDS ORDERED: ATORVASTATIN 40 MG TAB PO SCH (09:00)
[2020-08-22] MEDS ORDERED: FLUTICASONE/VILANTEROL 100/25MCG 14 PUFFS/INHALER INH SCH (09:00)
[2020-08-22] MEDS ORDERED: ASPIRIN 81 MG ECTAB PO SCH (09:00)
--- NOTE | 2020-08-22 09:13 | XCELERA ---
[id number]
[2020-08-22] MEDS ORDERED: LORazepam 1 MG/2 ML VIAL IV PRN (10:12)
[2020-08-22] MEDS: SODIUM CHLORIDE 0.9% 1000ML 1,000 ML IV SCH ×2 (11:09→11:10)
[2020-08-22] MEDS: BETHANECHOL CHL 25 MG TAB PO SCH (11:11)
[2020-08-22] MEDS: METOPROLOL TARTRATE 100 MG TAB PO SCH (11:11)
[2020-08-22] MEDS: GABAPENTIN 300 MG CAP PO SCH (11:11)
[2020-08-22] MEDS: APIXABAN 2.5 MG TAB PO SCH (11:16)
[2020-08-22 11:50] LABS: Appearance Urine Cloudy (Clear); Bilirubin Urine 3+ (Negative); Blood Urine 3+ (Negative); Color Urine Amber; Glucose Urine UA Negative (Negative); Ketones Urine 1+ (Negative); Leukocyte Esterase Urine Trace (Negative); Nitrite Urine Negative (Negative); Protein Urine 2+ (Negative); Specific Gravity Urine >= 1.030 (1.000-1.030); Urobilinogen Urine Negative (Negative)
[2020-08-22 12:09] LABS: RBC Urine >30 /hpf (0-4)
[2020-08-22 12:12] LABS: Bacteria Urine Negative (Negative); Hyaline Casts Urine >30 /lpf (0-5)
[2020-08-22 12:38] LABS: BUN Creatinine Ratio 10.9 (10-20); Calcium 8.6 mg/dl (8.5-10.1); Creatinine Clr Calc Pharmacy 30.6 ml/min; Est GFR (Non-African American) 26.8; Potassium 3.1 mmol/L (3.5-5.1)
[2020-08-22] MEDS ORDERED: FUROSEMIDE 40 MG in SYRINGE 0 ML IV ONE (13:17)
[2020-08-22] MEDS ORDERED: FUROSEMIDE 40 MG/4 ML VIAL IV ONE (13:30)
[2020-08-22] MEDS ORDERED: cefTRIAXone SODIUM 2,000 MG in DEXTROSE 5% 50 ML IV SCH (14:00)
--- NOTE | 2020-08-22 15:21 | Neurology Consultation ---
Date of Consultation August 22, 2020 Assessment & Plan (1) Atrial fibrillation with RVR: (2) Elevated troponin: (3) Acute kidney injury superimposed on CKD: (4) AMS (altered mental status): N/a, patient prior to being seen History of Present Illness Attending Physician: Randi Doherty MD History of Present Illness Annette Cho is an 80 yo man w/ PMH of COPD, Afib on apixaban, HTN, HLD, prediabetes, neuropathy, PVD, CKD and recurrent falls who p/t [facility] with SOB, AMS, h/o right frontal lobe infarct, right gaze preference and possible hemineglect. Unclear [employer]. In the ED, BP 196/86He was afebrile, heart rate 68, respiratory rate 22, satting 94% on 3L. Labs notable for WBC 16.4, hemoglobin 15, platelets 173, potassium level 2.9 with normal sodium, BUN 19, creatinine elevated 2.18, glucose 88, INR 1.3, LFTs within normal, mag mildly low at 1.7, calcium 9.7, troponin mildly elevated 0.076, Covid negative. Chest x-ray showed chronic left basilar scarring with low lung volumes, no new focal consolidation or evidence of pulmonary edema, stable cardiomegaly. Further imaging reviewed independently. CT head shows stable right frontal lobe chronic infarct, moderate to severe SVID, no clear hemorrhage or new hypodensity. MRI brain shows no acute infarct or signs of press, chronic infarcts in the right frontal lobe/right cerebellum/right posterior parafalcine frontal lobe/right temporal lobe, and extensive confluent SVID associated with generalized atrophy and ex vacuo dilation. Incidentally noted to have sinus disease. EKG showed Afib with RVR and diffuse QT changes. TTE showed EF 50-55%, borderline global hypokinesis of LV, moderate LVH, mild AR, mild to moderate MR, LA moderately enlarged. A1c 5.1, LDL 38, UA + for pyuria/hematuria but no infection. Unfortunately patient prior to being seen. Allergies Allergy/AdvReac Type Severity Reaction Status Date / Time ciprofloxacin AdvReac Unknown GI UPSET Verified 08/21/20 13:29 Home Medications Medication Instructions Recorded Confirmed Type Refresh Liquigel 1 drp OPHTHALMIC (EYE) Q4 PRN 04/14/18 08/21/20 History cholecalciferol (vitamin D3) 2,000 unit PO DAILY 04/14/18 08/21/20 History [Vitamin D3] sennosides-docusate sodium [Senna 2 tab PO HS 04/14/18 08/21/20 History with Docusate Sodium] tafluprost (PF) 0.0015 % eye drops 1 drops OP HS ea 05/13/19 08/21/20 History in a dropperette melatonin 5 mg tablet 10 mg PO HS tab 06/01/19 08/21/20 History bethanechol chloride 50 mg tablet 50 mg PO BID #180 tab 12/20/19 08/21/20 Rx ipratropium bromide 0.03 % nasal See Rx Instructions .ROUTE .COMPLEX 02/10/20 08/21/20 History spray metoprolol tartrate 100 mg tablet 100 mg PO Q12 #180 tab 05/10/20 08/21/20 Rx budesonide-formoterol HFA 160 2 puff INH Q12H #10.2 gm 06/28/20 08/21/20 Rx mcg-4.5 mcg/actuation aerosol inhaler apixaban 2.5 mg tablet 2.5 mg PO BID #180 tab 07/16/20 08/21/20 Rx montelukast 10 mg tablet 10 mg PO PM #30 tab 07/31/20 08/21/20 Rx acetaminophen [Tylenol Extra 500 mg PO Q6H PRN 08/21/20 08/21/20 History Strength] furosemide [Lasix] 20 mg PO QAM PRN 08/21/20 08/21/20 History gabapentin 300 mg PO BID 08/21/20 08/21/20 History guaifenesin [Mucinex] 600 mg PO Q12 PRN 08/21/20 08/21/20 History ipratropium-albuterol [Combivent 1 puff INHALATION QID 08/21/20 08/21/20 History Respimat] levalbuterol HCl 1.25 mg INHALATION Q8H 08/21/20 08/21/20 History lisinopril 5 mg PO DAILY 08/21/20 08/21/20 History mometasone-formoterol [Dulera] 2 puff INHALATION BID 08/21/20 08/21/20 History tamsulosin 0.4 mg PO QDD 08/21/20 08/21/20 History trazodone 50 mg PO HS 08/21/20 08/21/20 History Patient History Medical History Acute diastolic congestive heart failure BPH (benign prostatic hyperplasia) Chronic kidney disease, stage III (moderate) Chronic obstructive pulmonary disease Chronic respiratory failure with hypoxia COPD (chronic obstructive pulmonary disease) H/O long-term (current) use of anticoagulants Hypertension Hypotension Mediastinal adenopathy Open wound of foot Orthostatic hypotension Paroxysmal atrial fibrillation Recurrent falls Restrictive lung disease Vitamin D deficiency Surgical History Cataract extraction status H/O pneumonectomy History of inguinal hernia repair, bilateral S/P pneumonectomy LLL resection - [facility] S/P TURP Family History Sister Stroke Mother , age 76 Myocardial infarction Father , age 93 from fracture of neck due to MVA Cervical spine fracture Other No pertinent family history Social History Smoking Status: Never smoker Second Hand Exposure: No; Do You Dip or Chew Tobacco: No; Tobacco Cessation Education Requested by Patient: No Hx Alcohol Use: No Hx Substance Use: No Preferred Language: Cymraes Communication Ability: Effective Special Education Paraprofessional Required: No Beliefs That Will Affect Care: None marital status: Current Living Situation: Spouse Current Living Situation Comment: lives with in [place] current occupational status: retired Other Information That Helps Us Care for You: No other: 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) Feels Safe at Home: Declines to Answer Assistive Devices: Oxygen - Continuous Review of Systems Review of Systems: Unobtainable due to cognitive status Exam (Neuro) Physical Exam: n/a, patient Results & Data ([facility]) Vital Signs (Past 12 Hours) Vital Signs Pulse Pulse Resp BP BP Pulse Ox 08/22/20 12:00 101 H 15 161/79 H 91 08/22/20 08:00 98 H 24 108/91 94 08/22/20 05:52 78 18 129/103 H 08/22/20 04:00 78 21 PG Care Time/CCT Total # of Minutes Spent Total Time Spent with Patient: Total time spent is greater than 50% in coordination of care (as documented) at patient's floor/unit and/or counseling patient: Coding Level of Care Code None Diagnoses Atrial fibrillation with RVR I48.91 Elevated troponin R77.8 Acute kidney injury superimposed on CKD N17.9; N18.9 AMS (altered mental status) R41.82
--- NOTE | 2020-08-22 16:10 | Death Pronouncement Note ---
Date of Service August 22, 2020 Pronouncement Note Admission Date Admission Date: August 21, 2020 Date and Time of Date of : 08/22/20 Time of : 16:07 Contributing Factors (1) Atrial fibrillation with RVR: (2) Elevated troponin: (3) Acute kidney injury superimposed on CKD: (4) AMS (altered mental status): (5) Acute and chronic respiratory failure with hypoxia: (6) Acute on chronic diastolic CHF (congestive heart failure): (7) Complicated UTI (urinary tract infection): (8) Chronic obstructive pulmonary disease: Hospital Course Hospital Course: On 08-21 patient came to ER after falling in his bathroom. He has been falling frequently. Head CT and MRI brain showed no acute traumatic injury. Patient was admitted to telemetry unit. Neuro consult was ordered. Pt was started on BP medications for hypertensive urgency. On the morning of 08-22, patient became acutely agitated, pulling at his sheppard catheter causing it to bleed, causing skin tears to both of his hands. He was unable to be calmed or restrained by the bedside sitter and was danger to himself, pulling oxygen off, pulling at his sheppard. Patient required wrist restraints to be applied for patient safety. Ativan 1mg was given which helped him rest. Throughout the morning, a urinalysis was obtained which suggested UTI. Rocephin was started. Additionally, patient continued to be dyspneic, so fluids were stopped and lasix was given. Patient quickly decompensated throughout the afternoon. His heart rate increased to 130 and his respirations increased to 40. Daughter who is a [employer] employee and POA was called to bedside. Daughter confirmed that patient is do not intubate and do not resuscitate. She asked for him to be given morphine. Patient ended up passing away before morphine could be given. Summary Additional details: see above Additional Data Confirmation of : no pulse, no respirations, no heart sounds and pupils fixed and dilated Family: at bedside Attending/PCP notified?: Yes Attending physician: Randi Doherty MD Was code activated?: No Autopsy requested?: No hide examiner notified?: No Organ bank notified?: No Advance directives: No Coding Level of Care Code D/C Day Management >30 mins Diagnoses Atrial fibrillation with RVR I48.91 Elevated troponin R77.8 Acute kidney injury superimposed on CKD N17.9; N18.9 AMS (altered mental status) R41.82 Acute and chronic respiratory failure with hypoxia J96.21 Acute on chronic diastolic CHF (congestive heart failure) I50.33 Complicated UTI (urinary tract infection) N39.0 Chronic obstructive pulmonary disease J44.9 COPD type: unspecified COPD
--- NOTE | 2020-08-22 16:43 | Electrocardiogram Report ---
Test Reason : Blood Pressure : / mmHG Vent. Rate : 144 BPM Atrial Rate : 166 BPM P-R Int : 000 ms QRS Dur : 096 ms QT Int : 250 ms P-R-T Axes : 000 036 -55 degrees QTc Int : 387 ms Poor data quality, interpretation may be adversely affected Atrial fibrillation with rapid ventricular response Incomplete right bundle branch block Diffuse Nonspecific ST abnormality Abnormal ECG When compared with ECG of 21-AUG-2020 12:44, No significant change Confirmed by Jez Araiza ([id number]) on 08/22/2020 4:43:12 PM Referred By: REFERRED SELF Confirmed By:Jez Araiza
--- NOTE | 2020-09-10 07:15 | Discharge Summary ---
Date of Service September 10, 2020 Admission HPI Per Admitting Provider This is an 80 yo M with PMHx of afib on eliquis, HTN, HLD, diastolic CHF on lasix, COPD, chronic respiratory failure with hypoxia, restrictive lung disease, vitamin D deficiency. Patient is a poor historian and does not provide specific information and seems to have difficulty answering simple questions with the Mini-Mental exam at the beginning of my evaluation. His is present at bedside, also a poor historian and does not aid in the HPI. Pt initially presented to the ER with left sided gait s/p fall in the bathroom which occurred this morning. He reports multiple falls recently, and that every time he falls it is in the bathroom. He fell backwards and hit between the shoulder blades, but denies hitting his head or LOC. He was using a walker and able to get himself back up using the walker and with help of his who is present at bedside. Afterwards the noticed he was having difficulty ambulating and walking. Pt admits to having weakness in both knees. He is unable to determine if he had a left or right-sided weakness when he got up from falling. He seems to have left arm weakness which is not normal for him. He has a rightward gaze and left hemineglect specifically regarding his left arm and not having the ability to look to the left. Patient admits to feeling significantly short of breath which started last night. He uses his inhalers routinely and wears 2 L O2 continuously at home. Patient is requesting a drink of water while standing at bedside multiple times, we attempted this to see if he had any difficulty with swallowing, patient coughs significantly after drinking 3 sips of water. With pinching of the straw and slowing of sipping, he does better. He admits to this occurring at home on a regular occasion. Patient denies any issues with chewing or swallowing solid foods previously. Pt follows with Dr. Todd with cardiology as outpatient, and if he falls tries to remember to tell him. He uses a walker most of the time. Pt does not typically weight himself and does not know what his dry weight is. Denies feeling swollen. He missed his morning medications including metoprolol, Lasix, and lisinopril. He is slightly hypertensive upon admission with BP 177/99, his rate is controlled in the 90s at bedside. He also missed Eliquis, however is not a candidate for lytic therapy. The CT of the head has been conducted and read as a poor study, will attempt to obtain an MRI of the brain. The patient is in atrial fibrillation on EKG but is rate controlled at this time. His troponin is bumped on admission but he denies having any chest pain, tightness, nausea, vomiting, numbness or pain in arms or jaw. Principal Diagnosis acute on chronic hypoxic respiratory failure Discharge Exam Constitutional well developed, well nourished, + ill appearing and + combative; no acute distress Eyes PERRL, conjunctivae normal, anicteric sclerae ENMT Mouth: oral mucous membranes not dry Respiratory + cough and + tachypneic (wearing 5L oxymask); + abnormal respiratory effort, no respiratory distress and no labored breathing Auscultation: + crackles and + rales; + lungs not clear to auscultation and no rhonchi Cardiovascular Rate/Rhythm: regular rate and regular rhythm Heart Sounds: no murmur and no cardiac rub Vessels: normal peripheral pulses and radial pulses present; no JVD Extremities: no edema Gastrointestinal (Abdomen) Inspection/Auscultation: abdomen normal to inspection and normal bowel sounds; abdomen not distended Percussion/Palpation: abdomen soft; abdomen nontender, no guarding, abdomen not rigid and no hepatosplenomegaly Musculoskeletal Head/Neck/Chest: normocephalic and head atraumatic Spine: no cervical spinal tenderness, no cervical muscular tenderness, no thoracic spinal tenderness and no lumbar spinal tenderness Skin no rashes, warm and dry Trauma: + laceration (dorsum of hands) Neurologic CN's II-XI intact bilaterally and moves all extremities Motor/Sensory: no tremor and no sensory deficit Psychiatric Orientation: alert; + not oriented to person, + not oriented to place and + not oriented to time Apperance: + disheveled; + inappropriately groomed Affect: + anxious affect; + affect not euthymic and no tearful affect Discharge Data Allergies Allergy/AdvReac Type Severity Reaction Status Date / Time ciprofloxacin AdvReac Unknown GI UPSET Verified 08/21/20 13:29 Consultations 08/21/20 13:52 ED Decision to Admit Stat 08/21/20 18:01 Consult Case Management - Discharge Planning Routine Consult Neurology Routine Ordered Studies 02/09/21 12:36 CT head/brain wo con Stat 08/22/20 00:23 MR brain wo con Routine Hospital Course (1) Acute and chronic respiratory failure with hypoxia: patient in the setting of respiratory failure patient was a "do not intubate" and developed agonal respirations after discussion with patients daughter at bedside, patient was made comfort care (2) Atrial fibrillation with RVR: (3) Elevated troponin: (4) Acute kidney injury superimposed on CKD: 2-9 Cr 2.18, BUN 19 appears to be slightly elevated compared to previous records, baseline of 1.5-1.7. Will hold lisinopril and lasix for now 2-10 repeat BMP at noon -- Cr 2.21 currently, not improving will stop fluids and start lasix (5) AMS (altered mental status): (6) Acute on chronic diastolic CHF (congestive heart failure): 2-9 Chronic diastolic CHF - continue metoprolol tartrate 100 mg BID - Hold lisinopril 5 mg daily and lasix 20 QAM 2-10 Echo EF 50-55%, borderline global hypokinesis, moderate LVH, mild aortic regurgitation giving lasix 20mg IV once, stop fluids (7) Complicated UTI (urinary tract infection): UA with trace LE, 10-30 WBC, negative nitrite Follow urine culture Treat with rocephin empirically (8) Chronic obstructive pulmonary disease: - Cont Atrovent, Combivent, and nasal spray - Speech eval as above - Low threshold for evaluating for aspiration pna with mild coughing with sips of thin liquids, afebrile, no WBC for now. Total Time Total Time Spent Total Time Spent (In Minutes): 35 Total Time Includes: Examination of the Patient and Communication With Other Providers Discharge Plan Discharge Items Patient Disposition: Coding Level of Care Code D/C Day Management >30 mins Diagnoses Acute and chronic respiratory failure with hypoxia J96.21 Atrial fibrillation with RVR I48.91 Elevated troponin R77.8 Acute kidney injury superimposed on CKD N17.9; N18.9 AMS (altered mental status) R41.82 Acute on chronic diastolic CHF (congestive heart failure) I50.33 Complicated UTI (urinary tract infection) N39.0 Chronic obstructive pulmonary disease J44.9 COPD type: unspecified COPD
== END 2020-08-22 18:23 | disposition expired | DRG 304 ==
LOC: ED 12:14 → SUATTDRO 14:27 → 1E 14:27
DX: R41.82 Altered mental status, unspecified; J96.21 Acute and chronic respiratory failure with hypoxia; N17.9 Acute kidney failure, unspecified; R26.2 Difficulty in walking, not elsewhere classified; Z78.1 Physical restraint status; E78.5 Hyperlipidemia, unspecified; R79.89 Other specified abnormal findings of blood chemistry; I73.9 Peripheral vascular disease, unspecified; I48.0 Paroxysmal atrial fibrillation; R91.8 Other nonspecific abnormal finding of lung field; Z79.899 Other long term (current) drug therapy; N40.0 Benign prostatic hyperplasia without lower urinary tract symptoms; N39.0 Urinary tract infection, site not specified; N18.30 Chronic kidney disease, stage 3 unspecified; J98.4 Other disorders of lung; Z88.1 Allergy status to other antibiotic agents; I13.0 Hypertensive heart and chronic kidney disease with heart failure and stage 1 through stage 4 chronic kidney disease, or unspecified chronic kidney disease; I48.20 Chronic atrial fibrillation, unspecified; Z79.01 Long term (current) use of anticoagulants; I50.33 Acute on chronic diastolic (congestive) heart failure; I16.0 Hypertensive urgency; Z66 Do not resuscitate; G81.94 Hemiplegia, unspecified affecting left nondominant side; Z90.2 Acquired absence of lung [part of]; J44.9 Chronic obstructive pulmonary disease, unspecified; E55.9 Vitamin D deficiency, unspecified; G62.9 Polyneuropathy, unspecified